=== PATIENT | female | born 1940 | race African-American/Black ===

== ENCOUNTER → 2020-06-29 11:09 | Outpatient (BNVA) | payer MEDICARE, SELFPAY | PROVIDERS: Visit Provider Hospitalist | DX: Z13.89 Encounter for screening for other disorder (principal) | CPT/HCPCS: Q3014 ==

== ENCOUNTER → 2021-01-01 11:18 | Outpatient (BNVA) | payer MEDICARE, SELFPAY | PROVIDERS: Visit Provider Hospitalist | DX: J38.00 Paralysis of vocal cords and larynx, unspecified (principal); J43.2 Centrilobular emphysema; J96.11 Chronic respiratory failure with hypoxia | CPT/HCPCS: 99212 ==

== ENCOUNTER 2021-05-25 17:36 | Inpatient (IN) | payer MEDICARE, OTHER, SELFPAY ==
[2021-05-17 10:08] VITALS: BMI 26.4
[2021-05-25] VITALS (30 sets, daily range): BP systolic 97–219; BP diastolic 53–100; PULSE 71–95; RESP 12–28; TEMP 35.2–36.3; O2SAT 88–100; BMI 27.6
--- NOTE | ~2021-05-25 | XR_ITS ---
EXAMINATION: XR CHEST CLINICAL INFORMATION: Emergent bedside trach COMPARISON: 05/25/2021 TECHNIQUE: Frontal view of the chest was obtained. FINDINGS: Midline tracheostomy in place. This is at the midline. Extensive subcutaneous emphysema within the neck and chest wall, increased from prior. The lungs are well expanded. No consolidation, edema, or effusion. No definite pneumothorax seen, though the presence of subcutaneous emphysema limits the evaluation. The cardiomediastinal silhouette is within normal limits. XR/XR chest 1V IMPRESSION: Tracheostomy tube now in place. Increased subcutaneous emphysema.
--- NOTE | ~2021-05-25 | US_ITS ---
Indication: Edema, pain EXAMINATION: Bilateral lower extremity venous Dopplers. Real-time imaging by the client partner Findings; There is pitting edematous change bilaterally which limits evaluation but given this there is no convincing evidence of filling defect to suggest a thrombus. There is flow documented No evidence of a popliteal fluid collection. The partially visualized calf veins are within normal limits. US/US venous duplex UE LT IMPRESSION: Limited exam from edematous lower extremities. No convincing evidence for DVT bilateral lower extremities
--- NOTE | ~2021-05-25 | US_ITS ---
Indication: Edema, pain EXAMINATION: Bilateral lower extremity venous Dopplers. Real-time imaging by the solid fiber paster operator Findings; There is pitting edematous change bilaterally which limits evaluation but given this there is no convincing evidence of filling defect to suggest a thrombus. There is flow documented No evidence of a popliteal fluid collection. The partially visualized calf veins are within normal limits. US/US venous duplex LE BI IMPRESSION: Limited exam from edematous lower extremities. No convincing evidence for DVT bilateral lower extremities
--- NOTE | ~2021-05-25 | XR_ITS ---
EXAMINATION: XR CHEST CLINICAL INFORMATION: Pneumomediastinum COMPARISON: 05/25/2021 TECHNIQUE: Frontal view of the chest was obtained. XR/XR chest 1V FINDINGS / IMPRESSION: Tracheostomy tube stably positioned. No focal consolidation. No pleural effusion or pneumothorax. No pneumomediastinum. Normal heart size and pulmonary vascularity. Aorta is tortuous and atherosclerotic. Small moderate hiatal hernia.
--- NOTE | ~2021-05-25 | XR_ITS ---
EXAMINATION: XR CHEST CLINICAL INFORMATION: Shortness of breath COMPARISON: April 17, 2006 TECHNIQUE: AP portable view of the chest was obtained. FINDINGS: There is a large amount of subcutaneous air seen about the neck as well as pneumomediastinum there is a density seen medial aspect of the right lung base which may represent mamillation of the right hemidiaphragm versus mass of other etiology. Heart upper limits of normal size. No evidence of pulmonary edema. No definite pneumothorax. Vascular calcifications present. XR/XR chest 1V IMPRESSION: Large amount of subcutaneous air about the neck bilaterally as well as pneumomediastinum. Question possible right base density.
--- NOTE | ~2021-05-25 | XR_ITS ---
EXAMINATION: XR CHEST CLINICAL INFORMATION: Short of breath COMPARISON: None TECHNIQUE: Frontal view of the chest was obtained. FINDINGS: The lungs are well-expanded and clear. The heart size and pulmonary vascularity is normal. No gross bony abnormality seen. XR/XR chest 1V IMPRESSION: Unremarkable chest exam
--- NOTE | 2021-05-25 12:21 | P.HPSUR_ITS ---
Pre-Procedural Eval Section A Date of Service: 05/25/21 The patient is an INPATIENT: No Section B Chief Complaint: bronc,tracheostomy closure Details of Present Illness: Persistent opening of tracheostomy stoma and question of vocal chord paralysis/trach stenosis. Present Medications: see Short Stay Collaborative assessment Allergies: Allergies Allergy/AdvReac Type Severity Reaction Status Date / Time codeine Allergy Severe rash/itchin Verified 05/17/21 10:05 g Review of Systems Sugical H&P ROS: Negative: Constitution, Cardiovascular, Respiratory, Neurological, Psychiatric, Hem-Onc, Allergic/Immunologic, Gastrointestinal, Genitourinary, Musculoskeletal, Integumentary, Endocrine and Eyes/Ears/No se/Throat Exam Surgical H&P Exam: Normal: HEENT, Normal: Heart, Normal: Lungs, Normal: Extremities, Normal: Abdomen, Normal: Skin and Normal: Neurological Plan Diagnosis/Plan: Unchanged I have reviewed the history and physical and performed a pertinent physical examination on my patient. No changes have occurred unless specified.Plan today is for laryngeal mask and bronchoscopy with assessment of the vocal cords and tracheal stenosis followed by revision of tracheostomy stoma with muscle flap and closure.
--- NOTE | 2021-05-25 12:53 | HO.ANESPROP2 ---
HPI - Anesthesia Eval Consult details Narrative: Tracheal dependence [facility] Active Problems Active Problems: All Active Problems (Updated 05/17/21 @ 10:08 by Little Rosario RN) HTN (hypertension) (Acute) Postmenopausal (Acute) Tracheostomy dependence (Acute) Chronic respiratory failure (Acute) COPD (chronic obstructive pulmonary disease) (Acute) Vocal cord paralysis (Acute) Past Medical History Medical History (Updated 05/17/21 @ 10:08 by Little Rosario RN) Chronic respiratory failure COPD (chronic obstructive pulmonary disease) Cough Elevated cholesterol Endocrine alopecia GERD (gastroesophageal reflux disease) Insomnia Low back pain Myocardial infarction Takotsubo syndrome Tracheostomy dependence Vocal cord paralysis Family History Family history of problems with anesthesia: No Surgical History Surgical History (Updated 05/17/21 @ 10:07 by Little Rosario RN) Hx of colonoscopy Hx of tonsillectomy Hx of tracheostomy Hx of umbilical hernia repair History of Problems with Anesthesia: No Social History Social History Are you a primary home care companion to a significant other at home: No Do you presently have visiting nurse or other home services: Yes ([facility] 1 x week) Patient Tobacco Use Status: Former Tobacco user Quit Date: 2015 Tobacco use type: Cigarette Years Smoked: 30+ years e-Cigarette/Vaping Use: Never Used Second Hand Smoke Exposure: No Use of substances other than those prescribed or required for medical reasons: No Are you DNR?: No Advance Directives: No Advance Directives Information Provided: Yes Advance Directives on File: No Meds Allergies Allergy/AdvReac Type Severity Reaction Status Date / Time codeine Allergy Severe rash/itchin Verified 05/17/21 10:05 g Active Medications: Current Medications Cefazolin Sodium/Dextrose (Ancef) 2 gm in 50 mls @ 100 mls/hr IV PREOP ONE Stop: 05/25/21 12:54 Home Medications Medication Instructions Recorded Confirmed Last Taken Type albuterol sulfate 1 vial INHALATION Q4H PRN 05/17/21 05/17/21 Unknown History albuterol sulfate 90 mcg/actuation 2 puff INHALATION Q6H PRN 05/17/21 05/17/21 05/25/21 History aerosol inhaler (ProAir HFA) atorvastatin 80 mg tablet 1 tab PO DAILY 05/17/21 05/17/21 05/25/21 History bisoprolol fumarate 5 mg tablet 1 tab PO DAILY 05/17/21 05/17/21 05/25/21 History budesonide-formoterol HFA 160 2 puff PO BID 05/17/21 05/17/21 05/25/21 History mcg-4.5 mcg/actuation aerosol inhaler (Symbicort) cholecalciferol (vitamin D3) 50 50 mcg PO Q OTHER DAY 05/17/21 05/17/21 05/25/21 History mcg (2,000 unit) capsule (Vitamin D3) ipratropium 0.5 mg-albuterol 3 mg 3 ml INHALATION QID 05/17/21 05/17/21 Unknown History (2.5 mg base)/3 mL nebulization soln omeprazole 10 mg capsule,delayed 10 mg PO DAILY 05/17/21 05/17/21 05/25/21 History release tiotropium bromide 18 mcg capsule 1 cap PO DAILY 05/17/21 05/17/21 05/25/21 History with inhalation device (Spiriva with HandiHaler) Exam Exam Date and Time: May 25, 2021 1253 Height,Weight and Vital Signs: Height 5 ft 1 in Weight 63.503 kg Last Vital Signs Temp 97.4 F 05/25/21 11:29 Pulse 76 05/25/21 11:29 Resp 20 05/25/21 11:29 BP 171/62 H 05/25/21 11:29 Pulse Ox 93 05/25/21 11:29 Airway Mallampati Class: III TM Dist: >3cm Neck ROM: Full Denture: Upper and Lower Loose/Missing/Broken Teeth: Yes Heart: [id number] Lungs: cta b/l Assessment and Plan Assessment Anesthesia Assessment: Anesthesia Plan Discussed and Chart Reviewed Final Anesthetic Review Family History of Problems with Anesthesia: No History of Problems with Anesthesia: No NPO: Yes ASA Class: IV Final Preanesthetic Review: No Changes in Pt Med Stat, Meds/Allgs Chart Reviewed, Consent Obtained/Reviewed and Anes Risks/Benef Reviewed Patient Risk: High Procedure Risk: Intermediate Assessment/Block/Sedation in SS: Assess/Block/Sedation-SS Anesthetic Plan Anesthetic Plan: GA and Agree w/ Assess. and Plan Disposition: Standard PACU
--- NOTE | 2021-05-25 14:33 | W.PM.OPN ---
Operative Note Operative Note Date of Service: 05/25/21 Narrative: Preoperative diagnosis: Patent tracheal stoma Postoperative diagnosis: Same Operation: bronchoscopy and closure of tracheal stoma with strap muscle flaps Surgeon:Simone Dobson MD Computer Installation Engineer: none Anesthesia: General Specimens: None EBL: Minimal Operation in detail: The patient was brought to the operating room, placed supine on the operative table, anesthesia monitoring devices were placed, and the patient was intubated with a laryngeal mask. A time-out was performed confirming the correct patient, site, and procedure. The bronchoscope was then placed through the LMA and the cords were visualized both moving and symmetric. There did appear to be some mild tracheal stenosis just distal to the cords about 18 mm in diameter. The patient was then reintubated with a 6 [place] endotracheal tube. The neck and upper chest were then widely prepped and draped in a standard sterile fashion. After injection of local anesthetic, an incision was made above and below the open tracheal stoma. The skin was then dissected off of the trachea itself above and below about 1 cm each with the Metzenbaum scissors. This was done along with size of the skin attachments as well and the excess skin was excised. The strap muscles were then visualized and mobilized with the Metzenbaum scissors. The hole in the trachea could easily be appreciated in the endotracheal tube beneath it was visualized. Three interrupted 3-0 Vicryl sutures were done to close the tracheal hole itself. The mobilized strap muscles were then closed over the top of the trachea with a running 3-0 Vicryl suture. The skin was then closed with a running 3-0 Vicryl suture Dermabond glue and Steri some. Dressing of Telfa Tegaderm was then applied. The patient tolerated the procedure well, was extubated at the conclusion of the operation, and brought to the recovery room in stable condition.
--- NOTE | 2021-05-25 16:40 | P.OP_ITS ---
Operative Note Operative Note Date of Service: 05/25/21 Narrative: Preoperative diagnosis: Vocal cord edema/tracheal stenosis, hypoxia Postoperative diagnosis:same Procedure:Emergent percutaneous tracheostomy tube placement Surgeon: Francisco Dimas MD, Jeovany Urbano Bacteriology Technician: Anesthesia:General Indications for procedure:Called to see patient for progressive hypoxia in PACU following tracheal closure, unable to place ET tube. Operative findings: emergent tracheostomy tube placement Specimen: none Estimated blood loss:20 mls Complications:none Procedure details: Patient was placed in a supine position in the PACU. Skin was prepped with Betadine. The previous tracheostomy incision was opened with a scalpel. A trachea hook was used to grasp the tracheal and access to the trachea gained with a hemostat at the previous tracheostomy site. The percutaneous guide was advanced distal into the trachea and the dilator placed to the black stripe. Dilator was removed and the tracheostomy advanced easily into the trachea. Tube was suctioned clear. Patient ventilated easily and balloon filled. Tube sutured with Prolene suture. Sterile dressing applied.
[2021-05-25] MEDS: fentaNYL citrate/PF 100 MCG/2 ML VIAL IVPUSH (17:20)
[2021-05-25] MEDS: dexAMETHasone sod phosphate 4 MG/ML VIAL 8 MG IVPUSH (17:33)
[2021-05-25] MEDS: ceFAZolin Sodium/Dextrose,Iso 2 GM/50 ML PIGGYBACK IV (17:33)
[2021-05-25] MEDS: Labetalol HCL 100 MG/20 ML VIAL 10 MG IVPUSH (17:33)
[2021-05-25] MEDS: fentaNYL citrate/PF 100 MCG/2 ML VIAL 50 MCG IVPUSH (18:05)
--- NOTE | 2021-05-25 18:28 | PC.NURSE ---
Pt arrived at ICU at 1720. HPI: complications in post op period that included sub q emphysema, + stridor. MD attempted to intubate with 5.5 ett. Now trach reestablished with 8.0. Per retort feeder ground bone: Plan goals of care tomorrow regarding feeding and the potential to place NGT within the next few days. Current vent settings: SIMV/VC/ 360/16/5/7/.4 tolerating well. Mildly bronchospastic on EtCO2 wave form. MD aware. Tolerating vent well at this time.
--- NOTE | 2021-05-25 18:39 | PHA.MEDREC ---
Pharmacy Consult ? Medication Reconciliation RN completed med rec and pharmacy reviewed.
--- NOTE | 2021-05-25 19:12 | P.PNCC_ITS ---
Critical Care Event Note Summary Date of Service: 05/25/21 Code activated: No Narrative: I was called to the PACU to see Mrs. Garcia bec of acute respiratory failure 2? lower airway obstruction. The patient is a 80 yo F who is immed s/p closure of a tracheal stoma from a previous tracheostomy. Postop in the PACU she developed stridor and resp distress. On my arrival, the patient was being prepared for reintubation. The previous intubation attempt immediately prior to today's surgery had encountered difficulty placing a 6.0 endotracheal tube. I assisted Dr. Hall with the re- intubation attempt in the PACU. A 5.5 tube with the glidescope was prepped. The patient was sedated with ketamine and a 40 mcg bolus Precedex. The glidescope was introduced and the glottis was easily visualized. The 5.5 ETT was placed at the glottic opening but could not be advanced. A 6.0 tube was placed at the glottic opening and a bougie was attempted to be placed through the 6.0 tube into the trachea. The bougie would not advance. The patient was therefore ventilated with the endotracheal tube at the glottic opening, while a tracheostomy was performed. I assisted Dr. Dimas and Dr. Urbano in placing the tracheostomy. After the trach tube was in, there was good oxygenation and good chest rise. The patient was subsequently admitted to the ICU. This case had a high probability of a clinically significant, sudden, or life threatening deterioration of this patient's condition which required my full and direct attention, intervention and personal management. Critical Care Time (minutes): 50 Critical Care Time Critical Care Time (minutes): 60
[2021-05-25] MEDS: HYDROmorphone HCl 0.5 MG/0.5 ML SYRINGE IVPUSH ×3 (19:17→22:06)
--- NOTE | 2021-05-25 19:17 | P.HPCC_ITS ---
History of Present Illness Date of Service: 05/25/21 Attending physician on admission: Simone Dobson Chief Complaint: Airway obstruction Mrs. Garcia was admitted to the ICU following her emergency tracheostomy in the PACU this afternoon. The patient is a 80 yo F with PMHx of coronary artery disease, COPD, cardiac arrest, Takotsubo cardiomyopathy with EF back to normal, essential hypertension, and dyslipidemia.? She is a retired teacher. The patient had a previous tracheostomy about 2 1/2 years ago and was ultimately decannulated.? The stoma, however, remained open after more than a year.? The patient had a productive cough that she felt was hindering the healing of that area.? She presented today for closure of the tracheostomy stoma. The intraop course was notable for inability to pass 6.5 ETT after induction of anesthesia.? A 6.0 tube was used.? Postop the patient was extubated without incident and arrived in PACU breathing easy w Sat 100% on 6L FM.? Subsequently developed resp distress and SQ emphysema.? Attempt at reintubation failed and the patient underwent tracheostomy in the PACU.? Subseq admitted to ICU.? (See my previous note.) On exam in the ICU, the patient was fully awake, c/o pain, able to write notes.? We were able to put her on PSV, with good tidal vols and Sat on PSV 7, but when we gave her opiate analgesics, she hypoventilated so we put her back on AC mode.? HR 82, SR.? BP 122/68.? Sat 96% on 40%/+5.? She has bilat SQ emphysema.? Chest shows coarse crackles. IMPRESSION:? 80 yo woman with above PMHx.? Required emergency tracheostomy in PACU for lower airway obstruction and resp failure, as outlined in my earlier note.? Admitted to ICU overnite for ventilatory management and monitoring. Dx: 1. Airway obstruction 2. Acute respiratory failure. 3. CAD. [facility] Past Medical History Medical History (Updated 05/17/21 @ 10:08 by Little Rosario RN) Chronic respiratory failure COPD (chronic obstructive pulmonary disease) Cough Elevated cholesterol Endocrine alopecia GERD (gastroesophageal reflux disease) Insomnia Low back pain Myocardial infarction Takotsubo syndrome Tracheostomy dependence Vocal cord paralysis Surgical History Surgical History (Updated 05/17/21 @ 10:07 by Little Rosario RN) Hx of colonoscopy Hx of tonsillectomy Hx of tracheostomy Hx of umbilical hernia repair Social History Social History Household Members: None Housing: Apartment Are you a primary health care manager to a significant other at home: No Do you presently have visiting nurse or other home services: Yes Patient Tobacco Use Status: Former Tobacco user Quit Date: 2015 Tobacco use type: Cigarette Years Smoked: 30+ years e-Cigarette/Vaping Use: Never Used Second Hand Smoke Exposure: No Use of substances other than those prescribed or required for medical reasons: No Have you been hit, kicked, punched, or otherwise hurt by someone within the past year? If so, by whom?: No Do you feel safe in your current relationship?: No Current Relationship Is there a partner from a previous relationship who is making you feel unsafe now?: No Are you made to feel afraid or neglected: No Are you DNR?: No Advance Directives: No Advance Directives Information Provided: Yes Advance Directives on File: No Do you have thoughts of harming others: None Do you have a plan to hurt others: No Plan Recently lost weight without trying: No Nutrition Risks: No Nutritional Risk Patient : No : No Poor oral hygiene: No Meds Allergies Allergy/AdvReac Type Severity Reaction Status Date / Time codeine Allergy Severe rash/itchin Verified 05/17/21 10:05 g Active Medications: Current Medications Acetaminophen (Acetaminophen 325 Mg Tablet) 650 mg PO ONCE PRN PRN Reason: Pain, Mild (Pain Scale 1-3) Fentanyl (Fentanyl Citrate/Pf 100 Mcg/2 Ml Vial) 25 mcg IVPUSH Q5M PRN; Protocol PRN Reason: Pain, Moderate (Pain Scale 4-6 Fentanyl (Fentanyl Citrate/Pf 100 Mcg/2 Ml Vial) 25 mcg IVPUSH Q5M PRN; Protocol PRN Reason: mild pain Fentanyl (Fentanyl Citrate/Pf 100 Mcg/2 Ml Vial) 50 mcg IVPUSH Q5M PRN; Protocol PRN Reason: mod pain Hydromorphone HCl (Hydromorphone Hcl 0.5 Mg/0.5 Ml Syringe) 0.5 mg IVPUSH Q1H PRN; Protocol PRN Reason: mild pain Ondansetron HCl (Ondansetron Hcl 4 Mg/2 Ml Vial) 4 mg IVPUSH ONCE PRN PRN Reason: Nausea and Vomiting Home Medications Medication Instructions Recorded Confirmed Last Taken Type albuterol sulfate 1 vial INHALATION Q4H PRN 05/17/21 05/17/21 Unknown History albuterol sulfate 90 mcg/actuation 2 puff INHALATION Q6H PRN 05/17/21 05/17/21 05/25/21 History aerosol inhaler (ProAir HFA) atorvastatin 80 mg tablet 1 tab PO DAILY 05/17/21 05/17/21 05/25/21 History bisoprolol fumarate 5 mg tablet 1 tab PO DAILY 05/17/21 05/17/21 05/25/21 History budesonide-formoterol HFA 160 2 puff PO BID 05/17/21 05/17/21 05/25/21 History mcg-4.5 mcg/actuation aerosol inhaler (Symbicort) cholecalciferol (vitamin D3) 50 50 mcg PO Q OTHER DAY 05/17/21 05/17/21 05/25/21 History mcg (2,000 unit) capsule (Vitamin D3) ipratropium 0.5 mg-albuterol 3 mg 3 ml INHALATION QID 05/17/21 05/17/21 Unknown History (2.5 mg base)/3 mL nebulization soln omeprazole 10 mg capsule,delayed 10 mg PO DAILY 05/17/21 05/17/21 05/25/21 History release tiotropium bromide 18 mcg capsule 1 cap PO DAILY 05/17/21 05/17/21 05/25/21 History with inhalation device (Spiriva with HandiHaler) Physical Exam Vital Signs: Vital Signs: Last Vital Signs Temp 97.1 F 05/25/21 14:40 Pulse 82 05/25/21 16:55 Resp 16 05/25/21 18:05 BP 146/75 H 05/25/21 16:55 Pulse Ox 96 05/25/21 17:36 BMI result Body Mass Index 27.6 Results Imaging Radiologist's Impressions: Impressions Chest X-Ray 05/25/21 15:43 IMPRESSION: Large amount of subcutaneous air about the neck bilaterally as well as pneumomediastinum. Question possible right base density. Chest X-Ray 05/25/21 16:46 IMPRESSION: Tracheostomy tube now in place. Increased subcutaneous emphysema.
[2021-05-26] VITALS (22 sets, daily range): BP systolic 98–134; BP diastolic 42–63; PULSE 73–112; RESP 11–24; TEMP 34–37.1; O2SAT 92–98; BMI 31.2
[2021-05-26] MEDS: HYDROmorphone HCl 0.5 MG/0.5 ML SYRINGE IVPUSH ×5 (00:25→20:47)
[2021-05-26 05:23] LABS: VBG Base Excess 0.7 mmol/L; VBG HCO3 24 mmol/L (22-26); VBG pCO2 34 mmHg; VBG pH 7.44 (7.32-7.43); VBG pO2 54 mmHg
[2021-05-26 05:24] LABS: Venous Blood Gas Refer to POC result
[2021-05-26 05:38] LABS: MANUAL DIFF FLAG NO
[2021-05-26 05:44] LABS: Hematocrit 41.5 % (37.0-47.0); Hemoglobin 13.6 g/dl (12.0-16.0); Imm Gran Abs Auto 0.04 X10*3/uL (0.00-0.03); Imm Gran Pct Auto 0.4 % (0.0-0.4); Lymphocytes Absolute Auto 1.2 X10*3/uL (1.2-4.9); Lymphocytes Percent Auto 10.8 % (20-40); Mean Corpuscular HGB Conc 32.8 g/dl (31.0-35.0); Mean Corpuscular Hemoglobin 31.9 pg (27.0-33.0); Mean Corpuscular Volume 97.4 fL (80.0-98.0); Mean Platelet Volume 10.1 fL (9.4-12.3); Monocytes Absolute Auto 0.3 X10*3/uL (0.1-1.2); Monocytes Percent Auto 2.6 % (2-11); Neutrophils Absolute Auto 9.3 x10*3/uL (2.0-8.3); Neutrophils Percent Auto 86.2 % (45-73); Platelet Count 283 X10*3/uL (160-400); Red Blood Count 4.26 X10*6/uL (4.20-5.50); White Blood Count 10.7 X10*3/uL (4.8-10.8)
[2021-05-26 05:58] LABS: Anion Gap 14 (12-20); Blood Urea Nitrogen 20 mg/dL (9-16); Calcium 8.8 mg/dL (8.4-10.2); Carbon Dioxide 24 mmol/L (22-29); Chloride 103 mmol/L (96-108); Creatinine Clr Calc Pharmacy 60.3; Estimated Glomerular Filt Rate > 60; Glucose Random 123 mg/dL (60-115); Magnesium 1.9 mg/dL (1.6-2.6); Phosphorus 3.4 mg/dL (2.7-4.5); Potassium 4.6 mmol/L (3.3-5.1); Sodium 136 mmol/L (135-145)
[2021-05-26] MEDS: Albuterol/Iprat 2.5/0.5MG 3 ML AMPUL.NEB INHALE ×3 (07:44→19:45)
--- NOTE | 2021-05-26 09:14 | PM.PNGS ---
Subjective Subjective Date of Service: 05/26/21 Interval history: Says that she feels Looks comfortable On vent Physical Exam Vital Signs: Vital Signs: Last Vital Signs Temp 98.7 F 05/26/21 08:00 Pulse 82 05/26/21 08:00 Resp 16 05/26/21 08:00 BP 118/49 L 05/26/21 08:00 Pulse Ox 97 05/26/21 08:00 BMI result Body Mass Index 31.2 Const: Other: Alert although unable to talk because of trach General: comfortable and no acute distress Neck: Other: Trach in place, trach site clean, no bleeding,, no trach leak, packing in place Resp: Other: On vent but appears comfortable, alert Objective Data Active Medications Acetaminophen (Acetaminophen 325 Mg Tablet) 650 mg PO ONCE PRN PRN Reason: Pain, Mild (Pain Scale 1-3) Albuterol Sulfate (Albuterol Sulfate (0.083%) 2.5 Mg/3 Ml Vial.Neb) 2.5 mg INHALE RQ4H PRN PRN Reason: Shortness of Breath Albuterol Sulfate (Albuterol Sulfate 90 Mcg 8 Gm Inhaler) 2 puff INHALE RQ6H PRN PRN Reason: wheezing or sob Albuterol/Ipratropium (Albuterol/Iprat 2.5/0.5mg 3 Ml Ampul.Neb) 3 ml INHALE RQ6H WHILE AWAKE AJIT Last Admin: 05/26/21 07:44 Dose: 3 ml Documented by: KAMERON Fentanyl (Fentanyl Citrate/Pf 100 Mcg/2 Ml Vial) 25 mcg IVPUSH Q5M PRN; Protocol PRN Reason: Pain, Moderate (Pain Scale 4-6 Fentanyl (Fentanyl Citrate/Pf 100 Mcg/2 Ml Vial) 25 mcg IVPUSH Q5M PRN; Protocol PRN Reason: mild pain Fentanyl (Fentanyl Citrate/Pf 100 Mcg/2 Ml Vial) 50 mcg IVPUSH Q5M PRN; Protocol PRN Reason: mod pain Hydromorphone HCl (Hydromorphone Hcl 0.5 Mg/0.5 Ml Syringe) 0.5 mg IVPUSH Q1H PRN; Protocol PRN Reason: mild pain Last Admin: 05/26/21 06:38 Dose: 0.5 mg Documented by: PARUL Ondansetron HCl (Ondansetron Hcl 4 Mg/2 Ml Vial) 4 mg IVPUSH ONCE PRN PRN Reason: Nausea and Vomiting Labs CBC & Chem 7: 05/26/21 05:18 05/26/21 05:18 Labs: Laboratory Results - last 24 hr 05/26/21 05/26/21 05/26/21 05:17 05:18 05:18 MCV 97.4 MCH 31.9 MCHC 32.8 RDW 13.0 Plt Count 283 MPV 10.1 Immature Gran % (Auto) 0.4 Neut % (Auto) 86.2 H Lymph % (Auto) 10.8 L [place] % (Auto) 2.6 Eos % (Auto) 0.0 Baso % (Auto) 0.0 Lymph # (Auto) 1.2 [place] # (Auto) 0.3 Eos # (Auto) 0.0 Baso # (Auto) 0.0 Abs Immat Gran (auto) 0.04 H Absolute Neuts (auto) 9.3 H Absolute Nucleated RBC 0.000 Nucleated RBC % (auto) 0.0 VBG pH 7.44 H VBG pCO2 34 VBG pO2 54 VBG HCO3 24 VBG O2 Saturation 79.0 VBG Base Excess 0.7 Anion Gap 14 Estim Creat Clear Calc 60.3 Estimated GFR > 60 Random Glucose 123 H Calcium 8.8 Phosphorus 3.4 Magnesium 1.9 Procedures Date of Service Date of Service: 05/26/21 Progress Note: A&P Assessment and plan (1) Tracheostomy dependence: Status: Acute Assessment and Plan: Emergent replacement of trach last night PACU Procedure done nonsterile Packing with iodoform in place Recommend to DC the packing tomorrow Rest of trach care as per thoracic Fall Risk Details Current Medications: Current Medications Acetaminophen (Acetaminophen 325 Mg Tablet) 650 mg PO ONCE PRN PRN Reason: Pain, Mild (Pain Scale 1-3) Albuterol Sulfate (Albuterol Sulfate (0.083%) 2.5 Mg/3 Ml Vial.Neb) 2.5 mg INHALE RQ4H PRN PRN Reason: Shortness of Breath Albuterol Sulfate (Albuterol Sulfate 90 Mcg 8 Gm Inhaler) 2 puff INHALE RQ6H PRN PRN Reason: wheezing or sob Albuterol/Ipratropium (Albuterol/Iprat 2.5/0.5mg 3 Ml Ampul.Neb) 3 ml INHALE RQ6H WHILE AWAKE AJIT Last Admin: 05/26/21 07:44 Dose: 3 ml Documented by: Fentanyl (Fentanyl Citrate/Pf 100 Mcg/2 Ml Vial) 25 mcg IVPUSH Q5M PRN; Protocol PRN Reason: Pain, Moderate (Pain Scale 4-6 Fentanyl (Fentanyl Citrate/Pf 100 Mcg/2 Ml Vial) 25 mcg IVPUSH Q5M PRN; Protocol PRN Reason: mild pain Fentanyl (Fentanyl Citrate/Pf 100 Mcg/2 Ml Vial) 50 mcg IVPUSH Q5M PRN; Protocol PRN Reason: mod pain Hydromorphone HCl (Hydromorphone Hcl 0.5 Mg/0.5 Ml Syringe) 0.5 mg IVPUSH Q1H PRN; Protocol PRN Reason: mild pain Last Admin: 05/26/21 06:38 Dose: 0.5 mg Documented by: Ondansetron HCl (Ondansetron Hcl 4 Mg/2 Ml Vial) 4 mg IVPUSH ONCE PRN PRN Reason: Nausea and Vomiting Time Spent With Patient Time: Total time spent is greater than 50% in coordination of care (as documented) at patient's floor/unit and/or counseling patient: Time with patient: 15 - 24 minutes Quality Stroke Does the patient have a stroke diagnosis?: No VTE Prior VTE?: No VTE Risk Level:: Medical - moderate - high VTE Device Contraindication: N/A - Device Ordered VTE Drug Contraindication: Treatment Not Indicated
--- NOTE | 2021-05-26 12:21 | PM.CCPN ---
Subjective Subjective Date of Service: 05/26/21 Interval History: Mrs. Garcia was admitted to the ICU following emergency tracheostomy in the PACU yesterday. The patient is a 80 yo F with PMHx of coronary artery disease, COPD, cardiac arrest, Takotsubo cardiomyopathy with EF back to normal, essential hypertension, and dyslipidemia.? She is a retired teacher. The patient had a previous tracheostomy about 2 1/2 years ago and was ultimately decannulated.? The stoma, however, remained open after more than a year.? The patient had a productive cough that she felt was hindering the healing of that area. ?She presented to the OR yesterday for elective closure of the tracheostomy stoma with Dr. Dobson. The intraop course was notable for inability to pass 6.5 ETT after induction of anesthesia.? A 6.0 tube was used.? The patient underwent strap muscle flap closure of the trach stoma.? Postop the patient was extubated without incident and arrived in PACU breathing easy w Sat 100% on 6L FM.? Subsequently developed resp distress and SQ emphysema.? Attempt at reintubation failed and the patient underwent tracheostomy in the PACU.? (See my previous note.)? She was then admitted to the ICU. Postoperatively in the ICU, the patient was fully awake, c/o pain, able to write notes.? We were able to put her on PSV, with good tidal vols and Sat, but when we gave her opiate analgesics, she hypoventilated so we put her back on AC mode. The night was uneventful.? Today, she is completely awake and interactive, writing notes.? HR 86, BP 134/58.? On PSV 8/30%/+5, RR was 16, Vt 300-600cc, Ve 5L, ETCO2 40, Sat 97%.? She is afebrile.? I changed her trach tube dressing. ?No JVD at 40?.? Bilat SQ emphysema is less.? Chest is CTA.? She has no edema. LABORATORY DATA:? Below. IMPRESSION: 1. Airway obstruction 2. Acute respiratory failure. 3. CAD. 80 yo woman with above PMHx.? Required emergency tracheostomy in PACU for lower airway obstruction and resp failure.? Admitted to ICU for ventilatory management and monitoring. Later on in the day, we tried a Passy-Jacinto valve.? She was able to talk, but c/o difficulty breathing.? I suspect that she doesn?t have enough room around the 8.0 trach tube to breathe adequately.? Reportedly, she previously had an 6.0 trach tube.? Question is, could we change this tube for a 6.0?? I will d/w Dr. Dobson The second major issue is feeding.? Not uncommon to require 2-3 weeks after a tracheostomy to retrain the swallowing mechanism show that 1 can eat.? The patient set she was not hungry today. ?We?ll get a swallow evaluation tomorrow.? We may need to put a nasal KO feed tube in for a little while. Time:? [id number]. Critical Care Time (minutes): 0 Physical Exam Vital Signs: Vital Signs: Last Vital Signs Temp 98.7 F 05/26/21 12:00 Pulse 92 05/26/21 12:00 Resp 12 05/26/21 12:00 BP 134/58 L 05/26/21 12:00 Pulse Ox 97 05/26/21 12:00 BMI result Body Mass Index 31.2 Objective Data Labs CBC & Chem 7: 05/26/21 05:18 05/26/21 05:18 Labs: Laboratory Results - last 24 hr 05/26/21 05/26/21 05/26/21 05:17 05:18 05:18 WBC 10.7 RBC 4.26 Hgb 13.6 Hct 41.5 MCV 97.4 MCH 31.9 MCHC 32.8 RDW 13.0 Plt Count 283 MPV 10.1 Immature Gran % (Auto) 0.4 Neut % (Auto) 86.2 H Lymph % (Auto) 10.8 L [place] % (Auto) 2.6 Eos % (Auto) 0.0 Baso % (Auto) 0.0 Lymph # (Auto) 1.2 [place] # (Auto) 0.3 Eos # (Auto) 0.0 Baso # (Auto) 0.0 Abs Immat Gran (auto) 0.04 H Absolute Neuts (auto) 9.3 H Absolute Nucleated RBC 0.000 Nucleated RBC % (auto) 0.0 VBG pH 7.44 H VBG pCO2 34 VBG pO2 54 VBG HCO3 24 VBG O2 Saturation 79.0 VBG Base Excess 0.7 Sodium 136 Potassium 4.6 Chloride 103 Carbon Dioxide 24 Anion Gap 14 BUN 20 H Creatinine 0.67 Estim Creat Clear Calc 60.3 Estimated GFR > 60 Random Glucose 123 H Calcium 8.8 Phosphorus 3.4 Magnesium 1.9 Quality Stroke Does the patient have a stroke diagnosis?: No VTE Prior VTE?: No VTE Risk Level:: Medical - moderate - high VTE Device Contraindication: N/A - Device Ordered VTE Drug Contraindication: Treatment Not Indicated
[2021-05-26] MEDS: Albuterol Sulfate (0.083%) 2.5 MG/3 ML VIAL.NEB INHALE (15:58)
--- NOTE | 2021-05-26 16:38 | P.PNTS_ITS ---
Subjective Subjective Date of Service: 05/27/21 Interval history: Patient seen and examined this am. Doing well overall. S/p emergent trach after stoma closure last evening. States her breathing is much improved. Remains in ICU, vented on pressure support. No other complaints at this time. Physical Exam Vital Signs: Vital Signs: Last Vital Signs Temp 98.7 F 05/26/21 12:00 Pulse 81 05/26/21 13:03 Resp 16 05/26/21 13:03 BP 134/58 L 05/26/21 12:00 Pulse Ox 97 05/26/21 12:00 BMI result Body Mass Index 31.2 Const: General: cooperative, healthy appearing, comfortable and no acute distress Nutritional Appearance: well nourished Orientation/consciousness: oriented to person, oriented to place, oriented to time and patient oriented x3 Limitations: no limitations HENMT: Head: Yes normal to inspection, Yes normocephalic and Yes atraumatic Mouth: Normal oral and palatal mucosa present Eyes: Visual Echavarria: normal visual echavarria by confrontation Alignment and Position: alignment normal Periorbital: periorbital findings normal Conjunctivae: conjunctivae normal Sclerae: sclerae normal Pupils: Equal, round and reactive pupils present and Pupil accommodation reflex normal EOM: EOMs intact bilaterally Neck: Neck: Yes normal visual inspection, Yes full ROM, Yes no lymphadenopathy, Yes trachea midline, Yes supple, No lymphadenopathy, No tender and No tracheal deviation Lymphatic: no lymphadenopathy noted Chest: Chest palpation & inspection: normal inspection of the chest and no crepitus Resp: Other: Patient now trached, on vent for support. Anterior chest SQ air noted. No extension to neck or arms. Effort & Inspection: normal respiratory effort, able to speak in complete sentences, normal respiratory pattern, no audible wheezes, no cough, no pursed lip breathing, no respiratory distress, no stridor, not tachypneic and no tracheal deviation Auscultation: clear to auscultation bilaterally Cardio: Jugular venous distension: no JVD Palpation: normal PMI Rate: regular rate Rhythm: regular rhythm Heart sounds: S1 normal heart sound present, S2 normal heart sound present, no click, no gallops, no murmurs and no rubs GI: Inspection: Yes normal to inspection Auscultation: normal bowel sounds : General: Yes no CVA tenderness Back/Spine/Pelvis: Back: no CVA tenderness Thoracic/Lumbar Spine: thoracic and lumbar spine normal to inspection Skin: General skin exam: no rashes or lesions noted and dry skin Lesions: no lesions Rashes: no rashes Neuro: General: oriented to person, oriented to place, oriented to time, patient oriented x3 and gait normal Cranial nerves: Yes Equal, round and reactive pupils present Extrem: General: Yes normal to inspection, Yes full ROM, Yes capillary refill normal, Yes no clubbing, cyanosis or edema, Yes no pedal edema and Yes normal gait Psych: Appearance: grossly normal and well kempt Mental Status: mental status grossly normal Speech and movement: Normal speech and movement present and Clear speech present Affect: normal affect Attitude: cooperative Thought process: Normal thought process present Thought content: Normal thought content present Procedures Date of Service Date of Service: 05/26/21 Progress Note: A&P Assessment and plan (1) Tracheostomy dependence: Status: Acute Assessment and Plan: Ms. Garcia is a pleasant 80 y.o. female who underwent bronchoscopy and closure of tracheal stoma with strap muscle flaps with Dr. Dobson on 05/25/21. While in PACU patient developed SQ emphysema, pneumomediastinum, and respiratory distress and required emergent percutaneous tracheostomy. * s/p emergent replacement of trach last night PACU. Remains in ICU on ventilator * Currently on PSV: 30% FiO2, PEEP of 5, and pressure support of 12 * Trach with packing with iodoform in place * Per General Surgery, recommend to DC the packing tomorrow * Will Discuss with Dr. Dobson when he recommends trach change, usually this occ urs 4-6 weeks after the procedure * Continue with VAP precautions * ICU currently managing. Appreciate their input * Nutrition: per nursing, plan will be for patient to trial passy-milana valve and speech eval to see how she tolerates PO Case discussed with Dr. Harry. Fall Risk Details Current Medications: Current Medications Acetaminophen (Acetaminophen 325 Mg Tablet) 650 mg PO ONCE PRN PRN Reason: Pain, Mild (Pain Scale 1-3) Albuterol Sulfate (Albuterol Sulfate (0.083%) 2.5 Mg/3 Ml Vial.Neb) 2.5 mg INHALE RQ4H PRN PRN Reason: Shortness of Breath Last Admin: 05/26/21 15:58 Dose: 2.5 mg Documented by: Albuterol Sulfate (Albuterol Sulfate 90 Mcg 8 Gm Inhaler) 2 puff INHALE RQ6H PRN PRN Reason: wheezing or sob Albuterol/Ipratropium (Albuterol/Iprat 2.5/0.5mg 3 Ml Ampul.Neb) 3 ml INHALE RQ6H WHILE AWAKE AJIT Last Admin: 05/26/21 13:03 Dose: 3 ml Documented by: Fentanyl (Fentanyl Citrate/Pf 100 Mcg/2 Ml Vial) 25 mcg IVPUSH Q5M PRN; Protocol PRN Reason: Pain, Moderate (Pain Scale 4-6 Fentanyl (Fentanyl Citrate/Pf 100 Mcg/2 Ml Vial) 25 mcg IVPUSH Q5M PRN; Protocol PRN Reason: mild pain Fentanyl (Fentanyl Citrate/Pf 100 Mcg/2 Ml Vial) 50 mcg IVPUSH Q5M PRN; Protocol PRN Reason: mod pain Hydromorphone HCl (Hydromorphone Hcl 0.5 Mg/0.5 Ml Syringe) 0.5 mg IVPUSH Q1H PRN; Protocol PRN Reason: mild pain Last Admin: 05/26/21 16:16 Dose: 0.5 mg Documented by: Ondansetron HCl (Ondansetron Hcl 4 Mg/2 Ml Vial) 4 mg IVPUSH ONCE PRN PRN Reason: Nausea and Vomiting Time Spent With Patient Time: Total time spent is greater than 50% in coordination of care (as documented) at patient's floor/unit and/or counseling patient: Time with patient: less than 15 minutes Quality Stroke Does the patient have a stroke diagnosis?: No VTE Prior VTE?: No VTE Risk Level:: Medical - moderate - high VTE Device Contraindication: N/A - Device Ordered VTE Drug Contraindication: Treatment Not Indicated
--- NOTE | 2021-05-26 16:41 | P.POSTANES_ITS ---
Post Anesthesia Evaluation Post Anesthesia Evaluation Vital Signs: Vital Signs Temp Pulse Resp BP Pulse Ox 05/26/21 13:03 81 16 05/26/21 12:00 98.7 F 92 12 134/58 L 97 05/26/21 08:00 98.7 F 82 16 118/49 L 97 05/26/21 06:45 78 17 129/46 L 98 05/26/21 06:38 24 H Anesthesia: General Endotracheal-GETA Mental Status: Awake Pain Control: Satisfactory Nausea/Vomiting: None Hydration: Adequate Anesthesia-Related Issues: No Anes. Related Issues Comments: pt needed a reoperation for new tracheostomy in PACU in a few hours after her closure of tracheostomy. It was done at bedside because of emergency with Precedex and Ketamine. pt has no recollection of either procedure and no other anesthesia related issu e. she still is on mech vent through her new trach, VSS stable with borderline tachycardia.
[2021-05-26] MEDS: fentaNYL citrate/PF 100 MCG/2 ML VIAL 25 MCG IVPUSH (21:27)
[2021-05-26] MEDS: HYDROmorphone HCl 1 MG/ML SYRINGE IVPUSH (21:45)
[2021-05-27] VITALS (33 sets, daily range): BP systolic 94–134; BP diastolic 43–76; PULSE 76–110; RESP 13–21; TEMP 34–37.1; O2SAT 93–98; BMI 29.1
[2021-05-27] MEDS: Albuterol/Iprat 2.5/0.5MG 3 ML AMPUL.NEB INHALE ×3 (07:41→20:04)
[2021-05-27] MEDS: HYDROmorphone HCl 1 MG/ML SYRINGE 0.5 MG IVPUSH ×2 (09:10→20:58)
[2021-05-27] MEDS: Albuterol Sulfate (0.083%) 2.5 MG/3 ML VIAL.NEB INHALE (11:28)
--- NOTE | 2021-05-27 15:54 | PM.PNTS ---
Subjective Subjective Date of Service: 05/29/21 Interval history: Patient seen and examined this afternoon. Remains in ICU. Trached, weaned off ventilator. Now on trach mask. Pending speech eval. Physical Exam Vital Signs: Vital Signs: Last Vital Signs Temp 98.2 F 05/27/21 12:00 Pulse 88 05/27/21 15:00 Resp 19 05/27/21 15:00 BP 118/52 L 05/27/21 15:00 Pulse Ox 97 05/27/21 15:00 BMI result Body Mass Index 29.1 Const: General: cooperative, healthy appearing, comfortable and no acute distress Nutritional Appearance: well nourished Orientation/consciousness: oriented to person, oriented to place, oriented to time and patient oriented x3 Limitations: no limitations HENMT: Head: Yes normal to inspection, Yes normocephalic and Yes atraumatic Mouth: Normal oral and palatal mucosa present Eyes: Visual Echavarria: normal visual echavarria by confrontation Alignment and Position: alignment normal Periorbital: periorbital findings normal Conjunctivae: conjunctivae normal Sclerae: sclerae normal Pupils: Equal, round and reactive pupils present and Pupil accommodation reflex normal EOM: EOMs intact bilaterally Neck: Neck: Yes normal visual inspection, Yes full ROM, Yes no lymphadenopathy, Yes trachea midline, Yes supple, No lymphadenopathy, No tender and No tracheal deviation Lymphatic: no lymphadenopathy noted Chest: Chest palpation & inspection: normal inspection of the chest and no crepitus Resp: Other: Patient breathing comfortably. Trached, currently on trach mask. Scattered rhonchi throughout. Anterior chest SQ air noted. Extension to right neck and cheek noted. No extension to arms. Effort & Inspection: normal respiratory effort, able to speak in complete sentences, normal respiratory pattern, no audible wheezes, no cough, no pursed lip breathing, no respiratory distress, no stridor, not tachypneic and no tracheal deviation Auscultation: clear to auscultation bilaterally Cardio: Jugular venous distension: no JVD Palpation: normal PMI Rate: regular rate Rhythm: regular rhythm Heart sounds: S1 normal heart sound present, S2 normal heart sound present, no click, no gallops, no murmurs and no rubs GI: Inspection: Yes normal to inspection Auscultation: normal bowel sounds : General: Yes no CVA tenderness Back/Spine/Pelvis: Back: no CVA tenderness Thoracic/Lumbar Spine: thoracic and lumbar spine normal to inspection Skin: General skin exam: no rashes or lesions noted and dry skin Lesions: no lesions Rashes: no rashes Neuro: General: oriented to person, oriented to place, oriented to time, patient oriented x3 and gait normal Cranial nerves: Yes Equal, round and reactive pupils present Extrem: General: Yes normal to inspection, Yes full ROM, Yes capillary refill normal, Yes no clubbing, cyanosis or edema, Yes no pedal edema and Yes normal gait Psych: Appearance: grossly normal and well kempt Mental Status: mental status grossly normal Speech and movement: Normal speech and movement present and Clear speech present Affect: normal affect Attitude: cooperative Thought process: Normal thought process present Thought content: Normal thought content present Procedures Date of Service Date of Service: 05/27/21 Progress Note: A&P Assessment and plan (1) Tracheostomy dependence: Status: Acute Assessment and Plan: Ms. Garcia is a pleasant 80 y.o. female who underwent bronchoscopy and closure of tracheal stoma with strap muscle flaps with Dr. Dobson on 05/25/21. While in PACU patient developed SQ emphysema, pneumomediastinum, and respiratory distress and required emergent percutaneous tracheostomy. s/p emergent replacement of trach. Remains in ICU due to tracheostomy. Weaned off ventilator this afternoon and currently on trach mask. Discussed possible trach change from #8 to #6 trach. No plan to do this in the immediate future due to recent placement on 05/25/21 Continue with VAP precautions ICU currently managing. Appreciate their input Nutrition: Speech eval pending today. Failed passy-milana valve trial yesterday. If speech eval does not go well today, patient may require KO tube feeding. Discussed plan with Dr. Galloway Case discussed with Dr. Dobson. Fall Risk Details Current Medications: Current Medications Acetaminophen (Acetaminophen 325 Mg Tablet) 650 mg PO ONCE PRN PRN Reason: Pain, Mild (Pain Scale 1-3) Albuterol Sulfate (Albuterol Sulfate (0.083%) 2.5 Mg/3 Ml Vial.Neb) 2.5 mg INHALE RQ4H PRN PRN Reason: Shortness of Breath Last Admin: 05/27/21 11:28 Dose: 2.5 mg Documented by: Albuterol Sulfate (Albuterol Sulfate 90 Mcg 8 Gm Inhaler) 2 puff INHALE RQ6H PRN PRN Reason: wheezing or sob Albuterol/Ipratropium (Albuterol/Iprat 2.5/0.5mg 3 Ml Ampul.Neb) 3 ml INHALE RQ6H WHILE AWAKE [facility] Last Admin: 05/27/21 15:28 Dose: 3 ml Documented by: Fentanyl (Fentanyl Citrate/Pf 100 Mcg/2 Ml Vial) 25 mcg IVPUSH Q5M PRN; Protocol PRN Reason: Pain, Moderate (Pain Scale 4-6 Last Admin: 05/26/21 21:27 Dose: 25 mcg Documented by: Fentanyl (Fentanyl Citrate/Pf 100 Mcg/2 Ml Vial) 25 mcg IVPUSH Q5M PRN; Protocol PRN Reason: mild pain Fentanyl (Fentanyl Citrate/Pf 100 Mcg/2 Ml Vial) 50 mcg IVPUSH Q5M PRN; Protocol PRN Reason: mod pain Hydromorphone HCl (Hydromorphone Hcl 1 Mg/Ml Syringe) 0.5 mg IVPUSH Q1H PRN; Protocol PRN Reason: mild pain Last Admin: 05/27/21 09:10 Dose: 0.5 mg Documented by: Ondansetron HCl (Ondansetron Hcl 4 Mg/2 Ml Vial) 4 mg IVPUSH ONCE PRN PRN Reason: Nausea and Vomiting Pantoprazole Sodium (Pantoprazole Sodium 40 Mg/10 Ml Vial) 40 mg IVPUSH DAILY@0630 [facility] Time Spent With Patient Time: Total time spent is greater than 50% in coordination of care (as documented) at patient's floor/unit and/or counseling patient: Time with patient: less than 15 minutes Quality Stroke Does the patient have a stroke diagnosis?: No VTE Prior VTE?: No VTE Risk Level:: Medical - moderate - high VTE Device Contraindication: N/A - Device Ordered VTE Drug Contraindication: Treatment Not Indicated
[2021-05-27] MEDS: Pantoprazole Sodium 40 MG/10 ML VIAL IVPUSH (16:10)
[2021-05-27 17:39] LABS: COVID-19 Test Negative (Negative)
--- NOTE | 2021-05-27 20:45 | P.PNCC_ITS ---
Subjective Subjective Date of Service: 05/27/21 Interval History: Mrs. Garcia was admitted to the ICU following emergency tracheostomy in the PACU on May 25. The patient is a 80 yo F with PMHx of coronary artery disease, COPD, cardiac arrest, Takotsubo cardiomyopathy with EF back to normal, essential hypertension, and dyslipidemia.? She is a retired teacher. The patient had a previous tracheostomy about 2 1/2 years ago and was ultimately decannulated.? The stoma, however, remained open after more than a year.? The p atient had a productive cough that she felt was hindering the healing of that area.? She presented to the OR on May 25 for elective closure of the tracheostomy stoma with Dr. Dobson. The intraop course was notable for inability to pass a 6.5 ETT after induction of anesthesia.? A 6.0 tube was used.? The patient underwent strap muscle flap closure of the trach stoma.? Postop the patient was extubated without incident and arrived in PACU breathing easy w Sat 100% on 6L FM.? Subsequently developed resp distress and SQ emphysema.? Attempts at reintubation failed and the patient underwent tracheostomy in the PACU.? (See my initial note.)? She was then admitted to the ICU. Postoperatively in the ICU, the patient was fully awake, c/o pain, able to write notes.? We were able to put her on PSV, with good tidal vols and Sat, but when we gave her opiate analgesics, she hypoventilated so we put her back on AC mode. Since then she?s had a mostly uneventful course.? She remains fully awake with normal mental status.? Able to write notes.? Not too difficult to understand when she mouths words.? Attempts to use a Passy [place] valve yesterday failed bec she wasn?t able to breathe adequately enough around the tracheostomy.? She did perfectly fine today on a trach collar, but didn?t like all the noise from the air entrainment system.? On trach collar, approx. 25% FiO2, RR was 118, Sat 95%.? HR 104, BP 118/52.? She is afebrile.? No JVD at 40?.? Bilat SQ emphysema is about the same as yest.? Chest has more Velcro sounds today.? She has no edema. LABORATORY DATA:? No labs today. IMPRESSION: 1. Airway obstruction 2. Acute respiratory failure. 3. CAD. 80 yo woman with above PMHx.? Required emergency tracheostomy in PACU for lower airway obstruction and resp failure.? Admitted to ICU for ventilatory management and monitoring.? She does well with the trach collar but is about anxious about it.? Might do better with the Passy Westhope valve if her trach tube was changed to a 6.0. The second major issue is feeding.? Not uncommon to require 2-3 weeks after a tracheostomy to retrain the swallowing mechanism so that one can eat.? She h asn?t been hungry yet.? We?ll get a swallow evaluation tomorrow.? I talked to her about a temporary PEG vs a temporary nasal Kaofeed tube, if necessary.? She doesn?t want a PEG, said she would accept a nasal Kaofeed tube. For now, I have her on D5LR. Time:? [id number]. Critical Care Time (minutes): 0 Physical Exam Vital Signs: Vital Signs: Last Vital Signs Temp 98.2 F 05/27/21 17:00 Pulse 100 05/27/21 20:04 Resp 18 05/27/21 20:04 BP 109/52 L 05/27/21 20:00 Pulse Ox 95 05/27/21 20:00 BMI result Body Mass Index 29.1 Objective Data Labs CBC & Chem 7: 05/26/21 05:18 05/26/21 05:18 Labs: Laboratory Results - last 24 hr 05/27/21 17:18 COVID-19 ([facility]) Negative COVID-19 Clin Com See Note Quality Stroke Does the patient have a stroke diagnosis?: No VTE Prior VTE?: No VTE Risk Level:: Medical - moderate - high VTE Device Contraindication: N/A - Device Ordered VTE Drug Contraindication: Treatment Not Indicated
[2021-05-27] MEDS: Dextrose 5 % and Lactated Ring 1,000 ML 150 ML IVCONT (22:53)
[2021-05-28] VITALS (20 sets, daily range): BP systolic 95–154; BP diastolic 41–68; PULSE 78–106; RESP 16–24; TEMP 34.6–37.6; O2SAT 91–98; BMI 32.1
[2021-05-28] MEDS: HYDROmorphone HCl 0.5 MG/0.5 ML SYRINGE IVPUSH ×4 (02:19→16:39)
[2021-05-28] MEDS: Dextrose 5 % and Lactated Ring 1,000 ML 150 ML IVCONT (05:53)
[2021-05-28] MEDS: Pantoprazole Sodium 40 MG/10 ML VIAL IVPUSH (06:07)
[2021-05-28 06:11] LABS: Hematocrit 36.9 % (37.0-47.0); Hemoglobin 12.1 g/dl (12.0-16.0); Mean Corpuscular HGB Conc 32.8 g/dl (31.0-35.0); Mean Corpuscular Hemoglobin 31.6 pg (27.0-33.0); Mean Corpuscular Volume 96.3 fL (80.0-98.0); Mean Platelet Volume 10.1 fL (9.4-12.3); Platelet Count 235 X10*3/uL (160-400); Red Blood Count 3.83 X10*6/uL (4.20-5.50); Red Cell Distribution Width 13.1 % (11.0-16.0); White Blood Count 9.9 X10*3/uL (4.8-10.8)
[2021-05-28 06:32] LABS: Anion Gap 11 (12-20); Blood Urea Nitrogen 17 mg/dL (9-16); Calcium 8.4 mg/dL (8.4-10.2); Carbon Dioxide 26 mmol/L (22-29); Chloride 104 mmol/L (96-108); Estimated Glomerular Filt Rate > 60; Glucose Random 109 mg/dL (60-115); Phosphorus 2.6 mg/dL (2.7-4.5); Potassium 3.3 mmol/L (3.3-5.1); Sodium 138 mmol/L (135-145)
[2021-05-28] MEDS: Albuterol/Iprat 2.5/0.5MG 3 ML AMPUL.NEB INHALE ×2 (07:51→21:18)
--- NOTE | 2021-05-28 08:04 | MHC.PIE ---
PAIN MANAGMENT - TRACH INSERTION SITE - MEDICATED W/ 0.5MG IVP DILAUDID X3 - @ 8237, 8649, 0685 WITH RELIEF. PATIENT RESTING, REPOS ONCE - CHANGE OF LINENS OTHERIWISE REFUSING REPOS.
--- NOTE | 2021-05-28 09:26 | MHC.CM.PN ---
PATIENT LIVES ALONE. 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 SHE IS COVID-19 VACCINATED [employer] 08/14/20 PFIZER BOOSTER 04/21/21 PATIENT IS AGREEABLE OT ASSIGNING A HCP, NAMING HER DAUGHTER AND GRAND DAUGHTER. CASE MANAGEMENT TO ASSIST WITH COMPLETION AND UPLOAD INTO [facility] IMM 05/28 IN CHART
[2021-05-28] MEDS: Dextrose 5 % and Lactated Ring 1,000 ML 50 ML IVCONT (12:56)
--- NOTE | 2021-05-28 13:41 | P.PNCC_ITS ---
Subjective Subjective Date of Service: 05/28/21 Interval History: 80-year-old female with coronary disease an episode of Takotsubo cardiomyopathy that resolved to a normal ejection fraction and an underlying hypertensive and COPD patient who had a tracheostomy 2 and half years ago and since D cannulated and nonhealing stoma brought in electively 2 days ago to have a flap closure done by CT surgery the surgery went successfully extubated doing well at 15-20 minutes later following a did a deep cough she developed severe respiratory distress unable to move air became dense lead cyano tic with subcutaneous air and had a clear-cut acute pneumomediastinum and the no the question of course is whether not the might have been a bleed hematoma but 1 way of the other required emergent reopening of the tracheostomy placement of a 8. Cuffed tube and she was on the ventilator and weaned spent 6 hours yesterday on a a tracheostomy cuff and today as well so currently has the balloon down and is on the tracheostomy cuff with oxygen saturations in the mid 90s respiratory rates in the 20s without any respiratory effort or distress did not have her swallow evaluation and the strict instructions from Cardiothoracic surgery was not to touch the tube until the site heals completely and that is weeks down the line so apparently this is not going to be replaced by a down sized tube at any point so some evaluation in the next 1 or 2 days possibly in conjunction with Dr. Caba is a advice needs to take place as far as the ability to feed and she is refusing a PEG tube ultimately she said she would agree to an NG tube for feeding purposes if need be all lab work is basically fine physically doing well bedside echo demonstrating normal LV systolic function no primary valve or pericardial disease Critical Care Time (minutes): 60 Physical Exam Vital Signs: Vital Signs: Last Vital Signs Temp 99.6 F 05/28/21 12:00 Pulse 85 05/28/21 12:00 Resp 21 H 05/28/21 12:00 BP 136/61 05/28/21 12:00 Pulse Ox 94 05/28/21 12:00 BMI result Body Mass Index 32.1 awake alert nonfocal neurologically cardiovascular normal by echo lungs clear bilaterally with no stridor and no adventitious yvan nds abdomen soft with no organomeg lottie skin is normal no peripheral edema no acrocyanosis Objective Data Labs CBC & Chem 7: 05/28/21 05:23 05/28/21 05:23 Labs: Laboratory Results - last 24 hr 05/27/21 05/28/21 05/28/21 17:18 05:23 05:23 WBC 9.9 RBC 3.83 L Hgb 12.1 Hct 36.9 L MCV 96.3 MCH 31.6 MCHC 32.8 RDW 13.1 Plt Count 235 MPV 10.1 Absolute Nucleated RBC 0.000 Nucleated RBC % (auto) 0.0 Sodium 138 Potassium 3.3 D Chloride 104 Carbon Dioxide 26 Anion Gap 11 L BUN 17 H Creatinine 0.61 Estim Creat Clear Calc 68.0 Estimated GFR > 60 Random Glucose 109 Calcium 8.4 Phosphorus 2.6 L Magnesium 2.0 COVID-19 ([facility]) Negative COVID-19 Clin Com See Note Progress Note: A&P Assessment and plan (1) HTN (hypertension): Status: Acute (2) Tracheostomy dependence: Status: Acute (3) Chronic respiratory failure: Status: Acute (4) COPD (chronic obstructive pulmonary disease): Status: Acute (5) Acute respiratory failure with hypoxia and hypercarbia: Status: Acute (6) Acquired pneumomediastinum: Status: Acute Assessment and Plan: doing well stable under 7 hours of observation on a trach cuff with low FiO2 in the 30% range L flow at about the 7-8 liters/minute no respiratory distress no stridor with the cuff down and this is a 8. Tracheostomy tube and cardiothoracic surgery will follow at least from a distance but does not want to tube replaced or tampered with at at this point in time swallow evaluation in another day or 2 and that is pending Quality Stroke Does the patient have a stroke diagnosis?: No VTE Prior VTE?: No VTE Risk Level:: Medical - moderate - high VTE Device Contraindication: N/A - Device Ordered VTE Drug Contraindication: Treatment Not Indicated
--- NOTE | 2021-05-28 14:50 | PM.EVENT ---
Event Note Date of Service: 05/28/21 Event Note: Tx from ICU with trach replacement
--- NOTE | 2021-05-28 15:46 | PM.PNTS ---
Subjective Subjective Date of Service: 05/28/21 Interval history: Patient was seen and examined this morning. This is a late entry from that examination. During my examination patient was with speech therapy performing swallow study. Patient was placed on the ventilator yesterday evening due to reported over sedation with as needed Dilaudid. She was taken off ventilator this morning and placed on trach collar 30% FiO2 which she was tolerating well. However during Pap smear valve trial patient became dyspneic and was unable to perform swallow study. Patient states she would like to try again tomorrow.She does not wish to have a PEG tube placed and if tomorrow she does not fact not pass a swallow study she may require NG tube Physical Exam Vital Signs: Vital Signs: Last Vital Signs Temp 97.6 F 05/28/21 15:04 Pulse 106 H 05/28/21 15:04 Resp 22 H 05/28/21 15:04 BP 154/68 H 05/28/21 15:04 Pulse Ox 95 05/28/21 15:04 BMI result Body Mass Index 32.1 Const: General: cooperative, healthy appearing, comfortable and no acute distress Nutritional Appearance: well nourished Orientation/consciousness: oriented to person, oriented to place, oriented to time and patient oriented x3 Limitations: no limitations HENMT: Head: Yes normal to inspection, Yes normocephalic and Yes atraumatic Mouth: Normal oral and palatal mucosa present Eyes: Visual Echavarria: normal visual echavarria by confrontation Alignment and Position: alignment normal Periorbital: periorbital findings normal Conjunctivae: conjunctivae normal Sclerae: sclerae normal Pupils: Equal, round and reactive pupils present and Pupil accommodation reflex normal EOM: EOMs intact bilaterally Neck: Neck: Yes normal visual inspection, Yes full ROM, Yes no lymphadenopathy, Yes trachea midline, Yes supple, No lymphadenopathy, No tender and No tracheal deviation Lymphatic: no lymphadenopathy noted Chest: Chest palpation & inspection: normal inspection of the chest and no crepitus Resp: Other: Patient breathing comfortably. Trached, currently on trach mask. Scattered rhonchi throughout. Anterior chest SQ air noted. Extension to right neck and cheek noted. No extension to arms. Effort & Inspection: normal respiratory effort, able to speak in complete sentences, normal respiratory pattern, no audible wheezes, no cough, no pursed lip breathing, no respiratory distress, no stridor, not tachypneic and no tracheal deviation Auscultation: clear to auscultation bilaterally Cardio: Jugular venous distension: no JVD Palpation: normal PMI Rate: regular rate Rhythm: regular rhythm Heart sounds: S1 normal heart sound present, S2 normal heart sound present, no click, no gallops, no murmurs and no rubs GI: Inspection: Yes normal to inspection Auscultation: normal bowel sounds : General: Yes no CVA tenderness Back/Spine/Pelvis: Back: no CVA tenderness Thoracic/Lumbar Spine: thoracic and lumbar spine normal to inspection Skin: General skin exam: no rashes or lesions noted and dry skin Lesions: no lesions Rashes: no rashes Neuro: General: oriented to person, oriented to place, oriented to time, patient oriented x3 and gait normal Cranial nerves: Yes Equal, round and reactive pupils present Extrem: General: Yes normal to inspection, Yes full ROM, Yes capillary refill normal, Yes no clubbing, cyanosis or edema, Yes no pedal edema and Yes normal gait Psych: Appearance: grossly normal and well kempt Mental Status: mental status grossly normal Speech and movement: Normal speech and movement present and Clear speech present Affect: normal affect Attitude: cooperative Thought process: Normal thought process present Thought content: Normal thought content present Procedures Date of Service Date of Service: 05/28/21 Progress Note: A&P Assessment and plan (1) Tracheostomy dependence: Status: Acute Assessment and Plan: Ms. Garcia is a pleasant 80 y.o. female who underwent bronchoscopy and closure of tracheal stoma with strap muscle flaps with Dr. Dobson on 05/25/21. While in PACU patient developed SQ emphysema, pneumomediastinum, and respiratory distress and required emergent percutaneous tracheostomy. Patient was placed back on ventilator yesterday evening due to reported oversedation with Dilaudid. Placed back on trach mask this morning which she has tolerated well. Patient was unable to tolerate Passy-Jacinto valve trial today and and therefore was unable to move forward with swallow study with speech pathologist. De La Cruz catheter remains indwelling and should be discontinued today. Plan for repeat swallow study and Passy-[place] valve trial. Her #8 tracheostomy tube cannot be downgraded to a 6 for 4 to [address] Simone Moreno. ICU currently managing. Appreciate their input. Plan is to transition to floor once she has successively performed a 7 to 8-hour trach mask trial. Case discussed with Dr. Harry. Fall Risk Details Current Medications: Current Medications Albuterol Sulfate (Albuterol Sulfate (0.083%) 2.5 Mg/3 Ml Vial.Neb) 2.5 mg INHALE RQ4H PRN PRN Reason: Shortness of Breath Last Admin: 05/27/21 11:28 Dose: 2.5 mg Documented by: Albuterol Sulfate (Albuterol Sulfate 90 Mcg 8 Gm Inhaler) 2 puff INHALE RQ6H PRN PRN Reason: wheezing or sob Albuterol/Ipratropium (Albuterol/Iprat 2.5/0.5mg 3 Ml Ampul.Neb) 3 ml INHALE RQ6H WHILE AWAKE [facility] Last Admin: 05/28/21 07:51 Dose: 3 ml Documented by: Hydromorphone HCl (Hydromorphone Hcl 0.5 Mg/0.5 Ml Syringe) 0.5 mg IVPUSH Q1H PRN; Protocol PRN Reason: mild pain Last Admin: 05/28/21 11:57 Dose: 0.5 mg Documented by: Dextrose/Lactated Ringer's (D5lr) 1,000 mls @ 50 mls/hr IVCONT .Q20H [facility] Last Admin: 05/28/21 12:56 Dose: 50 mls/hr Documented by: Ondansetron HCl (Ondansetron Hcl 4 Mg/2 Ml Vial) 4 mg IVPUSH ONCE PRN PRN Reason: Nausea and Vomiting Pantoprazole Sodium (Pantoprazole Sodium 40 Mg/10 Ml Vial) 40 mg IVPUSH DAILY@0630 [facility] Last Admin: 05/28/21 06:07 Dose: 40 mg Documented by: Time Spent With Patient Time: Total time spent is greater than 50% in coordination of care (as documented) at patient's floor/unit and/or counseling patient: Time with patient: 15 - 24 minutes Quality Stroke Does the patient have a stroke diagnosis?: No VTE Prior VTE?: No VTE Risk Level:: Medical - moderate - high VTE Device Contraindication: N/A - Device Ordered VTE Drug Contraindication: Treatment Not Indicated
[2021-05-28 16:27] LABS: Venous Blood Gas Refer to POC result
[2021-05-29] VITALS (14 sets, daily range): BP systolic 130–150; BP diastolic 51–78; PULSE 80–107; RESP 16–20; TEMP 36.6–37.1; O2SAT 91–98; BMI 28.5
[2021-05-29] MEDS: HYDROmorphone HCl 0.5 MG/0.5 ML SYRINGE IVPUSH ×5 (00:20→21:48)
[2021-05-29] MEDS: Pantoprazole Sodium 40 MG/10 ML VIAL IVPUSH (06:04)
[2021-05-29 06:06] LABS: Hematocrit 41.4 % (37.0-47.0); Hemoglobin 13.4 g/dl (12.0-16.0); Mean Corpuscular HGB Conc 32.4 g/dl (31.0-35.0); Mean Corpuscular Hemoglobin 32.2 pg (27.0-33.0); Mean Corpuscular Volume 99.5 fL (80.0-98.0); Mean Platelet Volume 10.5 fL (9.4-12.3); Platelet Count 221 X10*3/uL (160-400); Red Blood Count 4.16 X10*6/uL (4.20-5.50); Red Cell Distribution Width 13.1 % (11.0-16.0); White Blood Count 10.7 X10*3/uL (4.8-10.8)
--- NOTE | 2021-05-29 06:07 | PC.NURSE ---
Addendum entered by Kallie Hudson RN 05/29/21 06:37: Patient voided on bedpan about 200 mls, yellow urine, patient also incontinent large amount. Next dtv at 1230pm Original Note: 0000; ott catheter removed at 0015, ott catheter emptied for 100 mls dark yellow urine. Patient voided 150 mls via bedpan at 0030, due to void at 0630
[2021-05-29 06:24] LABS: Anion Gap 11 (12-20); Blood Urea Nitrogen 8 mg/dL (9-16); Calcium 8.6 mg/dL (8.4-10.2); Carbon Dioxide 29 mmol/L (22-29); Chloride 102 mmol/L (96-108); Creatinine Clr Calc Pharmacy 74.6; Estimated Glomerular Filt Rate > 60; Glucose Random 112 mg/dL (60-115); Potassium 3.7 mmol/L (3.3-5.1); Sodium 138 mmol/L (135-145)
[2021-05-29] MEDS: Dextrose 5 % and Lactated Ring 1,000 ML 50 ML IVCONT (08:08)
[2021-05-29] MEDS: Albuterol/Iprat 2.5/0.5MG 3 ML AMPUL.NEB INHALE ×3 (08:13→19:16)
--- NOTE | 2021-05-29 08:23 | P.PNTS_ITS ---
Subjective Subjective Date of Service: 05/30/21 Interval history: Patient seen and examined this am. Downgraded to regular floor. On trach mask. Patient is eager to eat, speech eval to be done today. Patient is performing self suctioning. She denies any fevers, chills, respiratory distress, or difficulty breathing. Has not ambulated since her admission. Will plan on ambulating with nursing today Physical Exam Vital Signs: Vital Signs: Last Vital Signs Temp 98.6 F 05/29/21 07:32 Pulse 88 05/29/21 08:16 Resp 18 05/29/21 08:16 BP 140/68 H 05/29/21 07:32 Pulse Ox 91 L 05/29/21 07:32 BMI result Body Mass Index 28.5 Const: Other: Alert although unable to talk because of trach General: cooperative, healthy appearing, comfortable and no acute distress Nutritional Appearance: well nourished Orientation/consciousness: oriented to person, oriented to place, oriented to time and patient oriented x3 Limitations: no limitations and No language barrier HENMT: Head: Yes normal to inspection, Yes normocephalic and Yes atraumatic Mouth: Normal oral and palatal mucosa present Eyes: Visual Chiu: normal visual chiu by confrontation Alignment and Position: alignment normal Periorbital: periorbital findings normal Conjunctivae: conjunctivae normal Sclerae: sclerae normal Pupils: Equal, round and reactive pupils present and Pupil accommodation reflex normal EOM: EOMs intact bilaterally Neck: Other: Trach in place, trach site clean, no bleeding,, no trach leak, packing in place Neck: Yes normal visual inspection, Yes full ROM, Yes no lymphadenopathy, Yes trachea midline, Yes supple, No lymphadenopathy, No tender and No tracheal deviation Lymphatic: no lymphadenopathy noted Chest: Chest palpation & inspection: normal inspection of the chest and no crepitus Resp: Other: Patient breathing comfortably. Trached, currently on trach mask. Scattered expiratory wheezes throughout. Anterior chest SQ air noted. Extension to right neck and cheek noted. No extension to arms. Effort & Inspection: normal respiratory effort, able to speak in complete sentences, normal respiratory pattern, no audible wheezes, no cough, no pursed lip breathing, no respiratory distress, no stridor, not tachypneic and no tracheal deviation Cardio: Jugular venous distension: no JVD Palpation: normal PMI Rate: regular rate Rhythm: regular rhythm Heart sounds: S1 normal heart sound present, S2 normal heart sound present, no click, no gallops, no murmurs and no rubs GI: Inspection: Yes normal to inspection Auscultation: normal bowel sounds : General: Yes no CVA tenderness Back/Spine/Pelvis: Back: no CVA tenderness Thoracic/Lumbar Spine: thoracic and lumbar spine normal to inspection Skin: General skin exam: no rashes or lesions noted and dry skin Lesions: no lesions Rashes: no rashes Neuro: General: oriented to person, oriented to place, oriented to time, patient oriented x3 and gait normal Cranial nerves: Yes Equal, round and reactive pupils present Extrem: General: Yes normal to inspection, Yes full ROM, Yes capillary refill normal, Yes no clubbing, cyanosis or edema, Yes no pedal edema and Yes normal gait Psych: Appearance: grossly normal and well kempt Mental Status: mental status grossly normal Speech and movement: Normal speech and movement present and Clear speech present Affect: normal affect Attitude: cooperative Thought process: Normal thought process present Thought content: Normal thought content present Procedures Date of Service Date of Service: 05/29/21 Progress Note: A&P Assessment and plan (1) Tracheostomy dependence: Status: Acute Assessment and Plan: Ms. Garcia is a pleasant 80 y.o. female who underwent bronchoscopy and closure of tracheal stoma with strap muscle flaps with Dr. Dobson on 05/25/21. While in PACU patient developed SQ emphysema, pneumomediastinum, and respiratory distress and required emergent percutaneous tracheostomy. * s/p emergent replacement of tracheostomy. Downgraded from ICU yesterday to telemetry unit. Tolerating trach mask, able to perform self suction and trach care as this is not new to her. * Discussed possible trach change from #8 to #6 trach. No plan to do this in the immediate future due to recent placement on 05/25/21. Patient may require replacement in 4-6 weeks to a smaller tracheostomy tube. * PT eval placed * DVT prophylaxis: Intermittent pneumatic compression stockings * Nutrition: Speech eval pending today. Failed passy-milana valve trial yesterday. If speech eval does not go well today, patient may require NG tube insertion for nutrition Case discussed with Dr. Dobson. Please call with any questions or concerns. Fall Risk Details Current Medications: Current Medications Albuterol Sulfate (Albuterol Sulfate (0.083%) 2.5 Mg/3 Ml Vial.Neb) 2.5 mg INHALE RQ4H PRN PRN Reason: Shortness of Breath Last Admin: 05/27/21 11:28 Dose: 2.5 mg Documented by: Albuterol Sulfate (Albuterol Sulfate 90 Mcg 8 Gm Inhaler) 2 puff INHALE RQ6H PRN PRN Reason: wheezing or sob Albuterol/Ipratropium (Albuterol/Iprat 2.5/0.5mg 3 Ml Ampul.Neb) 3 ml INHALE RQ6H WHILE AWAKE [facility] Last Admin: 05/29/21 08:13 Dose: 3 ml Documented by: Hydromorphone HCl (Hydromorphone Hcl 0.5 Mg/0.5 Ml Syringe) 0.5 mg IVPUSH Q1H PRN; Protocol PRN Reason: mild pain Last Admin: 05/29/21 06:43 Dose: 0.5 mg Documented by: Dextrose/Lactated Ringer's (D5lr) 1,000 mls @ 50 mls/hr IVCONT .Q20H [facility] Last Admin: 05/29/21 08:08 Dose: 50 mls/hr Documented by: Ondansetron HCl (Ondansetron Hcl 4 Mg/2 Ml Vial) 4 mg IVPUSH ONCE PRN PRN Reason: Nausea and Vomiting Pantoprazole Sodium (Pantoprazole Sodium 40 Mg/10 Ml Vial) 40 mg IVPUSH DAILY@0630 [facility] Last Admin: 05/29/21 06:04 Dose: 40 mg Documented by: Time Spent With Patient Time: Total time spent is greater than 50% in coordination of care (as documented) at patient's floor/unit and/or counseling patient: Time with patient: less than 15 minutes Quality Stroke Does the patient have a stroke diagnosis?: No VTE Prior VTE?: No VTE Risk Level:: Medical - moderate - high VTE Device Contraindication: N/A - Device Ordered VTE Drug Contraindication: Treatment Not Indicated
[2021-05-29 09:07] LABS: VBG Base Excess 5.7 mmol/L; VBG HCO3 32 mmol/L (22-26); VBG pCO2 55 mmHg; VBG pH 7.37 (7.32-7.43); VBG pO2 32 mmHg
--- NOTE | 2021-05-29 10:16 | HO.PM.IMPN ---
Subjective Subjective Date of Service: 05/29/21 Review of Systems Follow up tracheostomy Feeling ok today no pain writing down words, initially unable to tolerate the Passy Jacinto valve Physical Exam Vital Signs: Vital Signs: Last Vital Signs Temp 98.6 F 05/29/21 07:32 Pulse 88 05/29/21 08:16 Resp 18 05/29/21 08:16 BP 140/68 H 05/29/21 07:32 Pulse Ox 91 L 05/29/21 07:32 BMI result Body Mass Index 28.5 Appearing in no acute distress lung sounds are clear to auscultation, trach with trach mask present heart regular rate rhythm, clear S1, S2 positive bowel sounds, abdomen is soft, nontender neuro patient is alert x3, no focal deficits Objective Data Active Medications Albuterol Sulfate (Albuterol Sulfate (0.083%) 2.5 Mg/3 Ml Vial.Neb) 2.5 mg INHALE RQ4H PRN PRN Reason: Shortness of Breath Last Admin: 05/27/21 11:28 Dose: 2.5 mg Documented by: DRAKE Albuterol Sulfate (Albuterol Sulfate 90 Mcg 8 Gm Inhaler) 2 puff INHALE RQ6H PRN PRN Reason: wheezing or sob Albuterol/Ipratropium (Albuterol/Iprat 2.5/0.5mg 3 Ml Ampul.Neb) 3 ml INHALE RQ6H WHILE AWAKE [facility] Last Admin: 05/29/21 08:13 Dose: 3 ml Documented by: ULRICPipo Hydromorphone HCl (Hydromorphone Hcl 0.5 Mg/0.5 Ml Syringe) 0.5 mg IVPUSH Q1H PRN; Protocol PRN Reason: mild pain Last Admin: 05/29/21 06:43 Dose: 0.5 mg Documented by: TUMASY Dextrose/Lactated Ringer's (D5lr) 1,000 mls @ 50 mls/hr IVCONT .Q20H [facility] Last Admin: 05/29/21 08:08 Dose: 50 mls/hr Documented by: DABA Ondansetron HCl (Ondansetron Hcl 4 Mg/2 Ml Vial) 4 mg IVPUSH ONCE PRN PRN Reason: Nausea and Vomiting Pantoprazole Sodium (Pantoprazole Sodium 40 Mg/10 Ml Vial) 40 mg IVPUSH DAILY@0630 [facility] Last Admin: 05/29/21 06:04 Dose: 40 mg Documented by: KELLEY Labs CBC & Chem 7: 05/29/21 05:19 05/29/21 05:19 Labs: Laboratory Results - last 24 hr 05/28/21 05/29/21 05/29/21 14:16 05:19 05:19 MCV 99.5 H MCH 32.2 MCHC 32.4 RDW 13.1 Plt Count 221 MPV 10.5 Absolute Nucleated RBC 0.000 Nucleated RBC % (auto) 0.0 VBG pH 7.37 VBG pCO2 55 VBG pO2 32 VBG HCO3 32 H VBG O2 Saturation 38.0 VBG Base Excess 5.7 Anion Gap 11 L Estim Creat Clear Calc 74.6 Estimated GFR > 60 Random Glucose 112 Calcium 8.6 Assessment and Plan (1) Acute respiratory failure with hypoxia and hypercarbia: Status: Acute (2) Tracheostomy dependence: Status: Acute Assessment and Plan: ICU course :80-year-old female with coronary disease an episode of Takotsubo? cardiomyopathy that resolved to a normal ejection fraction and an underlying hypertensive and COPD patient who had a tracheostomy 2 and half years ago and since D cannulated and nonhealing stoma brought in electively 2 days ago to have a flap closure done by CT surgery the surgery went successfully extubated doing well at 15-20 minutes later following a did a deep cough she developed severe respiratory distress unable to move air became dense lead cyanotic with subcutaneous air and had a clear-cut acute pneumomediastinum and the no the question of course is whether not the might have been a bleed hematoma but 1 way of the other required emergent reopening of the tracheostomy placement of a 8. Cuffed tube and she was on the ventilator and weaned spent 6 hours yesterday on a a tracheostomy cuff and today as well so currently has the balloon down and is on the tracheostomy cuff with oxygen saturations in the mid 90s respiratory rates in the 20s without any respiratory effort or distress did not have her swallow evaluation and the strict instructions from Cardiothoracic surgery was not to touch the tube until the site heals completely and that is weeks down the line so apparently this is not going to be replaced by a down sized tube at any point so some evaluation in the next 1 or 2 days possibly in conjunction with Dr. Caba is a advice needs to take place as far as the ability to feed and she is refusing a PEG tube ultimately she said she would agree to an NG tube for feeding purposes if need be. Doing well stable under 7 hours of observation on a trach cuff with low FiO2 in the 30% range L flow at about the 7-8 liters/minute no respiratory distress no stridor with the cuff down and this is a 8.? Tracheostomy tube and cardiothoracic surgery will follow at least from a distance but does not want to tube replaced or tampered with at at this point in time swallow evaluation in another day or 2 and that is pending Tracheostomy. # 8 Stable, with trach mask on Speech eval pending CT surgery following CXR today with no pneumomediastinum, goo dtrach placement Hypertension stable blood pressure DISPO Patient does not want to go to [facility] would prefer to return home when medically stable for dc DVT prophylaxis with heparin Attending Dr. Love Full code Quality Stroke Does the patient have a stroke diagnosis?: No VTE Prior VTE?: No VTE Risk Level:: Medical - moderate - high VTE Device Contraindication: N/A - Device Ordered VTE Drug Contraindication: Treatment Not Indicated
--- NOTE | 2021-05-29 14:05 | MHC.CLN ---
F/U PT IS DAY 5 NPO PT WITH INCREASED NUTRITION RISK R/T POOR ORAL FOOD/BEVERAGE INTAKE PENDING SWALLOW EVAL PER ENTEROSTOMAL NURSE; NOTED ENTEROSTOMAL NURSE ATTEMPTED SWALLOW EVAL 05/28 BUT PT WAS UNABLE TO PARTICIPATE IF (NG) TF NEEDED; RECOMMEND JEVITY AT MAX GAOL RATE 55ML/HR WITH 120CC FREE WATER FLUSHES Q 8 HRS TO PROVIDE 1399KCALS (24.5KCALS/KG), 58G PROTEIN (1.0G/KG), 1462ML TOTAL WATER FROM FORMULA AND FLUSHES (26ML/KG) START FORMULA JEVITY 1.0 AT 20ML AND INCREASE BY 10ML Q 4 HRS UNTIL MAX GOAL ACHIEVED MONITOR TOLERANCE, RESIDUALS AND LYTES
--- NOTE | 2021-05-29 16:32 | MHC.SL.SWA ---
Speech Pathologist Impression: Risk of Aspiration Risk of Aspiration Due to: Tracheostomy Dysphasia Diet Status: No Change Liquid Consistency and Strategies for Safe Swallow: Liquid Intake Recommendation: NPO Solid Food Consistency: Dietary Recommendations: NPO Oral Medication Intake: NPO Recommend continue NPO at this time. Permit small amount of pureed food, by request only WITH STRICT SUPERVISION and MONITORING BY COLLISION MECHANIC LIVING SUPERVISOR, strict aspiration precautions, and close monitoring for any overt s/s of aspiration. If patient displays any s/s of aspiration, or increased need for suctioning, recommend withhold PO. Continue rigorous oral care routine, at least 4 times daily. COLLISION MECHANIC will re-evaluate tomorrow morning. Supervision While Eating and Drinking for Safe Swallow: PO with COLLISION MECHANIC Swallowing Recommended Treatments: Compens. Strategy Educat. Recommendation for Speech: Re-evaluate tomorrow morning Electron Gun Inspector Clinican/Clinical Fellow: No Supervisory Statement: I have reviewed and agree with the student/clinical fellow's documentation: N/A Speech Language Pathologist: Amarilys Mathis M.A., CCC-COLLISION MECHANIC
--- NOTE | 2021-05-29 16:58 | MHC.SL.SWA ---
Speech Pathologist Impression: Risk of Aspiration Risk of Aspiration Due to: Tracheostomy Dysphasia Diet Status: No Change Liquid Consistency and Strategies for Safe Swallow: Liquid Intake Recommendation: NPO Liquid Intake Strategies: Solid Food Consistency: Dietary Recommendations: NPO Additional Modifications to Solid Foods: Oral Medication Intake: NPO Patient tolerated small amount of pudding with no overt s/s of aspiration. She suctioned herself after trials of liquids- small amount thin, clear secretion. Recommend continue NPO at this time. Continue rigorous oral care routine, at least 4 times daily. FORK LIFT MECHANIC will return tomorrow morning PO trials pureed consistency/ trial tolerance of Passy Hancock. Supervision While Eating and Drinking for Safe Swallow: PO with FORK LIFT MECHANIC Swallowing Recommended Treatments: Compens. Strategy Educat. Recommendation for Speech: Re-evaluate tomorrow morning Communications Analyst Clinican/Clinical Fellow: No Supervisory Statement: I have reviewed and agree with the student/clinical fellow's documentation: N/A Speech Language Pathologist: Amarilys Mathis M.A., CCC-FORK LIFT MECHANIC
[2021-05-30] VITALS (13 sets, daily range): BP systolic 117–138; BP diastolic 56–65; PULSE 86–105; RESP 16–20; TEMP 36.2–37.1; O2SAT 93–99
[2021-05-30] MEDS: Dextrose 5 % and Lactated Ring 1,000 ML 50 ML IVCONT ×2 (02:38→22:42)
[2021-05-30] MEDS: HYDROmorphone HCl 0.5 MG/0.5 ML SYRINGE IVPUSH ×7 (02:42→23:27)
[2021-05-30] MEDS: Albuterol Sulfate (0.083%) 2.5 MG/3 ML VIAL.NEB INHALE (02:54)
[2021-05-30 05:44] LABS: Hematocrit 41.3 % (37.0-47.0); Mean Corpuscular HGB Conc 31.5 g/dl (31.0-35.0); Mean Corpuscular Hemoglobin 31.2 pg (27.0-33.0); Mean Platelet Volume 9.9 fL (9.4-12.3); Platelet Count 230 X10*3/uL (160-400); Red Blood Count 4.17 X10*6/uL (4.20-5.50); Red Cell Distribution Width 12.8 % (11.0-16.0); White Blood Count 9.2 X10*3/uL (4.8-10.8)
[2021-05-30] MEDS: Pantoprazole Sodium 40 MG/10 ML VIAL IVPUSH (05:58)
[2021-05-30 06:05] LABS: Anion Gap 8 (12-20); Blood Urea Nitrogen 8 mg/dL (9-16); Calcium 8.6 mg/dL (8.4-10.2); Carbon Dioxide 34 mmol/L (22-29); Chloride 100 mmol/L (96-108); Creatinine Clr Calc Pharmacy 65.1; Estimated Glomerular Filt Rate > 60; Glucose Random 111 mg/dL (60-115); Potassium 3.3 mmol/L (3.3-5.1); Sodium 139 mmol/L (135-145)
[2021-05-30] MEDS: Albuterol/Iprat 2.5/0.5MG 3 ML AMPUL.NEB INHALE ×3 (09:06→20:00)
--- NOTE | 2021-05-30 10:14 | HO.PM.IMPN ---
Subjective Subjective Date of Service: 05/30/21 Review of Systems Follow up tracheostomy Feeling ok today no pain writing down words,?unable to tolerate the Passy Jacinto valve yet Physical Exam Vital Signs: Vital Signs: Last Vital Signs Temp 98.1 F 05/30/21 07:23 Pulse 92 05/30/21 09:07 Resp 20 05/30/21 09:07 BP 117/56 L 05/30/21 07:23 Pulse Ox 94 05/30/21 07:23 BMI result Body Mass Index 28.5 Appearing in no acute distress lung sounds are clear to auscultation, tach with mask present heart regular rate rhythm, clear S1, S2 positive bowel sounds, abdomen is soft, nontender neuro patient is alert x3, no focal deficits Objective Data Active Medications Albuterol Sulfate (Albuterol Sulfate (0.083%) 2.5 Mg/3 Ml Vial.Neb) 2.5 mg INHALE RQ4H PRN PRN Reason: Shortness of Breath Last Admin: 05/30/21 02:54 Dose: 2.5 mg Documented by: LEO Albuterol Sulfate (Albuterol Sulfate 90 Mcg 8 Gm Inhaler) 2 puff INHALE RQ6H PRN PRN Reason: wheezing or sob Albuterol/Ipratropium (Albuterol/Iprat 2.5/0.5mg 3 Ml Ampul.Neb) 3 ml INHALE RQ6H WHILE AWAKE [facility] Last Admin: 05/30/21 09:06 Dose: 3 ml Documented by: TYESHA Hydromorphone HCl (Hydromorphone Hcl 0.5 Mg/0.5 Ml Syringe) 0.5 mg IVPUSH Q1H PRN; Protocol PRN Reason: mild pain Last Admin: 05/30/21 09:29 Dose: 0.5 mg Documented by: MUSA Dextrose/Lactated Ringer's (D5lr) 1,000 mls @ 50 mls/hr IVCONT .Q20H [facility] Last Admin: 05/30/21 02:38 Dose: 50 mls/hr Documented by: AUNG Ondansetron HCl (Ondansetron Hcl 4 Mg/2 Ml Vial) 4 mg IVPUSH ONCE PRN PRN Reason: Nausea and Vomiting Pantoprazole Sodium (Pantoprazole Sodium 40 Mg/10 Ml Vial) 40 mg IVPUSH DAILY@0630 [facility] Last Admin: 05/30/21 05:58 Dose: 40 mg Documented by: AUNG Labs CBC & Chem 7: 05/30/21 05:29 05/30/21 05:29 Labs: Laboratory Results - last 24 hr 05/30/21 05/30/21 05:29 05:29 MCV 99.0 H MCH 31.2 MCHC 31.5 RDW 12.8 Plt Count 230 MPV 9.9 Absolute Nucleated RBC 0.000 Nucleated RBC % (auto) 0.0 Anion Gap 8 L Estim Creat Clear Calc 65.1 Estimated GFR > 60 Random Glucose 111 Calcium 8.6 Assessment and Plan (1) Tracheostomy dependence: Status: Acute Assessment and Plan: ICU course :80-year-old female with coronary disease an episode of Takotsubo? cardiomyopathy that resolved to a normal ejection fraction and an underlying hypertensive and COPD patient who had a tracheostomy 2 and half years ago and since D cannulated and nonhealing stoma brought in electively 2 days ago to have a flap closure done by CT surgery the surgery went successfully extubated doing well at 15-20 minutes later following a did a deep cough she developed severe respiratory distress unable to move air became dense lead cyanotic with subcutaneous air and had a clear-cut acute pneumomediastinum and the no the question of course is whether not the might have been a bleed hematoma but 1 way of the other required emergent reopening of the tracheostomy placement of a 8. Cuffed tube and she was on the ventilator and weaned spent 6 hours yesterday on a a tracheostomy cuff and today as well so currently has the balloon down and is on the tracheostomy cuff with oxygen saturations in the mid 90s respiratory rates in the 20s without any respiratory effort or distress did not have her swallow evaluation and the strict instructions from Cardiothoracic surgery was not to touch the tube until the site heals completely and that is weeks down the line so apparently this is not going to be replaced by a down sized tube at any point so some evaluation in the next 1 or 2 days possibly in conjunction with Dr. Caba is a advice needs to take place as far as the ability to feed and she is refusing a PEG tube ultimately she said she would agree to an NG tube for feeding purposes if need be. Doing well stable under 7 hours of observation on a trach cuff with low FiO2 in the 30% range L flow at about the 7-8 liters/minute no respiratory distress no stridor with the cuff down and this is a 8.? Tracheostomy tube and cardiothoracic surgery will follow at least from a distance but does not want to tube replaced or tampered with at at this point in time swallow evaluation in another day or 2 and that is pending Tracheostomy. # 8 Stable, with trach mask on Speech eval pending, still NPO CT surgery following CXR today with no pneumomediastinum, good trach placement Hypertension stable blood pressure DISPO Patient does not want to go to [facility] would prefer to return home when medically stable for dc DVT prophylaxis with heparin Attending Dr. Love Full code Quality Stroke Does the patient have a stroke diagnosis?: No VTE Prior VTE?: No VTE Risk Level:: Medical - moderate - high VTE Device Contraindication: N/A - Device Ordered VTE Drug Contraindication: Treatment Not Indicated
--- NOTE | 2021-05-30 13:48 | MHC.CM.PN ---
Addendum entered by Angie Bruce 05/30/21 14:07: failed passy-valve trial yesterday, speech eval today if eval does nto go well may need ng tube insertion for nutrition per chart documentaiton Original Note: NURSE PEDIATRIC PATHOLOGIST NTOE ELECTRONIC MEDICAL RECORD REVIEWED , [facility] , PER DOUCMENTATION IN RECORD :(HX OF BRONCHOSCOPY AND CLOSURE OF TRACHEAL STIOMA WITH STRAP FLAPS BY DR BENITEZ 05/25/21, PRAMOD BOWEN DEVELOPED SQ EMPHYSEMA, PSEUDOMIASTINUM AND RESP DISTRESS WITH EMERGENT PERCURTNEOUS TRACHEOSTOMY DOWN GRADE TO MEDURGICAL UNIT ON TELEMETRY. TOLERATING TRACH O2 MASK DISCHARGE PLAN- PATIENT WANTS TO GO HOME WITH [facility] FOR NRUSING AND HOME PT NEW TRACHEOSTOMY, HAD ONE IN PAST AND HAS SOME SUPPLIES AT HOME FROM [facility] , WILL NEED TO HAVE RESPIRATORY CHECK INTO WHAT SHE WILL NEED FOR DISCHARGE NEEDS NEW TRACH SIZE SUPPLIES, DOES SHE HAVE SUCTION MACHING AT HOME , ?OXYGEN AT HOME ) SPEECH EVALUATION TODAY MART POSSIBLY TRY CLEAR LIQUIDS MET WITH HPQTIENT SHE DID NOT WANT TO DICUSEE STR AND QANTS TO [facility] HOME WITH [facility] AND HOME PT AND RESUMTPION OF HER [facility] DME TRANSPORTATION TO BE FURTHER DETERMINED [facility]
--- NOTE | 2021-05-30 13:57 | MHC.SL.SWA ---
Speech Pathologist Impression: Risk of Aspiration Risk of Aspiration Due to: Tracheostomy Dysphasia Diet Status: Upgrade Liquid Consistency and Strategies for Safe Swallow: Liquid Intake Recommendation: Pudding Thick Liquid Intake Strategies: Liquids by Teaspoon Only Solid Food Consistency: Dietary Recommendations: Pureed (NDD1) Additional Modifications to Solid Foods: Recommend upgrade to SINGLE consistency PUREED solids (NDD1)/ PUDDING THICK liquids. Cuff must be deflated for PO intake. Patient is able to feed herself with ease. However, at the very least patient should be SUPERVISED during all PO intake to monitor tolerance. Withhold PO and return to NPO if there are any overt s/s of aspiration or increased need for suctioning after PO intake. Strict aspiration precautions apply. Continue rigorous oral care routine, at least 4 times daily. FLIGHT PARAMEDIC will follow daily. Oral Medication Intake: NPO Compensatory Strategies and Precautions to be Taken for Safe Swallow: Sitting Upright (90 deg) No Straw Liquids from Spoon Small Bites and Sips Rate of Ingestion Change Oral Check Supervision While Eating and Drinking for Safe Swallow: Total Supervision (1:1) Swallowing Recommended Treatments: Compens. Strategy Educat. Recommendation for Speech: FLIGHT PARAMEDIC to follow M-F Informal Waiter/Waitress Clinican/Clinical Fellow: No Supervisory Statement: I have reviewed and agree with the student/clinical fellow's documentation: N/A Speech Language Pathologist: Amarilys Mathis M.A., [facility]-FLIGHT PARAMEDIC
--- NOTE | 2021-05-30 14:04 | MHC.CLN ---
F/U PT IS DAY 6 NPO. SEEN BY PHOTOGRAPHIC ARTIST WITH RECOMMENDED DIET PUREE WITH PUDDING THICK LIQUIDS. SUPERVISION AT MEALS. PT WITH INCREASED NUTRITION RISK DUE TO POOR ORAL INTAKE. PHOTOGRAPHIC ARTIST FOLLOWING PATIENT. CONTINUE TO MONITOR FOR DIET TOLERANCE, DIET ADVANCEMENT, AND INTAKE.
--- NOTE | 2021-05-30 15:48 | PM.PNTS ---
Subjective Subjective Date of Service: 05/30/21 Interval history: Patient was seen and examined this morning. This is a late entry from that examination. During my examination with the patient she was being seen by speech pathology for swallow study. Even though patient was unable to tolerate a Passy-Jacinto valve she was able to be upgraded to single consistency pur?ed solids/pudding thick liquids. Her cuff must remain to be deflated during p.o. intake and her p.o. intake must be supervised during the initial couple of days to monitor tolerance. Patient continues to deny any shortness of breath and states that she is able to suction her own tracheostomy with ease and obtains thin white sputum. Physical Exam Vital Signs: Vital Signs: Last Vital Signs Temp 98.7 F 05/30/21 15:14 Pulse 96 05/30/21 15:14 Resp 19 05/30/21 15:14 BP 138/65 05/30/21 15:14 Pulse Ox 94 05/30/21 15:14 BMI result Body Mass Index 28.5 Const: General: cooperative, healthy appearing, comfortable and no acute distress Nutritional Appearance: well nourished Orientation/consciousness: oriented to person, oriented to place, oriented to time and patient oriented x3 Limitations: no limitations HENMT: Head: Yes normal to inspection, Yes normocephalic and Yes atraumatic Mouth: Normal oral and palatal mucosa present Eyes: Visual Chiu: normal visual chiu by confrontation Alignment and Position: alignment normal Periorbital: periorbital findings normal Conjunctivae: conjunctivae normal Sclerae: sclerae normal Pupils: Equal, round and reactive pupils present and Pupil accommodation reflex normal EOM: EOMs intact bilaterally Neck: Neck: Yes normal visual inspection, Yes full ROM, Yes no lymphadenopathy, Yes trachea midline, Yes supple, No lymphadenopathy, No tender and No tracheal deviation Lymphatic: no lymphadenopathy noted Chest: Chest palpation & inspection: normal inspection of the chest and no crepitus Resp: Other: Patient breathing comfortably. Trached, currently on trach mask. Scattered rhonchi throughout. Anterior chest SQ air noted. Extension to right neck and cheek noted. No extension to arms. Effort & Inspection: normal respiratory effort, able to speak in complete sentences, normal respiratory pattern, no audible wheezes, no cough, no pursed lip breathing, no respiratory distress, no stridor, not tachypneic and no tracheal deviation Auscultation: clear to auscultation bilaterally Cardio: Jugular venous distension: no JVD Palpation: normal PMI Rate: regular rate Rhythm: regular rhythm Heart sounds: S1 normal heart sound present, S2 normal heart sound present, no click, no gallops, no murmurs and no rubs GI: Inspection: Yes normal to inspection Auscultation: normal bowel sounds : General: Yes no CVA tenderness Back/Spine/Pelvis: Back: no CVA tenderness Thoracic/Lumbar Spine: thoracic and lumbar spine normal to inspection Skin: General skin exam: no rashes or lesions noted and dry skin Lesions: no lesions Rashes: no rashes Neuro: General: oriented to person, oriented to place, oriented to time, patient oriented x3 and gait normal Cranial nerves: Yes Equal, round and reactive pupils present Extrem: General: Yes normal to inspection, Yes full ROM, Yes capillary refill normal, Yes no clubbing, cyanosis or edema, Yes no pedal edema and Yes normal gait Psych: Appearance: grossly normal and well kempt Mental Status: mental status grossly normal Speech and movement: Normal speech and movement present and Clear speech present Affect: normal affect Attitude: cooperative Thought process: Normal thought process present Thought content: Normal thought content present Procedures Date of Service Date of Service: 05/30/21 Progress Note: A&P Assessment and plan (1) Tracheostomy dependence: Status: Acute Assessment and Plan: Ms. Garcia is a pleasant 80 y.o. female who underwent bronchoscopy and closure of tracheal stoma with strap muscle flaps with Dr. Dobson on 05/25/21. While in PACU patient developed SQ emphysema, pneumomediastinum, and respiratory distress and required emergent percutaneous tracheostomy. s/p emergent replacement of tracheostomy. Downgraded from ICU yesterday to telemetry unit. Tolerating trach mask, able to perform self suction and trach care as this is not new to her. Discussed possible trach change from #8 to #6 trach. No plan to do this in the immediate future due to recent placement on 05/25/21. Patient may require replacement in 4-6 weeks to a smaller tracheostomy tube. PT eval placed DVT prophylaxis: Intermittent pneumatic compression stockings Nutrition: Speech eval pending today. Failed passy-jacinto valve trial today. speech eval cleared pt for pureed solids/pudding thick liquids with cuff deflated and to be supervised while eating to monitor tolerance. Case discussed with Dr. Dobson. Please call with any questions or concerns. Fall Risk Details Current Medications: Current Medications Albuterol Sulfate (Albuterol Sulfate (0.083%) 2.5 Mg/3 Ml Vial.Neb) 2.5 mg INHALE RQ4H PRN PRN Reason: Shortness of Breath Last Admin: 05/30/21 02:54 Dose: 2.5 mg Documented by: Albuterol Sulfate (Albuterol Sulfate 90 Mcg 8 Gm Inhaler) 2 puff INHALE RQ6H PRN PRN Reason: wheezing or sob Albuterol/Ipratropium (Albuterol/Iprat 2.5/0.5mg 3 Ml Ampul.Neb) 3 ml INHALE RQ6H WHILE [facility]WAKE [facility] Last Admin: 05/30/21 14:24 Dose: 3 ml Documented by: Hydromorphone HCl (Hydromorphone Hcl 0.5 Mg/0.5 Ml Syringe) 0.5 mg IVPUSH Q1H PRN; Protocol PRN Reason: mild pain Last Admin: 05/30/21 12:16 Dose: 0.5 mg Documented by: Dextrose/Lactated Ringer's (D5lr) 1,000 mls @ 50 mls/hr IVCONT .Q20H [facility] Last Admin: 05/30/21 02:38 Dose: 50 mls/hr Documented by: Ondansetron HCl (Ondansetron Hcl 4 Mg/2 Ml Vial) 4 mg IVPUSH ONCE PRN PRN Reason: Nausea and Vomiting Time Spent With Patient Time: Total time spent is greater than 50% in coordination of care (as documented) at patient's floor/unit and/or counseling patient: Time with patient: 15 - 24 minutes Quality Stroke Does the patient have a stroke diagnosis?: No VTE Prior VTE?: No VTE Risk Level:: Medical - moderate - high VTE Device Contraindication: N/A - Device Ordered VTE Drug Contraindication: Treatment Not Indicated
[2021-05-31] VITALS (9 sets, daily range): BP systolic 112–130; BP diastolic 56–60; PULSE 83–97; RESP 16–20; TEMP 36.4–36.9; O2SAT 91–97
[2021-05-31] MEDS: HYDROmorphone HCl 0.5 MG/0.5 ML SYRINGE IVPUSH ×2 (02:46→04:00)
[2021-05-31 06:18] LABS: Hematocrit 40.9 % (37.0-47.0); Hemoglobin 12.8 g/dl (12.0-16.0); Mean Corpuscular HGB Conc 31.3 g/dl (31.0-35.0); Mean Corpuscular Hemoglobin 31.2 pg (27.0-33.0); Mean Corpuscular Volume 99.8 fL (80.0-98.0); Mean Platelet Volume 10.4 fL (9.4-12.3); Platelet Count 250 X10*3/uL (160-400); Red Cell Distribution Width 12.7 % (11.0-16.0); White Blood Count 10.2 X10*3/uL (4.8-10.8)
[2021-05-31 06:52] LABS: Anion Gap 12 (12-20); Blood Urea Nitrogen 7 mg/dL (9-16); Calcium 8.8 mg/dL (8.4-10.2); Carbon Dioxide 31 mmol/L (22-29); Chloride 101 mmol/L (96-108); Estimated Glomerular Filt Rate > 60; Glucose Random 121 mg/dL (60-115); Potassium 4.1 mmol/L (3.3-5.1); Sodium 140 mmol/L (135-145)
--- NOTE | 2021-05-31 08:20 | P.PNTS_ITS ---
Subjective Subjective Date of Service: 06/05/21 Interval history: Patient seen this am. States she is tolerating pureed solid food and pudding thick liquids without difficulty. She continues to perform self-trach care. This am, patient anxious and requesting respiratory therapy for breathing treatment. Attempted to self-suction but this was not helping her at this time. Denies any other complaints at this time. Physical Exam Vital Signs: Vital Signs: Last Vital Signs Temp 98.4 F 05/31/21 07:43 Pulse 83 05/31/21 07:43 Resp 20 05/31/21 07:43 BP 128/60 05/31/21 07:43 Pulse Ox 92 05/31/21 07:43 BMI result Body Mass Index 28.5 Const: Other: Able to communicate with mouthing words or writing things down. General: cooperative, healthy appearing and comfortable Nutritional Appearance: well nourished Orientation/consciousness: oriented to person, oriented to place, oriented to time and patient oriented x3 Limitations: No language barrier HENMT: Head: Yes normal to inspection, Yes normocephalic and Yes atraumatic Mouth: Normal oral and palatal mucosa present Eyes: Visual Chiu: normal visual chiu by confrontation Alignment and Position: alignment normal Periorbital: periorbital findings normal Conjunctivae: conjunctivae normal Sclerae: sclerae normal Pupils: Equal, round and reactive pupils present and Pupil accommodation reflex normal EOM: EOMs intact bilaterally Neck: Other: Trach in place, trach site clean, no bleeding,, no trach leak, packing in place Neck: Yes normal visual inspection, Yes full ROM, Yes no lymphadenopathy, Yes trachea midline, Yes supple, No lymphadenopathy, No tender and No tracheal deviation Lymphatic: no lymphadenopathy noted Chest: Chest palpation & inspection: normal inspection of the chest and no crepitus Resp: Other: Patient breathing comfortably. Trached, currently on trach mask. Exp wheezes bilaterally. Anterior chest SQ air noted with no extension to neck. Effort & Inspection: normal respiratory effort, able to speak in complete sentences, normal respiratory pattern, no audible wheezes, no cough, no pursed lip breathing, no respiratory distress, no stridor, not tachypneic and no tracheal deviation Auscultation: wheezes Cardio: Jugular venous distension: no JVD Palpation: normal PMI Rate: regular rate Rhythm: regular rhythm Heart sounds: S1 normal heart sound present, S2 normal heart sound present, no click, no gallops, no murmurs and no rubs GI: Inspection: Yes normal to inspection Auscultation: normal bowel sounds : General: Yes no CVA tenderness Back/Spine/Pelvis: Back: no CVA tenderness Thoracic/Lumbar Spine: thoracic and lumbar spine normal to inspection Skin: General skin exam: no rashes or lesions noted and dry skin Lesions: no lesions Rashes: no rashes Neuro: General: oriented to person, oriented to place, oriented to time, patient oriented x3 and gait normal Cranial nerves: Yes Equal, round and reactive pupils present Extrem: General: Yes normal to inspection, Yes full ROM, Yes capillary refill normal, Yes no clubbing, cyanosis or edema, Yes no pedal edema and Yes normal gait Psych: Appearance: grossly normal and well kempt Mental Status: mental status grossly normal Speech and movement: Normal speech and movement present and Clear speech present Affect: normal affect Attitude: cooperative Thought process: Normal thought process present Thought content: Normal thought content present Procedures Date of Service Date of Service: 05/31/21 Progress Note: A&P Assessment and plan (1) Tracheostomy dependence: Status: Acute Assessment and Plan: Ms. Garcia is a pleasant 80 y.o. female who underwent bronchoscopy and closure of tracheal stoma with strap muscle flaps with Dr. Dobson on 05/25/21. While in PACU patient developed SQ emphysema, pneumomediastinum, and respiratory distress and required emergent percutaneous tracheostomy. * s/p emergent replacement of tracheostomy on 05/25/21 following stoma closure * Now on telemetry on trach mask * Continue with nebs, trach care, humidified oxygenation * Nutrition: Per speech therapy recs, patient started on pureed solid food with pudding thick liquids. Cuff must be deflated for PO intake. Patient may feed herself but should be SUPERVISED during all PO intake to monitor tolerance. Withold PO and return to NPO if there are any overt s/s of aspiration or patient is requiring increased suctioning following her PO intake. Speech will continue to follow along daily * STRICT ASPRATION PRECAUTIONS * Oral care * PT following * DVT prophylaxis: Intermittent pneumatic compression stockings * Patient will need to follow-up with Pulmonary for trach management Case discussed with Dr. Dobson. Please call with any questions or concerns. Fall Risk Details Current Medications: Current Medications Albuterol Sulfate (Albuterol Sulfate (0.083%) 2.5 Mg/3 Ml Vial.Neb) 2.5 mg INHALE RQ4H PRN PRN Reason: Shortness of Breath Last Admin: 05/30/21 02:54 Dose: 2.5 mg Documented by: Albuterol Sulfate (Albuterol Sulfate 90 Mcg 8 Gm Inhaler) 2 puff INHALE RQ6H PRN PRN Reason: wheezing or sob Albuterol/Ipratropium (Albuterol/Iprat 2.5/0.5mg 3 Ml Ampul.Neb) 3 ml INHALE RQ6H WHILE AWAKE [facility] Last Admin: 05/30/21 20:00 Dose: 3 ml Documented by: Hydromorphone HCl (Hydromorphone Hcl 1 Mg/Ml Syringe) 0.5 mg IVPUSH Q1H PRN; Protocol PRN Reason: mild pain Dextrose/Lactated Ringer's (D5lr) 1,000 mls @ 50 mls/hr IVCONT .Q20H [facility] Last Admin: 05/30/21 22:42 Dose: 50 mls/hr Documented by: Ondansetron HCl (Ondansetron Hcl 4 Mg/2 Ml Vial) 4 mg IVPUSH ONCE PRN PRN Reason: Nausea and Vomiting Time Spent With Patient Time: Total time spent is greater than 50% in coordination of care (as documented) at patient's floor/unit and/or counseling patient: Time with patient: less than 15 minutes Quality Stroke Does the patient have a stroke diagnosis?: No VTE Prior VTE?: No VTE Risk Level:: Medical - moderate - high VTE Device Contraindication: N/A - Device Ordered VTE Drug Contraindication: Treatment Not Indicated
[2021-05-31] MEDS: Albuterol/Iprat 2.5/0.5MG 3 ML AMPUL.NEB INHALE ×4 (08:33→21:26)
[2021-05-31] MEDS: HYDROmorphone HCl 1 MG/ML SYRINGE 0.5 MG IVPUSH ×3 (10:43→23:17)
--- NOTE | 2021-05-31 14:21 | HO.PM.IMPN ---
Subjective Subjective Date of Service: 05/31/21 Interval History: seen and examined this morning follow up for respiratory distress requiring emergent tracheostomy Feeling somewhat short of breath this morning, Requesting a breathing treatment. Tolerating pureed diet Review of Systems Review of Systems: Yes all other systems are reviewed and are negative Constitutional Constitutional: Denies chills and Denies fever(s) Cardiovascular Cardiovascular: Denies chest pain Gastrointestinal Gastrointestinal: Denies abdominal pain Physical Exam Vital Signs: Vital Signs: Last Vital Signs Temp 98.0 F 05/31/21 12:00 Pulse 88 05/31/21 12:00 Resp 19 05/31/21 12:00 BP 130/60 05/31/21 12:00 Pulse Ox 92 05/31/21 12:00 BMI result Body Mass Index 28.5 Const: General: comfortable, alert and awake Nutritional Appearance: well nourished HENMT: Head: Yes normocephalic and Yes atraumatic Resp: Other: trach with mask scattered wheezing Effort & Inspection: normal respiratory effort and no respiratory distress Cardio: Rate: regular rate Rhythm: regular rhythm GI: Palpation (GI): Soft to palpation and nontender Neuro: Cranial nerves: Yes CN's II-XII intact bilaterally and Yes Bilaterally intact EOM present Objective Data Active Medications Albuterol Sulfate (Albuterol Sulfate (0.083%) 2.5 Mg/3 Ml Vial.Neb) 2.5 mg INHALE RQ4H PRN PRN Reason: Shortness of Breath Last Admin: 05/30/21 02:54 Dose: 2.5 mg Documented by: LEO Albuterol Sulfate (Albuterol Sulfate 90 Mcg 8 Gm Inhaler) 2 puff INHALE RQ6H PRN PRN Reason: wheezing or sob Albuterol/Ipratropium (Albuterol/Iprat 2.5/0.5mg 3 Ml Ampul.Neb) 3 ml INHALE QID [facility] Last Admin: 05/31/21 12:20 Dose: 3 ml Documented by: MUSA Hydromorphone HCl (Hydromorphone Hcl 1 Mg/Ml Syringe) 0.5 mg IVPUSH Q1H PRN; Protocol PRN Reason: mild pain Last Admin: 05/31/21 10:43 Dose: 0.5 mg Documented by: MUSA Ondansetron HCl (Ondansetron Hcl 4 Mg/2 Ml Vial) 4 mg IVPUSH ONCE PRN PRN Reason: Nausea and Vomiting Labs CBC & Chem 7: 05/31/21 05:39 05/31/21 05:39 Labs: Laboratory Results - last 24 hr 05/31/21 05/31/21 05:39 05:39 MCV 99.8 H MCH 31.2 MCHC 31.3 RDW 12.7 Plt Count 250 MPV 10.4 Absolute Nucleated RBC 0.000 Nucleated RBC % (auto) 0.0 Anion Gap 12 Estim Creat Clear Calc 72.0 Estimated GFR > 60 Random Glucose 121 H Calcium 8.8 Assessment and Plan (1) Tracheostomy dependence: Status: Acute Assessment and Plan: ICU course :80-year-old female with coronary disease an episode of Takotsubo? cardiomyopathy that resolved to a normal ejection fraction and an underlying hypertensive and COPD patient who had a tracheostomy 2 and half years ago and since D cannulated and nonhealing stoma brought in electively 2 days ago to have a flap closure done by CT surgery the surgery went successfully extubated doing well at 15-20 minutes later following a did a deep cough she developed severe respiratory distress unable to move air became dense lead cyanotic with subcutaneous air and had a clear-cut acute pneumomediastinum and the no the question of course is whether not the might have been a bleed hematoma but 1 way of the other required emergent reopening of the tracheostomy placement of a 8. Cuffed tube and she was on the ventilator and weaned spent 6 hours yesterday on a a tracheostomy cuff and today as well so currently has the balloon down and is on the tracheostomy cuff with oxygen saturations in the mid 90s respiratory rates in the 20s without any respiratory effort or distress did not have her swallow evaluation and the strict instructions from Cardiothoracic surgery was not to touch the tube until the site heals completely and that is weeks down the line so apparently this is not going to be replaced by a down sized tube at any point so some evaluation in the next 1 or 2 days possibly in conjunction with Dr. Caba is a advice needs to take place as far as the ability to feed and she is refusing a PEG tube ultimately she said she would agree to an NG tube for feeding purposes if need be. Doing well stable under 7 hours of observation on a trach cuff with low FiO2 in the 30% range L flow at about the 7-8 liters/minute no respiratory distress no stridor with the cuff down and this is a 8.? Tracheostomy tube and cardiothoracic surgery will follow at least from a distance but does not want to tube replaced or tampered with at at this point in time s/p emergent Tracheostomy 05/25 due to progressive hypoxia following tracheal closure Stable, with trach mask on speech following, tolerating pureed diet with strict aspiration precautions CT surgery following COPD continue home inhalers/breathing treatments Hypertension stable blood pressure DISPO Patient does not want to go to [facility] would prefer to return home when medically stable for dc DVT prophylaxis with heparin Attending Dr. Love Full code Quality Stroke Does the patient have a stroke diagnosis?: No VTE Prior VTE?: No VTE Risk Level:: Medical - moderate - high VTE Device Contraindication: N/A - Device Ordered VTE Drug Contraindication: Treatment Not Indicated
--- NOTE | 2021-05-31 15:33 | MHC.CM.PN ---
PATIENT SOB TODAY. NO PLAN FOR DISCHARGE
[2021-06-01] VITALS (12 sets, daily range): BP systolic 117–142; BP diastolic 56–70; PULSE 85–106; RESP 16–22; TEMP 36.4–37.2; O2SAT 93–9721
[2021-06-01] MEDS: Albuterol Sulfate (0.083%) 2.5 MG/3 ML VIAL.NEB INHALE (02:34)
[2021-06-01] MEDS: HYDROmorphone HCl 1 MG/ML SYRINGE 0.5 MG IVPUSH ×5 (03:18→21:46)
[2021-06-01] MEDS: Albuterol/Iprat 2.5/0.5MG 3 ML AMPUL.NEB INHALE ×4 (07:34→20:46)
[2021-06-01] MEDS: methylPREDNISolone Sod Succ 40 MG/ML VIAL IVPUSH ×2 (09:25→20:32)
--- NOTE | 2021-06-01 09:44 | HO.PM.IMPN ---
Subjective Subjective Date of Service: 06/01/21 Interval History: seen and examined this morning follow up for respiratory failure, urgent tracheostomy having increasing secretions, feeling short of breath; requiring frequent suctioning, frequent breathing treatments Review of Systems Review of Systems: Yes all other systems are reviewed and are negative Constitutional Constitutional: Denies chills and Denies fever(s) Cardiovascular Cardiovascular: Denies chest pain Gastrointestinal Gastrointestinal: Denies abdominal pain Physical Exam Vital Signs: Vital Signs: Last Vital Signs Temp 98.4 F 06/01/21 08:00 Pulse 97 06/01/21 08:00 Resp 18 06/01/21 08:00 BP 126/61 06/01/21 08:00 Pulse Ox 94 06/01/21 08:00 BMI result Body Mass Index 28.5 Const: General: comfortable, alert and awake Nutritional Appearance: well nourished HENMT: Head: Yes normocephalic and Yes atraumatic Resp: Other: trach with mask b/l wheezing appears mildly tachypneic Cardio: Rate: regular rate Rhythm: regular rhythm GI: Palpation (GI): Soft to palpation and nontender Objective Data Active Medications Albuterol Sulfate (Albuterol Sulfate (0.083%) 2.5 Mg/3 Ml Vial.Neb) 2.5 mg INHALE RQ4H PRN PRN Reason: Shortness of Breath Last Admin: 06/01/21 02:34 Dose: 2.5 mg Documented by: MARY ELLEN Albuterol Sulfate (Albuterol Sulfate 90 Mcg 8 Gm Inhaler) 2 puff INHALE RQ6H PRN PRN Reason: wheezing or sob Albuterol/Ipratropium (Albuterol/Iprat 2.5/0.5mg 3 Ml Ampul.Neb) 3 ml INHALE QID [facility] Last Admin: 06/01/21 07:34 Dose: 3 ml Documented by: SOCO Hydromorphone HCl (Hydromorphone Hcl 1 Mg/Ml Syringe) 0.5 mg IVPUSH Q4H PRN; Protocol PRN Reason: Pain, Severe (Pain Scale 7-10) Last Admin: 06/01/21 09:17 Dose: 0.5 mg Documented by: LEANDRO Methylprednisolone Sodium Succinate (Methylprednisolone Sod Succ 40 Mg/Ml Vial) 40 mg IVPUSH Q12H [facility] [place] Last Admin: 06/01/21 09:25 Dose: 40 mg Documented by: LEANDRO Ondansetron HCl (Ondansetron Hcl 4 Mg/2 Ml Vial) 4 mg IVPUSH ONCE PRN PRN Reason: Nausea and Vomiting Labs CBC & Chem 7: 05/31/21 05:39 05/31/21 05:39 Assessment and Plan (1) Acquired pneumomediastinum: Status: Acute (2) Tracheostomy dependence: Status: Acute Assessment and Plan: ICU course :80-year-old female with coronary disease an episode of Takotsubo? cardiomyopathy that resolved to a normal ejection fraction and an underlying hypertensive and COPD patient who had a tracheostomy 2 and half years ago and since D cannulated and nonhealing stoma brought in electively 2 days ago to have a flap closure done by CT surgery the surgery went successfully extubated doing well at 15-20 minutes later following a did a deep cough she developed severe respiratory distress unable to move air became dense lead cyanotic with subcutaneous air and had a clear-cut acute pneumomediastinum and the no the question of course is whether not the might have been a bleed hematoma but 1 way of the other required emergent reopening of the tracheostomy placement of a 8. Cuffed tube and she was on the ventilator and weaned spent 6 hours yesterday on a a tracheostomy cuff and today as well so currently has the balloon down and is on the tracheostomy cuff with oxygen saturations in the mid 90s respiratory rates in the 20s without any respiratory effort or distress did not have her swallow evaluation and the strict instructions from Cardiothoracic surgery was not to touch the tube until the site heals completely and that is weeks down the line so apparently this is not going to be replaced by a down sized tube at any point so some evaluation in the next 1 or 2 days possibly in conjunction with Dr. Caba is a advice needs to take place as far as the ability to feed and she is refusing a PEG tube ultimately she said she would agree to an NG tube for feeding purposes if need be. Doing well stable under 7 hours of observation on a trach cuff with low FiO2 in the 30% range L flow at about the 7-8 liters/minute no respiratory distress no stridor with the cuff down and this is a 8.? Tracheostomy tube and cardiothoracic surgery will follow at least from a distance but does not want to tube replaced or tampered with at at this point in time s/p emergent Tracheostomy 05/25 due to progressive hypoxia following tracheal closure Stable, with trach mask on speech following, tolerating pureed diet with strict aspiration precautions CT surgery following increasing secretions and sob, will obtain CXR and consult pulmonology COPD continue home inhalers/breathing treatments Hypertension stable blood pressure DISPO Patient does not want to go to [facility] would prefer to return home when medically stable for dc DVT prophylaxis with mechanical devices Attending Dr. Love Full code Quality Stroke Does the patient have a stroke diagnosis?: No VTE Prior VTE?: No VTE Risk Level:: Medical - moderate - high VTE Device Contraindication: N/A - Device Ordered VTE Drug Contraindication: Treatment Not Indicated
[2021-06-01] MEDS: levoFLOXacin/D5W 500 MG/100 ML PIGGYBACK 100 MG IV (10:15)
--- NOTE | 2021-06-01 10:34 | MHC.CLN ---
Addendum entered by Cristina Villatoro, LISBETH 06/01/21 15:28: SEEN BY [employer] [facility] 06/01 WITH REC TO HOLD PO UNTIL PATIENT'S RESPIRATORY STATUS IMPROVES. CONSIDER ALTERNATIVE NUTRITION IF UNABLE TO TAKE ADEQUATE PO. RD FOLLOWING FOR INTAKE AND DIET CONSISTENCY. Original Note: F/U DIET ADVANCED 05/30 PER [employer] [facility] RECOMMENDATION: PUREE WITH PUDDING THICK LIQUIDS. SUPERVISION AT MEALS. APPEARS TO BE TOLERATING DIET. PT WITH INCREASED NUTRITION RISK DUE TO POOR ORAL INTAKE WITH EMERGENCY TRACHEOSTOMY. [employer] [facility] FOLLOWING PATIENT. CONTINUE TO MONITOR FOR DIET TOLERANCE, DIET ADVANCEMENT, AND INTAKE.
[2021-06-01] MEDS: Doxycycline Hyclate 100 MG in 0.9 % Sodium Chloride 250 ML 166.67 MG IV ×2 (11:20→21:46)
--- NOTE | 2021-06-01 13:00 | PM.CNPUL ---
History of Present Illness History of Present Illness Consult date: 06/01/21 Chief complaint: Airway obstruction with respiratory failure Narrative: This is an inpatient consultation. 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 The stoma, however, remained open after more than a year.? The patient had a productive cough that she felt was hindering the healing of that area.? She presented today for closure of the tracheostomy stoma. For The intraop course was notable for inability to pass 6.5 ETT after induction of anesthesia.? A 6.0 tube was used.? Postop the patient was extubated without incident and arrived in PACU breathing easy w Sat 100% on 6L FM.? Subsequently developed resp distress and SQ emphysema.? Attempt at reintubation failed and the patient underwent tracheostomy in the PACU.? Subseq admitted to ICU.? The patient required initial electro mechanical technician ventilation but then was able to wean off. Currently she is on the floor. She started developing increasing cough congested with purulent secretions. She also has pain at the site of the tracheostomy. The patient has been requiring frequent suctioning therefore pulmonary is consulted. She does have DIC [place] cuffed tracheostomy in place. She cannot tolerate any occlusion of the trach with increased air pressure. Apparently the patient may have developed some degree of tracheal stenosis currently on Solu-Medrol. In Review of Systems Constitutional: Constitutional: Denies night sweats ENT: Denies change in voice, Denies lip swelling, Denies mouth pain, Reports nasal congestion, Reports nasal discharge, Reports sore throat, Reports throat swelling and Denies tongue swelling Cardiovascular: Cardiovascular: Denies chest pain Respiratory: Respiratory: Reports change in phlegm color, Reports chest congestion, Reports cough, Denies hemoptysis and Reports excessive phlegm production Gastrointestinal: Gastrointestinal: Denies abdominal pain Musculoskeletal: Musculoskeletal: Denies no additional musculoskeletal complaints Neurologic: Denies Neuro-related abnormal movements Psychiatric: Psychiatric: Denies no additional psychiatric complaints Hematologic/Lymphatic: Hematologic/Lymphatic: Denies easy bleeding and Denies lymphadenopathy Allergic/Immunologic: Allergic/Immunologic: Denies lip swelling, Reports throat swelling and Denies tongue swelling PMFSH Past Medical History Medical History (Updated 06/01/21 @ 13:06 by Robert Blunt MD) Chronic respiratory failure COPD (chronic obstructive pulmonary disease) Cough Elevated cholesterol Endocrine alopecia GERD (gastroesophageal reflux disease) Insomnia Low back pain Myocardial infarction Takotsubo syndrome Tracheostomy dependence Vocal cord paralysis Surgical History Surgical History Hx of colonoscopy Hx of tonsillectomy Hx of tracheostomy Hx of umbilical hernia repair Social History Social History Household Members: None Housing: Apartment Are you a primary adult daycare coordinator to a significant other at home: No Do you presently have visiting nurse or other home services: Yes Patient Tobacco Use Status: Former Tobacco user Quit Date: 2015 Tobacco use type: Cigarette Years Smoked: 30+ years e-Cigarette/Vaping Use: Never Used Second Hand Smoke Exposure: No Use of substances other than those prescribed or required for medical reasons: No Currently Displaying Signs/Symptoms of Drug Intoxication Withdrawal: No Have you been hit, kicked, punched, or otherwise hurt by someone within the past year? If so, by whom?: No Do you feel safe in your current relationship?: No Current Relationship Is there a partner from a previous relationship who is making you feel unsafe now?: No Are you made to feel afraid or neglected: No Are you DNR?: No Advance Directives: No Advance Directives Information Provided: Yes Advance Directives on File: No Do you have thoughts of harming others: None Do you have a plan to hurt others: No Plan Recently lost weight without trying: No Nutrition Risks: No Nutritional Risk Patient : No : No Poor oral hygiene: No Meds Allergies Allergy/AdvReac Type Severity Reaction Status Date / Time codeine Allergy Severe rash/itchin Verified 05/17/21 10:05 g Active Medications: Current Medications Albuterol Sulfate (Albuterol Sulfate (0.083%) 2.5 Mg/3 Ml Vial.Neb) 2.5 mg INHALE RQ4H PRN PRN Reason: Shortness of Breath Last Admin: 06/01/21 02:34 Dose: 2.5 mg Documented by: Albuterol Sulfate (Albuterol Sulfate 90 Mcg 8 Gm Inhaler) 2 puff INHALE RQ6H PRN PRN Reason: wheezing or sob Albuterol/Ipratropium (Albuterol/Iprat 2.5/0.5mg 3 Ml Ampul.Neb) 3 ml INHALE QID [facility] Last Admin: 06/01/21 12:08 Dose: 3 ml Documented by: Hydromorphone HCl (Hydromorphone Hcl 1 Mg/Ml Syringe) 0.5 mg IVPUSH Q4H PRN; Protocol PRN Reason: Pain, Severe (Pain Scale 7-10) Last Admin: 06/01/21 09:17 Dose: 0.5 mg Documented by: Doxycycline Hyclate 100 mg/ (Sodium Chloride) 250 mls @ 166.67 mls/hr IV Q12H [facility] Last Admin: 06/01/21 11:20 Dose: 166.67 mls/hr Documented by: Levofloxacin (Levaquin) 500 mg in 100 mls @ 100 mls/hr IV Q24H [facility] Last Infusion: 06/01/21 11:15 Dose: Infused Documented by: Methylprednisolone Sodium Succinate (Methylprednisolone Sod Succ 40 Mg/Ml Vial) 40 mg IVPUSH Q12H [facility] Last Admin: 06/01/21 09:25 Dose: 40 mg Documented by: Ondansetron HCl (Ondansetron Hcl 4 Mg/2 Ml Vial) 4 mg IVPUSH ONCE PRN PRN Reason: Nausea and Vomiting Home Medications Medication Instructions Recorded Confirmed Last Taken Type albuterol sulfate 1 vial INHALATION Q4H PRN 05/17/21 05/17/21 Unknown History albuterol sulfate 90 mcg/actuation 2 puff INHALATION Q6H PRN 05/17/21 05/17/21 05/25/21 History aerosol inhaler (ProAir HFA) atorvastatin 80 mg tablet 1 tab PO DAILY 05/17/21 05/17/21 05/25/21 History bisoprolol fumarate 5 mg tablet 1 tab PO DAILY 05/17/21 05/17/21 05/25/21 History budesonide-formoterol HFA 160 2 puff PO BID 05/17/21 05/17/21 05/25/21 History mcg-4.5 mcg/actuation aerosol inhaler (Symbicort) cholecalciferol (vitamin D3) 50 50 mcg PO Q OTHER DAY 12/05/17/21 05/25/21 History mcg (2,000 unit) capsule (Vitamin D3) ipratropium 0.5 mg-albuterol 3 mg 3 ml INHALATION QID 05/17/21 05/17/21 Unknown History (2.5 mg base)/3 mL nebulization soln omeprazole 10 mg capsule,delayed 10 mg PO DAILY 05/17/21 05/17/21 05/25/21 History release tiotropium bromide 18 mcg capsule 1 cap PO DAILY 05/17/21 05/17/21 05/25/21 History with inhalation device (Spiriva with HandiHaler) Physical Exam Vital Signs: Vital Signs: Last Vital Signs Temp 98.2 F 06/01/21 11:36 Pulse 88 06/01/21 12:13 Resp 18 06/01/21 11:36 BP 136/63 06/01/21 11:36 Pulse Ox 95 06/01/21 11:36 BMI result Body Mass Index 28.5 Results Laboratory Findings CBC and BMP: 05/31/21 05:39 05/31/21 05:39 Abnormal lab findings: Abnormal Labs 05/26/21 05/26/21 05/26/21 05:17 05:18 05:18 RBC Hct MCV Neut % (Auto) 86.2 H Lymph % (Auto) 10.8 L Abs Immat Gran (auto) 0.04 H Absolute Neuts (auto) 9.3 H VBG pH 7.44 H VBG HCO3 Carbon Dioxide Anion Gap BUN 20 H Random Glucose 123 H Phosphorus 05/28/21 05/28/21 05/28/21 05:23 05:23 14:16 RBC 3.83 L Hct 36.9 L MCV Neut % (Auto) Lymph % (Auto) Abs Immat Gran (auto) Absolute Neuts (auto) VBG pH VBG HCO3 32 H Carbon Dioxide Anion Gap 11 L BUN 17 H Random Glucose Phosphorus 2.6 L 05/29/21 05/29/21 05/30/21 05:19 05:19 05:29 RBC 4.16 L 4.17 L Hct MCV 99.5 H 99.0 H Neut % (Auto) Lymph % (Auto) Abs Immat Gran (auto) Absolute Neuts (auto) VBG pH VBG HCO3 Carbon Dioxide Anion Gap 11 L BUN 8 L D Random Glucose Phosphorus 01/05/0905/31/21 05/31/21 05:29 05:39 05:39 RBC 4.10 L Hct MCV 99.8 H Neut % (Auto) Lymph % (Auto) Abs Immat Gran (auto) Absolute Neuts (auto) VBG pH VBG HCO3 Carbon Dioxide 34 H 31 H Anion Gap 8 L BUN 8 L 7 L Random Glucose 121 H Phosphorus Assessment and Plan (1) Tracheostomy dependence: Status: Acute (2) COPD (chronic obstructive pulmonary disease): Qualifiers: COPD type: emphysema Emphysema type: centrilobular Qualified Code(s): J43.2 - Centrilobular emphysema Status: Acute (3) Vocal cord paralysis: Status: Acute (4) Tracheitis: Status: Acute Start doxycycline and Levaquin Sputum culture Perform MRSA screen Continue trach collar with the medication Repeat chest x-ray Continue with tracheostomy care Once the site is healed an stabilize we could downsize her tracheostomy 29 cough tracheostomy. Procedures Date of Service Date of Service: 06/01/21
--- NOTE | 2021-06-01 13:18 | MHC.SL.SWA ---
Speech Pathologist Impression: Risk of Aspiration Risk of Aspiration Due to: Tracheostomy Dysphasia Diet Status: HOLD PO Liquid Consistency and Strategies for Safe Swallow: Liquid Intake Recommendation: HOLD PO Liquid Intake Strategies: Liquids by Teaspoon Only Solid Food Consistency: Dietary Recommendations: HOLD PO Additional Modifications to Solid Foods: Patient has been refusing thickened liquids, and was eager to be re-evaluated this morning as she was hoping for an upgrade to unmodified textures. After sips of water, patient produced immediate cough. Patient became short of breath, visibly taking slow, deep breaths. She reported she, could not breathe, and requested the nurse after no improvement when suctioning herself. RN was immediately notified, and PO trials discontinued for patient safety. Patient is not appropriate for diet upgrade at this time- Recommend withhold PO until patient's respiratory status improves. When more stable, patient may benefit from MBSS to rule in/out silent aspiration, and further evaluate for safest, least restrictive consistencies. Patient previously recommended PUREED/PUDDING THICK. Compensatory Strategies and Precautions to be Taken for Safe Swallow: Sitting Upright (90 deg) No Straw Liquids from Spoon Small Bites and Sips Rate of Ingestion Change Oral Check Supervision While Eating and Drinking for Safe Swallow: PO with TEMPERATURE CONTROL INSPECTOR Swallowing Recommended Treatments: Compens. Strategy Educat. Recommendation for Speech: Further Testing Needed Beef Selector Clinican/Clinical Fellow: No Supervisory Statement: I have reviewed and agree with the student/clinical fellow's documentation: N/A Speech Language Pathologist: Amarilys Mathis M.A., [facility]-TEMPERATURE CONTROL INSPECTOR
--- NOTE | 2021-06-01 15:10 | MHC.CM.PN ---
PATIENT WITH INCREASED SECRETIONS. POSSIBLE BRONCH PENDING. CASE MANAGEMENT FOLLOWING
[2021-06-02] VITALS (12 sets, daily range): BP systolic 132–159; BP diastolic 60–72; PULSE 88–103; RESP 16–20; TEMP 36.4–37.1; O2SAT 94–97
[2021-06-02] MEDS: HYDROmorphone HCl 1 MG/ML SYRINGE 0.5 MG IVPUSH ×4 (02:33→21:45)
--- NOTE | 2021-06-02 03:52 | PC.NURSE ---
0330 RESPIRATORY THERAPIST ON UNIT AND SHE ASSISTED PATIENT WITH TRACH SUCTIONING AND CLEANING DUE TO INCREASED PHLEGM PRODUCTION. PT MUCH RELIEVED, MEDICATED FOR PAIN, OXYGEN DELIVERY 28% VIA TRACH MASK AND ABLE TO REST WHILE IN RECLINER PER HER CHOICE
[2021-06-02] MEDS: Albuterol/Iprat 2.5/0.5MG 3 ML AMPUL.NEB INHALE ×4 (07:48→21:54)
[2021-06-02 08:32] LABS: MANUAL DIFF FLAG NO
[2021-06-02 08:34] LABS: Basophils Percent Auto 0.1 % (0-2); Eosinophils Percent Auto 0.1 % (0-4); Hematocrit 41.2 % (37.0-47.0); Hemoglobin 13.6 g/dl (12.0-16.0); Imm Gran Abs Auto 0.04 X10*3/uL (0.00-0.03); Imm Gran Pct Auto 0.4 % (0.0-0.4); Lymphocytes Absolute Auto 1.1 X10*3/uL (1.2-4.9); Lymphocytes Percent Auto 11.6 % (20-40); Mean Corpuscular Hemoglobin 31.8 pg (27.0-33.0); Mean Corpuscular Volume 96.3 fL (80.0-98.0); Mean Platelet Volume 9.8 fL (9.4-12.3); Monocytes Absolute Auto 0.3 X10*3/uL (0.1-1.2); Monocytes Percent Auto 3.6 % (2-11); Neutrophils Absolute Auto 7.9 x10*3/uL (2.0-8.3); Neutrophils Percent Auto 84.2 % (45-73); Platelet Count 314 X10*3/uL (160-400); Red Blood Count 4.28 X10*6/uL (4.20-5.50); Red Cell Distribution Width 12.1 % (11.0-16.0); White Blood Count 9.4 X10*3/uL (4.8-10.8)
[2021-06-02] MEDS: methylPREDNISolone Sod Succ 40 MG/ML VIAL IVPUSH ×2 (08:39→21:26)
[2021-06-02 08:56] LABS: Anion Gap 15 (12-20); Blood Urea Nitrogen 11 mg/dL (9-16); Calcium 8.9 mg/dL (8.4-10.2); Carbon Dioxide 28 mmol/L (22-29); Chloride 97 mmol/L (96-108); Creatinine Clr Calc Pharmacy 73.3; Estimated Glomerular Filt Rate > 60; Glucose Random 116 mg/dL (60-115); Potassium 3.7 mmol/L (3.3-5.1); Sodium 136 mmol/L (135-145)
[2021-06-02] MEDS: levoFLOXacin/D5W 500 MG/100 ML PIGGYBACK 100 MG IV (09:41)
--- NOTE | 2021-06-02 10:09 | HO.PM.IMPN ---
Subjective Subjective Date of Service: 06/02/21 Interval History: seen and examined this morning feels better today. reports improvement in breathing, less secretions Review of Systems Review of Systems: Yes all other systems are reviewed and are negative Constitutional Constitutional: Denies chills and Denies fever(s) Respiratory Respiratory: Reports cough Gastrointestinal Gastrointestinal: Denies abdominal pain Physical Exam Vital Signs: Vital Signs: Last Vital Signs Temp 98.4 F 06/02/21 07:47 Pulse 90 06/02/21 07:49 Resp 16 06/02/21 08:40 BP 144/65 H 06/02/21 07:47 Pulse Ox 95 06/02/21 07:47 BMI result Body Mass Index 28.5 Const: General: comfortable, alert and awake Nutritional Appearance: well nourished HENMT: Head: Yes normocephalic and Yes atraumatic Resp: Other: trach with mask b/l rhonchi, no wheezing Effort & Inspection: normal respiratory effort and no respiratory distress Cardio: Rate: regular rate Rhythm: regular rhythm GI: Inspection: No distended Palpation (GI): Soft to palpation and nontender Neuro: Cranial nerves: Yes CN's II-XII intact bilaterally and Yes Bilaterally intact EOM present Objective Data Active Medications Albuterol Sulfate (Albuterol Sulfate 90 Mcg 8 Gm Inhaler) 2 puff INHALE RQ6H PRN PRN Reason: wheezing or sob Albuterol/Ipratropium (Albuterol/Iprat 2.5/0.5mg 3 Ml Ampul.Neb) 3 ml INHALE QID [facility] Last Admin: 06/02/21 07:48 Dose: 3 ml Documented by: VI Hydromorphone HCl (Hydromorphone Hcl 1 Mg/Ml Syringe) 0.5 mg IVPUSH Q4H PRN; Protocol PRN Reason: Pain, Severe (Pain Scale 7-10) Last Admin: 06/02/21 08:40 Dose: 0.5 mg Documented by: KRISTY Doxycycline Hyclate 100 mg/ (Sodium Chloride) 250 mls @ 166.67 mls/hr IV Q12H [facility] Last Infusion: 06/02/21 00:13 Dose: 0 mls/hr Documented by: GILSON Levofloxacin (Levaquin) 500 mg in 100 mls @ 100 mls/hr IV Q24H [facility] Last Admin: 06/02/21 09:41 Dose: 100 mls/hr Documented by: KRISTY Methylprednisolone Sodium Succinate (Methylprednisolone Sod Succ 40 Mg/Ml Vial) 40 mg IVPUSH Q12H [facility] Last Admin: 06/02/21 08:39 Dose: 40 mg Documented by: KRISTY Ondansetron HCl (Ondansetron Hcl 4 Mg/2 Ml Vial) 4 mg IVPUSH ONCE PRN PRN Reason: Nausea and Vomiting Labs CBC & Chem 7: 06/02/21 08:09 06/02/21 08:09 Labs: Laboratory Results - last 24 hr 06/02/21 06/02/21 08:09 08:09 MCV 96.3 MCH 31.8 MCHC 33.0 RDW 12.1 Plt Count 314 D MPV 9.8 Immature Gran % (Auto) 0.4 Neut % (Auto) 84.2 H Lymph % (Auto) 11.6 L [place] % (Auto) 3.6 Eos % (Auto) 0.1 Baso % (Auto) 0.1 Lymph # (Auto) 1.1 L [place] # (Auto) 0.3 Eos # (Auto) 0.0 Baso # (Auto) 0.0 Abs Immat Gran (auto) 0.04 H Absolute Neuts (auto) 7.9 Absolute Nucleated RBC 0.000 Nucleated RBC % (auto) 0.0 Anion Gap 15 Estim Creat Clear Calc 73.3 Estimated GFR > 60 Random Glucose 116 H Calcium 8.9 Assessment and Plan (1) Tracheitis: Status: Acute (2) Acquired pneumomediastinum: Status: Acute (3) Tracheostomy dependence: Status: Acute Assessment and Plan: ICU course :80-year-old female with coronary disease an episode of Takotsubo? cardiomyopathy that resolved to a normal ejection fraction and an underlying hypertensive and COPD patient who had a tracheostomy 2 and half years ago and since D cannulated and nonhealing stoma brought in electively 2 days ago to have a flap closure done by CT surgery the surgery went successfully extubated doing well at 15-20 minutes later following a did a deep cough she developed severe respiratory distress unable to move air became dense lead cyanotic with subcutaneous air and had a clear-cut acute pneumomediastinum and the no the question of course is whether not the might have been a bleed hematoma but 1 way of the other required emergent reopening of the tracheostomy placement of a 8. Cuffed tube and she was on the ventilator and weaned spent 6 hours yesterday on a a tracheostomy cuff and today as well so currently has the balloon down and is on the tracheostomy cuff with oxygen saturations in the mid 90s respiratory rates in the 20s without any respiratory effort or distress did not have her swallow evaluation and the strict instructions from Cardiothoracic surgery was not to touch the tube until the site heals completely and that is weeks down the line so apparently this is not going to be replaced by a down sized tube at any point so some evaluation in the next 1 or 2 days possibly in conjunction with Dr. Caba is a advice needs to take place as far as the ability to feed and she is refusing a PEG tube ultimately she said she would agree to an NG tube for feeding purposes if need be. Doing well stable under 7 hours of observation on a trach cuff with low FiO2 in the 30% range L flow at about the 7-8 liters/minute no respiratory distress no stridor with the cuff down and this is a 8.? Tracheostomy tube and cardiothoracic surgery will follow at least from a distance but does not want to tube replaced or tampered with at at this point in time s/p emergent Tracheostomy 05/25 due to progressive hypoxia following tracheal closure Stable, with trach mask on, CT surgery following follow up with speech yesterday, unable to tolerate diet, downgraded to NPO repeat cxr from 06/01 unremarkable seen by pulmonology, diagnosed with tracheitis continue IV levaquin and doxycycline sputum culture pending acute COPD exacerbation continue scheduled breathing treatments and systemic steroids Hypertension stable blood pressure DISPO Patient does not want to go to STR would prefer to return home when medically stable for dc DVT prophylaxis with mechanical devices Attending Dr. Marin Full code Quality Stroke Does the patient have a stroke diagnosis?: No VTE Prior VTE?: No VTE Risk Level:: Medical - moderate - high VTE Device Contraindication: N/A - Device Ordered VTE Drug Contraindication: Treatment Not Indicated
[2021-06-02] MEDS: Doxycycline Hyclate 100 MG in 0.9 % Sodium Chloride 250 ML 166.67 MG IV (10:46)
[2021-06-02 12:33] LABS: MRSA Nasal PCR NEGATIVE (Negative); SA Nasal PCR NEGATIVE (Negative)
[2021-06-02] MEDS: Lactated Ringers 1,000 ML 80 ML IVCONT (12:45)
[2021-06-02] MEDS: Famotidine/PF 20 MG/2 ML VIAL IVPUSH (15:08)
--- NOTE | 2021-06-02 18:47 | PC.NURSE ---
pt self suctions her trach with minimal return. Also suctioned by respiratory with updraft treatments. Dressing changed by respiratory. Medicated as needed.
[2021-06-02] MEDS: Doxycycline Hyclate 100 MG in 0.9 % Sodium Chloride 250 ML 166.6 MG IV (21:26)
[2021-06-03] VITALS (12 sets, daily range): BP systolic 142–170; BP diastolic 64–96; PULSE 84–126; RESP 16–20; TEMP 36.1–37; O2SAT 95–98
[2021-06-03] MEDS: Lactated Ringers 1,000 ML 80 ML IVCONT (02:25)
[2021-06-03 05:50] LABS: MANUAL DIFF FLAG NO
[2021-06-03 06:30] LABS: Basophils Percent Auto 0.1 % (0-2); Hemoglobin 12.5 g/dl (12.0-16.0); Imm Gran Abs Auto 0.08 X10*3/uL (0.00-0.03); Imm Gran Pct Auto 0.8 % (0.0-0.4); Lymphocytes Absolute Auto 0.8 X10*3/uL (1.2-4.9); Lymphocytes Percent Auto 7.6 % (20-40); Mean Corpuscular HGB Conc 32.9 g/dl (31.0-35.0); Mean Corpuscular Volume 97.2 fL (80.0-98.0); Mean Platelet Volume 10.1 fL (9.4-12.3); Monocytes Absolute Auto 0.3 X10*3/uL (0.1-1.2); Monocytes Percent Auto 2.5 % (2-11); Neutrophils Absolute Auto 8.9 x10*3/uL (2.0-8.3); Platelet Count 313 X10*3/uL (160-400); Red Blood Count 3.91 X10*6/uL (4.20-5.50); Red Cell Distribution Width 12.3 % (11.0-16.0)
[2021-06-03 06:39] LABS: Anion Gap 13 (12-20); Blood Urea Nitrogen 13 mg/dL (9-16); Calcium 8.6 mg/dL (8.4-10.2); Carbon Dioxide 29 mmol/L (22-29); Chloride 98 mmol/L (96-108); Creatinine Clr Calc Pharmacy 73.3; Estimated Glomerular Filt Rate > 60; Glucose Random 108 mg/dL (60-115); Potassium 3.8 mmol/L (3.3-5.1); Sodium 136 mmol/L (135-145)
[2021-06-03] MEDS: Albuterol/Iprat 2.5/0.5MG 3 ML AMPUL.NEB INHALE ×3 (07:41→20:51)
[2021-06-03] MEDS: HYDROmorphone HCl 1 MG/ML SYRINGE 0.5 MG IVPUSH ×4 (09:12→22:48)
[2021-06-03] MEDS: methylPREDNISolone Sod Succ 40 MG/ML VIAL IVPUSH ×2 (09:12→21:26)
[2021-06-03] MEDS: levoFLOXacin/D5W 500 MG/100 ML PIGGYBACK 100 MG IV (09:13)
--- NOTE | 2021-06-03 09:58 | HO.PM.IMPN ---
Subjective Subjective Date of Service: 06/03/21 Interval History: seen and examined this morning minimal coughing, breathing slowly getting better secretions easier to suction no fever, chills Review of Systems Review of Systems: Yes all other systems are reviewed and are negative Constitutional Constitutional: Denies chills and Denies fever(s) Cardiovascular Cardiovascular: Denies chest pain Gastrointestinal Gastrointestinal: Denies abdominal pain Physical Exam Vital Signs: Vital Signs: Last Vital Signs Temp 97.3 F 06/03/21 07:04 Pulse 91 06/03/21 07:44 Resp 16 06/03/21 09:12 BP 165/78 H 06/03/21 07:04 Pulse Ox 97 06/03/21 07:04 BMI result Body Mass Index 28.5 Const: General: comfortable, alert and awake Nutritional Appearance: well nourished HENMT: Head: Yes normocephalic and Yes atraumatic Resp: Other: trach with mask b/l rhonchi, no wheezing Effort & Inspection: normal respiratory effort and no respiratory distress Cardio: Rate: regular rate Rhythm: regular rhythm GI: Inspection: No distended Palpation (GI): Soft to palpation and nontender Neuro: Cranial nerves: Yes CN's II-XII intact bilaterally and Yes Bilaterally intact EOM present Objective Data Active Medications Albuterol Sulfate (Albuterol Sulfate 90 Mcg 8 Gm Inhaler) 2 puff INHALE RQ6H PRN PRN Reason: wheezing or sob Albuterol/Ipratropium (Albuterol/Iprat 2.5/0.5mg 3 Ml Ampul.Neb) 3 ml INHALE QID [facility] Last Admin: 06/03/21 07:41 Dose: 3 ml Documented by: RASHAUN Famotidine (Famotidine/Pf 20 Mg/2 Ml Vial) 20 mg IVPUSH DAILY [facility] Hydromorphone HCl (Hydromorphone Hcl 1 Mg/Ml Syringe) 0.5 mg IVPUSH Q4H PRN; Protocol PRN Reason: Pain, Severe (Pain Scale 7-10) Last Admin: 06/03/21 09:12 Dose: 0.5 mg Documented by: KRISTY Doxycycline Hyclate 100 mg/ (Sodium Chloride) 250 mls @ 166.67 mls/hr IV Q12H [facility] Last Infusion: 06/02/21 23:26 Dose: 0 mls/hr Documented by: ELIZABETH Levofloxacin (Levaquin) 500 mg in 100 mls @ 100 mls/hr IV Q24H [facility] Last Admin: 06/03/21 09:13 Dose: 100 mls/hr Documented by: KRISTY Dextrose/Sodium Chloride (D51/2ns) 1,000 mls @ 80 mls/hr IVCONT .[id number] [facility] Methylprednisolone Sodium Succinate (Methylprednisolone Sod Succ 40 Mg/Ml Vial) 40 mg IVPUSH Q12H [facility] Last Admin: 06/03/21 09:12 Dose: 40 mg Documented by: KRISTY Ondansetron HCl (Ondansetron Hcl 4 Mg/2 Ml Vial) 4 mg IVPUSH ONCE PRN PRN Reason: Nausea and Vomiting Labs CBC & Chem 7: 06/03/21 05:30 06/03/21 05:30 Labs: Laboratory Results - last 24 hr 06/01/21 06/03/21 06/03/21 16:20 05:30 05:30 MCV 97.2 MCH 32.0 MCHC 32.9 RDW 12.3 Plt Count 313 MPV 10.1 Immature Gran % (Auto) 0.8 H Neut % (Auto) 89.0 H Lymph % (Auto) 7.6 L [place] % (Auto) 2.5 Eos % (Auto) 0.0 Baso % (Auto) 0.1 Lymph # (Auto) 0.8 L [place] # (Auto) 0.3 Eos # (Auto) 0.0 Baso # (Auto) 0.0 Abs Immat Gran (auto) 0.08 H Absolute Neuts (auto) 8.9 H Absolute Nucleated RBC 0.000 Nucleated RBC % (auto) 0.0 Anion Gap 13 Estim Creat Clear Calc 73.3 Estimated GFR > 60 Random Glucose 108 Calcium 8.6 Nasal Screen MRSA (PCR) NEGATIVE Nasal S. aureus Screen NEGATIVE Nasal MRSA/S.aureus Interp SEE NOTE Microbiology Microbiology Results: Microbiology 06/01/21 21:53 Gram Stain - Final Sputum - Suctioned Sputum Culture - Preliminary Culture in progress. Assessment and Plan (1) Tracheitis: Status: Acute (2) Acquired pneumomediastinum: Status: Acute (3) Tracheostomy dependence: Status: Acute Assessment and Plan: ICU course :80-year-old female with coronary disease an episode of Takotsubo? cardiomyopathy that resolved to a normal ejection fraction and an underlying hypertensive and COPD patient who had a tracheostomy 2 and half years ago and since D cannulated and nonhealing stoma brought in electively 2 days ago to have a flap closure done by CT surgery the surgery went successfully extubated doing well at 15-20 minutes later following a did a deep cough she developed severe respiratory distress unable to move air became dense lead cyanotic with subcutaneous air and had a clear-cut acute pneumomediastinum and the no the question of course is whether not the might have been a bleed hematoma but 1 way of the other required emergent reopening of the tracheostomy placement of a 8. Cuffed tube and she was on the ventilator and weaned spent 6 hours yesterday on a a tracheostomy cuff and today as well so currently has the balloon down and is on the tracheostomy cuff with oxygen saturations in the mid 90s respiratory rates in the 20s without any respiratory effort or distress did not have her swallow evaluation and the strict instructions from Cardiothoracic surgery was not to touch the tube until the site heals completely and that is weeks down the line so apparently this is not going to be replaced by a down sized tube at any point so some evaluation in the next 1 or 2 days possibly in conjunction with Dr. Caba is a advice needs to take place as far as the ability to feed and she is refusing a PEG tube ultimately she said she would agree to an NG tube for feeding purposes if need be. Doing well stable under 7 hours of observation on a trach cuff with low FiO2 in the 30% range L flow at about the 7-8 liters/minute no respiratory distress no stridor with the cuff down and this is a 8.? Tracheostomy tube and cardiothoracic surgery will follow at least from a distance but does not want to tube replaced or tampered with at at this point in time s/p emergent Tracheostomy 05/25 due to progressive hypoxia following tracheal closure Stable, with trach mask on, CT surgery following follow up with speech, unable to tolerate diet, currently NPO repeat cxr from 06/01 unremarkable seen by pulmonology, diagnosed with tracheitis, continue IV levaquin and doxycycline sputum culture pending will need speech re-eval Friday acute COPD exacerbation continue scheduled breathing treatments and systemic steroids Hypertension stable blood pressure DISPO Patient does not want to go to [facility] would prefer to return home when medically stable for dc DVT prophylaxis with mechanical devices Attending Dr. Marin Full code Quality Stroke Does the patient have a stroke diagnosis?: No VTE Prior VTE?: No VTE Risk Level:: Medical - moderate - high VTE Device Contraindication: N/A - Device Ordered VTE Drug Contraindication: Treatment Not Indicated
[2021-06-03] MEDS: Doxycycline Hyclate 100 MG in 0.9 % Sodium Chloride 250 ML 166.67 MG IV (10:24)
[2021-06-03] MEDS: Famotidine/PF 20 MG/2 ML VIAL IVPUSH (10:25)
[2021-06-03] MEDS: Dextrose 5 % and 0.45 % NaCl 1,000 ML 80 ML IVCONT (12:20)
--- NOTE | 2021-06-03 19:32 | PC.NURSE ---
Pt refused to have height and weight done. Requested to have it checked tomorrow morning.
[2021-06-03] MEDS: Doxycycline Hyclate 100 MG in 0.9 % Sodium Chloride 250 ML 166.6 MG IV (21:27)
[2021-06-04] VITALS (9 sets, daily range): BP systolic 126–155; BP diastolic 60–75; PULSE 93–117; RESP 15–20; TEMP 36.1–36.6; O2SAT 95–97; BMI 29.7
[2021-06-04] MEDS: Dextrose 5 % and 0.45 % NaCl 1,000 ML 80 ML IVCONT ×2 (00:30→14:25)
[2021-06-04] MEDS: HYDROmorphone HCl 1 MG/ML SYRINGE 0.5 MG IVPUSH ×5 (03:21→23:47)
[2021-06-04] MEDS: Albuterol/Iprat 2.5/0.5MG 3 ML AMPUL.NEB INHALE ×5 (03:23→22:59)
[2021-06-04] MEDS: levoFLOXacin/D5W 500 MG/100 ML PIGGYBACK 100 MG IV (09:39)
[2021-06-04] MEDS: Famotidine/PF 20 MG/2 ML VIAL IVPUSH (09:39)
[2021-06-04] MEDS: methylPREDNISolone Sod Succ 40 MG/ML VIAL IVPUSH ×2 (09:39→20:16)
[2021-06-04] MEDS: Doxycycline Hyclate 100 MG in 0.9 % Sodium Chloride 250 ML 166.6 MG IV ×2 (10:46→20:16)
--- NOTE | 2021-06-04 14:44 | HO.PM.IMPN ---
Subjective Subjective Date of Service: 06/04/21 Review of Systems minimal coughing, breathing slowly getting better secretions easier to suction no fever, chills all other systems are reviewed and are negative Physical Exam Vital Signs: Vital Signs: Last Vital Signs Temp 97.9 F 06/04/21 11:29 Pulse 100 06/04/21 11:29 Resp 16 06/04/21 14:22 BP 126/60 06/04/21 11:29 Pulse Ox 96 06/04/21 11:29 BMI result Body Mass Index 28.5 Appearing in no acute distress lung sounds are clear to auscultation, trach collar intact heart regular rate rhythm, clear S1, S2 positive bowel sounds, abdomen is soft, nontender neuro patient is alert x3, no focal deficits Objective Data Active Medications Albuterol/Ipratropium (Albuterol/Iprat 2.5/0.5mg 3 Ml Ampul.Neb) 3 ml INHALE RQ4H WHILE AWAKE [facility] Albuterol/Ipratropium (Albuterol/Iprat 2.5/0.5mg 3 Ml Ampul.Neb) 3 ml INHALE RQ4H PRN PRN Reason: sob, wheezing Famotidine (Famotidine/Pf 20 Mg/2 Ml Vial) 20 mg IVPUSH DAILY [facility] Last Admin: 06/04/21 09:39 Dose: 20 mg Documented by: LEANDRO Hydromorphone HCl (Hydromorphone Hcl 1 Mg/Ml Syringe) 0.5 mg IVPUSH Q4H PRN; Protocol PRN Reason: Pain, Severe (Pain Scale 7-10) Last Admin: 06/04/21 14:22 Dose: 0.5 mg Documented by: KRISTY Doxycycline Hyclate 100 mg/ (Sodium Chloride) 250 mls @ 166.67 mls/hr IV Q12H [facility] Last Infusion: 06/04/21 12:47 Dose: 0 mls/hr Documented by: LEANDRO Levofloxacin (Levaquin) 500 mg in 100 mls @ 100 mls/hr IV Q24H [facility] Last Infusion: 06/04/21 11:06 Dose: 0 mls/hr Documented by: LEANDRO Dextrose/Sodium Chloride (D51/2ns) 1,000 mls @ 80 mls/hr IVCONT .[id number] [facility] Last Admin: 06/04/21 14:25 Dose: 80 mls/hr Documented by: KRISTY Methylprednisolone Sodium Succinate (Methylprednisolone Sod Succ 40 Mg/Ml Vial) 40 mg IVPUSH Q12H [facility] Last Admin: 06/04/21 09:39 Dose: 40 mg Documented by: LEANDRO Ondansetron HCl (Ondansetron Hcl 4 Mg/2 Ml Vial) 4 mg IVPUSH ONCE PRN PRN Reason: Nausea and Vomiting Labs CBC & Chem 7: 06/03/21 05:30 06/03/21 05:30 Microbiology Microbiology Results: Microbiology 06/01/21 21:53 Gram Stain - Final Sputum - Suctioned Sputum Culture - Final Assessment and Plan (1) Tracheitis: Status: Acute Assessment and Plan: ICU course :80-year-old female with coronary disease an episode of Takotsubo? cardiomyopathy that resolved to a normal ejection fraction and an underlying hypertensive and COPD patient who had a tracheostomy 2 and half years ago and since D cannulated and nonhealing stoma brought in electively 2 days ago to have a flap closure done by CT surgery the surgery went successfully extubated doing well at 15-20 minutes later following a did a deep cough she developed severe respiratory distress unable to move air became dense lead cyanotic with subcutaneous air and had a clear-cut acute pneumomediastinum and the no the question of course is whether not the might have been a bleed hematoma but 1 way of the other required emergent reopening of the tracheostomy placement of a 8. Cuffed tube and she was on the ventilator and weaned spent 6 hours yesterday on a a tracheostomy cuff and today as well so currently has the balloon down and is on the tracheostomy cuff with oxygen saturations in the mid 90s respiratory rates in the 20s without any respiratory effort or distress did not have her swallow evaluation and the strict instructions from Cardiothoracic surgery was not to touch the tube until the site heals completely and that is weeks down the line so apparently this is not going to be replaced by a down sized tube at any point so some evaluation in the next 1 or 2 days possibly in conjunction with Dr. Caba is a advice needs to take place as far as the ability to feed and she is refusing a PEG tube ultimately she said she would agree to an NG tube for feeding purposes if need be. Doing well stable under 7 hours of observation on a trach cuff with low FiO2 in the 30% range L flow at about the 7-8 liters/minute no respiratory distress no stridor with the cuff down and this is a 8.? Tracheostomy tube and cardiothoracic surgery will follow at least from a distance but does not want to tube replaced or tampered with at at this point in time s/p emergent Tracheostomy 05/25 due to progressive hypoxia following tracheal closure Stable, with trach mask on, CT surgery following repeat cxr from 06/01 unremarkable seen by pulmonology, diagnosed with tracheitis, continue IV levaquin and doxycycline sputum culture pending speech re-eval rec ground diet, total supervision, thin liquids, if issues persist with aspiration consider MBBS acute COPD exacerbation continue scheduled breathing treatments and systemic steroids Hypertension stable blood pressure DISPO Patient does not want to go to [facility] would prefer to return home when medically stable for dc DVT prophylaxis with mechanical devices Attending Dr. Love Full code Quality Stroke Does the patient have a stroke diagnosis?: No VTE Prior VTE?: No VTE Risk Level:: Medical - moderate - high VTE Device Contraindication: N/A - Device Ordered VTE Drug Contraindication: Treatment Not Indicated
--- NOTE | 2021-06-04 14:59 | MHC.SL.SWA ---
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 TOTAL SUPERVISION, CLOSE MONITORING OF TOLERANCE, AND ASPIRATION PRECAUTIONS ARE CRUCIAL. Patient must have dentures in when eating meals. Oral care before meals. Cuff to be deflated for PO intake. Reviewed aspiration precautions with patient. Patient to be re-evaluated tomorrow morning. Oral Medication Intake: Crushed with Puree Compensatory Strategies and Precautions to be Taken for Safe Swallow: Sitting Upright (90 deg) Small Bites and Sips Alternate Liquids/Solids Rate of Ingestion Change Oral Check Avoid Specific Foods Supervision While Eating and Drinking for Safe Swallow: Total Supervision (1:1) Foods to Avoid: tough, sticky foods Swallowing Recommended Treatments: Compens. Strategy Educat. Recommendation for Speech: PAVING CREW FOREMAN will continue to follow. Patient would benefit from MBSS during inpatient stay. Gang Sawyer Clinican/Clinical Fellow: No Supervisory Statement: I have reviewed and agree with the student/clinical fellow's documentation: N/A Speech Language Pathologist: Amarilys Mathis M.A., CCC-PAVING CREW FOREMAN
--- NOTE | 2021-06-04 16:08 | PC.NURSE ---
pt reported that she has not had a BM in over a week. Offered to request BM meds from MD for constipation but pt refused reporting that since she has not eaten in many days she would like to wait until she starts eating again to address constipation. will cont to monitor and assess
--- NOTE | 2021-06-04 17:04 | MHC.CLN ---
F/U DIET ADVANCED TODAY BY BAG MACHINE OPERATOR HELPER. DIET=2 GRAM SODIUM, NDD2 WITH THIN LIQUIDS. CLOSE MONITORING OF TOLERANCE AND ASPIRATION PRECAUTIONS. CONTINUE TO FOLLOW DIET TOLERANCE AND INTAKE.
[2021-06-05] VITALS (12 sets, daily range): BP systolic 114–169; BP diastolic 58–80; PULSE 72–106; RESP 16–20; TEMP 36.1–36.9; O2SAT 94–100
[2021-06-05] MEDS: Albuterol/Iprat 2.5/0.5MG 3 ML AMPUL.NEB INHALE ×5 (03:23→20:29)
[2021-06-05] MEDS: Dextrose 5 % and 0.45 % NaCl 1,000 ML 80 ML IVCONT (03:28)
[2021-06-05] MEDS: levoFLOXacin/D5W 500 MG/100 ML PIGGYBACK 100 MG IV (09:06)
[2021-06-05] MEDS: Famotidine/PF 20 MG/2 ML VIAL IVPUSH (09:06)
[2021-06-05] MEDS: methylPREDNISolone Sod Succ 40 MG/ML VIAL IVPUSH ×2 (09:06→20:37)
--- NOTE | 2021-06-05 09:42 | MHC.CM.PN ---
Addendum entered by Jessika Simpson 06/05/21 13:59: TRACH CHANGED. [facility] NOT REPLYING REFERRAL PLACED TO [facility] [place] Original Note: PER HOSPITALIST CONVERSATION WITH PATIENT, A REFERRAL IS NOW PLACED TO [facility] FOR HER P.T. AND PULMONARY NEEDS PRIOR TO TRACH REPLACEMENT CASE MANAGEMENT FOLLOWING ALONG
--- NOTE | 2021-06-05 10:09 | P.PNIM_ITS ---
Subjective Subjective Date of Service: 06/06/21 Review of Systems minimal coughing, breathing slowly getting better secretions easier to suction no fever, chills ?all other systems are reviewed and are negative Physical Exam Vital Signs: Vital Signs: Last Vital Signs Temp 97.2 F 06/05/21 08:00 Pulse 72 06/05/21 08:03 Resp 16 06/05/21 08:03 BP 149/68 H 06/05/21 08:00 Pulse Ox 98 06/05/21 08:00 BMI result Body Mass Index 29.7 Appearing in no acute distress lung sounds are clear to auscultation, trach in place heart regular rate rhythm, clear S1, S2 positive bowel sounds, abdomen is soft, nontender neuro patient is alert x3, no focal deficits Objective Data Active Medications Albuterol/Ipratropium (Albuterol/Iprat 2.5/0.5mg 3 Ml Ampul.Neb) 3 ml INHALE RQ4H WHILE AWAKE [facility] Last Admin: 06/05/21 08:03 Dose: 3 ml Documented by: SOCO Albuterol/Ipratropium (Albuterol/Iprat 2.5/0.5mg 3 Ml Ampul.Neb) 3 ml INHALE RQ4H PRN PRN Reason: sob, wheezing Last Admin: 06/05/21 03:23 Dose: 3 ml Documented by: YOMI Famotidine (Famotidine/Pf 20 Mg/2 Ml Vial) 20 mg IVPUSH DAILY [facility] Last Admin: 06/05/21 09:06 Dose: 20 mg Documented by: DORON Hydromorphone HCl (Hydromorphone Hcl 1 Mg/Ml Syringe) 0.5 mg IVPUSH Q4H PRN; Protocol PRN Reason: Pain, Severe (Pain Scale 7-10) Last Admin: 06/04/21 23:47 Dose: 0.5 mg Documented by: YOMI Doxycycline Hyclate 100 mg/ (Sodium Chloride) 250 mls @ 166.67 mls/hr IV Q12H [facility] Last Infusion: 06/04/21 23:28 Dose: 0 mls/hr Documented by: YOMI Levofloxacin (Levaquin) 500 mg in 100 mls @ 100 mls/hr IV Q24H [facility] Last Admin: 06/05/21 09:06 Dose: 100 mls/hr Documented by: DORON Dextrose/Sodium Chloride (D51/2ns) 1,000 mls @ 80 mls/hr IVCONT .[id number] [facility] Last Admin: 06/05/21 03:28 Dose: 80 mls/hr Documented by: YOMI Methylprednisolone Sodium Succinate (Methylprednisolone Sod Succ 40 Mg/Ml Vial) 40 mg IVPUSH Q12H [facility] Last Admin: 06/05/21 09:06 Dose: 40 mg Documented by: DORON Ondansetron HCl (Ondansetron Hcl 4 Mg/2 Ml Vial) 4 mg IVPUSH ONCE PRN PRN Reason: Nausea and Vomiting Labs CBC & Chem 7: 06/06/21 05:08 06/06/21 05:08 Microbiology Microbiology Results: Microbiology 06/01/21 21:53 Gram Stain - Final Sputum - Suctioned Sputum Culture - Final Assessment and Plan (1) Tracheitis: Status: Acute Assessment and Plan: ICU course :80-year-old female with coronary disease an episode of Takotsubo? cardiomyopathy that resolved to a normal ejection fraction and an underlying hypertensive and COPD patient who had a tracheostomy 2 and half years ago and since D cannulated and nonhealing stoma brought in electively 2 days ago to have a flap closure done by CT surgery the surgery went successfully extubated doing well at 15-20 minutes later following a did a deep cough she developed severe respiratory distress unable to move air became dense lead cyanotic with subcutaneous air and had a clear-cut acute pneumomediastinum and the no the question of course is whether not the might have been a bleed hematoma but 1 way of the other required emergent reopening of the tracheostomy placement of a 8. Cuffed tube and she was on the ventilator and weaned spent 6 hours yesterday on a a tracheostomy cuff and today as well so currently has the balloon down and is on the tracheostomy cuff with oxygen saturations in the mid 90s respiratory rates in the 20s without any respiratory effort or distress did not have her swallow evaluation and the strict instructions from Cardiothoracic surgery was not to touch the tube until the site heals completely and that is weeks down the line so apparently this is not going to be replaced by a down sized tube at any point so some evaluation in the next 1 or 2 days possibly in conjunction with Dr. Caba is a advice needs to take place as far as the ability to feed and she is refusing a PEG tube ultimately she said she would agree to an NG tube for feeding purposes if need be. Doing well stable under 7 hours of observation on a trach cuff with low FiO2 in the 30% range L flow at about the 7-8 liters/minute no respiratory distress no stridor with the cuff down and this is a 8.? Tracheostomy tube and cardiothoracic surgery will follow at least from a distance but does not want to tube replaced or tampered with at at this point in time s/p emergent Tracheostomy 05/25 due to progressive hypoxia following tracheal closure Stable, with trach mask on, CT surgery following repeat cxr from 06/01 unremarkable seen by pulmonology, diagnosed with tracheitis, continue IV levaquin and doxycycline sputum culture pending speech re-eval rec ground diet, total supervision, thin liquids, if issues persist with aspiration consider MBBS Seen by Dr. Monge, senior underwriting assistant, [place] 8 cuffed tracheostomy changed at the bedside over bougie to [place] 8 uncuffed tracheostomy with no complications. Plan for pulmonary rehab in the next 1-2 days acute COPD exacerbation continue scheduled breathing treatments and systemic steroids Hypertension stable blood pressure DISPO Plan is to change trach to uncuffed and tx to [facility] DVT prophylaxis with mechanical devices Attending Dr. Love Full code Quality Stroke Does the patient have a stroke diagnosis?: No VTE Prior VTE?: No VTE Risk Level:: Medical - moderate - high VTE Device Contraindication: N/A - Device Ordered VTE Drug Contraindication: Treatment Not Indicated
[2021-06-05] MEDS: HYDROmorphone HCl 1 MG/ML SYRINGE 0.5 MG IVPUSH (10:33)
[2021-06-05] MEDS: Doxycycline Hyclate 100 MG in 0.9 % Sodium Chloride 250 ML 166.67 MG IV ×2 (10:34→20:37)
[2021-06-05] MEDS: fentaNYL citrate/PF 100 MCG/2 ML VIAL 25 MCG IVPUSH (11:40)
--- NOTE | 2021-06-05 13:46 | PM.CCN ---
Critical Care Event Note Summary Date of Service: 06/05/21 Code activated: No Narrative: [place] 8 cuffed tracheostomy changed at the bedside over bougie to [place] 8 uncuffed tracheostomy with no complications. Patient tolerated the procedure well. Critical Care Time (minutes): 0
--- NOTE | 2021-06-05 14:29 | MHC.SLORD ---
Speech Language Pathology Order Status: Attempted to see Pt mid-day after respiratory treatment. RT present, reported that PT was about to be seen for trach tube change by MD., and was NPO. and likely not appropriate for PO trials today. Will re-attempt tomorrow.
[2021-06-05] MEDS: HYDROmorphone HCl 1 MG/ML SYRINGE 0.25 MG IVPUSH ×2 (18:27→22:20)
[2021-06-05] MEDS: Cholecalciferol (Vitamin D3) 25 MCG TABLET 50 MCG PO (18:37)
[2021-06-05 18:41] LABS: B Type Natriuretic Peptide 286 pg/mL (<100)
[2021-06-05] MEDS: ondansetron HCL 4 MG/2 ML VIAL IVPUSH (22:13)
[2021-06-06] VITALS (13 sets, daily range): BP systolic 104–134; BP diastolic 57–68; PULSE 77–95; RESP 18–20; TEMP 36–37.4; O2SAT 95–100
[2021-06-06] MEDS: Albuterol/Iprat 2.5/0.5MG 3 ML AMPUL.NEB INHALE ×5 (01:00→20:19)
[2021-06-06] MEDS: Acetaminophen 325 MG TABLET 650 MG PO (01:45)
[2021-06-06 05:35] LABS: Anion Gap 9 (12-20); Blood Urea Nitrogen 12 mg/dL (9-16); Calcium 8.4 mg/dL (8.4-10.2); Carbon Dioxide 34 mmol/L (22-29); Chloride 98 mmol/L (96-108); Creatinine Clr Calc Pharmacy 64.4; Estimated Glomerular Filt Rate > 60; Glucose Random 124 mg/dL (60-115); Potassium 3.1 mmol/L (3.3-5.1); Sodium 138 mmol/L (135-145)
[2021-06-06 05:40] LABS: Hematocrit 38.3 % (37.0-47.0); Hemoglobin 12.5 g/dl (12.0-16.0); Mean Corpuscular HGB Conc 32.6 g/dl (31.0-35.0); Mean Platelet Volume 9.8 fL (9.4-12.3); Platelet Count 318 X10*3/uL (160-400); Red Blood Count 4.03 X10*6/uL (4.20-5.50); Red Cell Distribution Width 12.1 % (11.0-16.0); White Blood Count 10.9 X10*3/uL (4.8-10.8)
--- NOTE | 2021-06-06 07:58 | HO.PM.IMPN ---
Subjective Subjective Date of Service: 06/06/21 Review of Systems Follow up trach change minimal coughing, breathing slowly getting better secretions easier to suction no fever, chills Physical Exam Vital Signs: Vital Signs: Last Vital Signs Temp 96.8 F 06/06/21 02:53 Pulse 95 06/06/21 02:53 Resp 18 06/06/21 02:53 BP 122/58 L 06/06/21 02:53 Pulse Ox 97 06/06/21 02:53 BMI result Body Mass Index 29.7 Appearing in no acute distress lung sounds are clear to auscultation trach present heart regular rate rhythm, clear S1, S2 positive bowel sounds, abdomen is soft, nontender neuro patient is alert x3, no focal deficits Objective Data Active Medications Acetaminophen (Acetaminophen 325 Mg Tablet) 650 mg PO Q6H PRN PRN Reason: Pain, Mild (Pain Scale 1-3) Last Admin: 06/06/21 01:45 Dose: 650 mg Documented by: YOMI Albuterol/Ipratropium (Albuterol/Iprat 2.5/0.5mg 3 Ml Ampul.Neb) 3 ml INHALE RQ4H WHILE AWAKE [facility] Last Admin: 06/05/21 20:29 Dose: 3 ml Documented by: RAMSES Albuterol/Ipratropium (Albuterol/Iprat 2.5/0.5mg 3 Ml Ampul.Neb) 3 ml INHALE RQ4H PRN PRN Reason: sob, wheezing Last Admin: 06/06/21 01:00 Dose: 3 ml Documented by: RAMSES Atorvastatin Calcium (Atorvastatin Calcium 80 Mg Tablet) 80 mg PO DAILY [facility] Bisoprolol Fumarate (Bisoprolol Fumarate 5 Mg Tablet) 5 mg PO DAILY [facility] Famotidine (Famotidine/Pf 20 Mg/2 Ml Vial) 20 mg IVPUSH DAILY [facility] Last Admin: 06/05/21 09:06 Dose: 20 mg Documented by: DORON Hydromorphone HCl (Hydromorphone Hcl 1 Mg/Ml Syringe) 0.25 mg IVPUSH Q4H PRN; Protocol PRN Reason: Pain, Mild (Pain Scale 1-3) Last Admin: 06/05/21 22:20 Dose: 0.25 mg Documented by: YOMI Doxycycline Hyclate 100 mg/ (Sodium Chloride) 250 mls @ 166.67 mls/hr IV Q12H [facility] Last Infusion: 06/06/21 01:04 Dose: 0 mls/hr Documented by: YOMI Levofloxacin (Levaquin) 500 mg in 100 mls @ 100 mls/hr IV Q24H [facility] Last Infusion: 06/05/21 10:34 Dose: 0 mls/hr Documented by: DORON Methylprednisolone Sodium Succinate (Methylprednisolone Sod Succ 40 Mg/Ml Vial) 40 mg IVPUSH Q12H [facility] Last Admin: 06/05/21 20:37 Dose: 40 mg Documented by: YOMI Omeprazole (Omeprazole 20 Mg/10 Ml Susp.Recon) 10 mg PO DAILY@0630 [facility] Last Admin: 06/06/21 05:30 Dose: 10 mg Documented by: YOMI Vitamin D (Cholecalciferol (Vitamin D3) 25 Mcg Tablet) 50 mcg PO Q2D [facility] Last Admin: 06/05/21 18:37 Dose: 50 mcg Documented by: DORON Labs CBC & Chem 7: 06/06/21 05:08 06/06/21 05:08 Labs: Laboratory Results - last 24 hr 06/05/21 06/06/21 06/06/21 18:08 05:08 05:08 MCV 95.0 MCH 31.0 MCHC 32.6 RDW 12.1 Plt Count 318 MPV 9.8 Absolute Nucleated RBC 0.000 Nucleated RBC % (auto) 0.0 Anion Gap 9 L Estim Creat Clear Calc 64.4 Estimated GFR > 60 Random Glucose 124 H Calcium 8.4 B-Natriuretic Peptide 286 H Assessment and Plan (1) Tracheitis: Status: Acute Assessment and Plan: ICU course :80-year-old female with coronary disease an episode of Takotsubo? cardiomyopathy that resolved to a normal ejection fraction and an underlying hypertensive and COPD patient who had a tracheostomy 2 and half years ago and since D cannulated and nonhealing stoma brought in electively 2 days ago to have a flap closure done by CT surgery the surgery went successfully extubated doing well at 15-20 minutes later following a did a deep cough she developed severe respiratory distress unable to move air became dense lead cyanotic with subcutaneous air and had a clear-cut acute pneumomediastinum and the no the question of course is whether not the might have been a bleed hematoma but 1 way of the other required emergent reopening of the tracheostomy placement of a 8. Cuffed tube and she was on the ventilator and weaned spent 6 hours yesterday on a a tracheostomy cuff and today as well so currently has the balloon down and is on the tracheostomy cuff with oxygen saturations in the mid 90s respiratory rates in the 20s without any respiratory effort or distress did not have her swallow evaluation and the strict instructions from Cardiothoracic surgery was not to touch the tube until the site heals completely and that is weeks down the line so apparently this is not going to be replaced by a down sized tube at any point so some evaluation in the next 1 or 2 days possibly in conjunction with Dr. Caba is a advice needs to take place as far as the ability to feed and she is refusing a PEG tube ultimately she said she would agree to an NG tube for feeding purposes if need be. Doing well stable under 7 hours of observation on a trach cuff with low FiO2 in the 30% range L flow at about the 7-8 liters/minute no respiratory distress no stridor with the cuff down and this is a 8.? Tracheostomy tube and cardiothoracic surgery will follow at least from a distance but does not want to tube replaced or tampered with at at this point in time s/p emergent Tracheostomy 05/25 due to progressive hypoxia following tracheal closure Stable, with trach mask on, CT surgery following repeat cxr from 06/01 unremarkable seen by pulmonology, diagnosed with tracheitis, continue IV levaquin and doxycycline sputum culture mixed speech re-eval rec ground diet, total supervision, thin liquids, if issues persist with aspiration consider MBBS Seen by Dr. Burris, mixer operator tablets, [place] 8 cuffed tracheostomy changed at the bedside over bougie to [place] 8 uncuffed tracheostomy with no complications. Plan for pulmonary rehab in the next 1-2 days acute COPD exacerbation continue scheduled breathing treatments and systemic steroids Hypertension stable blood pressure DISPO Plan is to change trach to uncuffed and tx to [facility] when bed available DVT prophylaxis with mechanical devices Attending Dr. Love Full code Quality Stroke Does the patient have a stroke diagnosis?: No VTE Prior VTE?: No VTE Risk Level:: Medical - moderate - high VTE Device Contraindication: N/A - Device Ordered VTE Drug Contraindication: Treatment Not Indicated
[2021-06-06] MEDS: Famotidine/PF 20 MG/2 ML VIAL IVPUSH (09:19)
[2021-06-06] MEDS: Potassium Chloride ER 20 MEQ TAB.ER.PRT 40 MEQ PO (09:19)
[2021-06-06] MEDS: Bisoprolol Fumarate 5 MG TABLET PO (09:19)
[2021-06-06] MEDS: Atorvastatin Calcium 80 MG TABLET PO (09:19)
[2021-06-06] MEDS: methylPREDNISolone Sod Succ 40 MG/ML VIAL IVPUSH ×2 (09:19→20:34)
[2021-06-06] MEDS: Doxycycline Hyclate 100 MG in 0.9 % Sodium Chloride 250 ML 166.67 MG IV ×2 (10:52→20:44)
[2021-06-06] MEDS: HYDROmorphone HCl 1 MG/ML SYRINGE 0.25 MG IVPUSH ×2 (11:26→21:18)
--- NOTE | 2021-06-06 11:52 | MHC.SL.SWA ---
Speech Pathologist Impression: Risk of Aspiration Risk of Aspiration Due to: Tracheostomy Dysphasia Diet Status: No Change Liquid Consistency and Strategies for Safe Swallow: Liquid Intake Recommendation: Thin Liquid Intake Strategies: Small Sips Solid Food Consistency: Dietary Recommendations: Grnd/Mech Altered (NDD2) Additional Modifications to Solid Foods: Recommend continue GROUND/MECH ALTERED (NDD2) solids (WITH EXTRA SAUCE/GRAVY) and THIN liquids, pills CRUSHED in PUREE. TOTAL SUPERVISION, CLOSE MONITORING OF TOLERANCE, AND ASPIRATION PRECAUTIONS ARE CRUCIAL. Patient must have dentures in when eating meals. Oral care before meals. Reviewed aspiration precautions with patient. Hold PO if there are any clinical signs of aspiration, decrease in 02 sat, or increased need for suctioning. FITTINGS FINISHER will continue to follow. Patient would benefit from repeat-MBSS. FITTINGS FINISHER discussed recommendation for MBSS possibly (inpatient or outpatient), patient stating she does not want it done and does not feel it is necessary. Oral Medication Intake: Crushed with Puree Compensatory Strategies and Precautions to be Taken for Safe Swallow: Sitting Upright (90 deg) Small Bites and Sips Alternate Liquids/Solids Rate of Ingestion Change Oral Check Avoid Specific Foods Supervision While Eating and Drinking for Safe Swallow: Total Supervision (1:1) Foods to Avoid: tough, sticky foods Swallowing Recommended Treatments: Compens. Strategy Educat., inpatient vs. outpatient MBSS Recommendation for Speech: FITTINGS FINISHER will continue to follow M-F Syrup Mixer Helper Clinican/Clinical Fellow: No Supervisory Statement: I have reviewed and agree with the student/clinical fellow's documentation: N/A Speech Language Pathologist: Amarilys Mathis M.A., [facility]-FITTINGS FINISHER
--- NOTE | 2021-06-06 12:10 | MHC.CM.PN ---
SNF REFERRALS UPDATED. PLAN IS DC BY Friday06/08/21 [facility] IS FIRST CHOICE
[2021-06-06] MEDS: levoFLOXacin/D5W 500 MG/100 ML PIGGYBACK 100 MG IV (12:42)
--- NOTE | 2021-06-06 13:39 | MHC.CLN ---
F/U DIET=2 GRAM SODIUM, NDD2 WITH THIN LIQUIDS. HOLD PO IF ANY CLINICAL SIGNS OF ASPIRATION. VARIABLE INTAKE WITH SOME MEALS 100%. ADDING ENSURE BID TO INCREASE CALORIE INTAKE. CONTINUE TO FOLLOW DIET TOLERANCE AND INTAKE.
[2021-06-07] VITALS (10 sets, daily range): BP systolic 119–158; BP diastolic 60–72; PULSE 80–90; RESP 18–24; TEMP 36.3–36.8; O2SAT 95–97
[2021-06-07] MEDS: Albuterol/Iprat 2.5/0.5MG 3 ML AMPUL.NEB INHALE ×5 (00:07→21:15)
[2021-06-07] MEDS: Acetaminophen 325 MG TABLET 650 MG PO (00:14)
[2021-06-07] MEDS: HYDROmorphone HCl 1 MG/ML SYRINGE 0.25 MG IVPUSH ×3 (03:10→20:50)
[2021-06-07 08:28] LABS: MANUAL DIFF FLAG NO
[2021-06-07 08:29] LABS: Basophils Percent Auto 0.1 % (0-2); Hematocrit 40.4 % (37.0-47.0); Hemoglobin 13.4 g/dl (12.0-16.0); Imm Gran Abs Auto 0.09 X10*3/uL (0.00-0.03); Imm Gran Pct Auto 0.7 % (0.0-0.4); Lymphocytes Absolute Auto 0.8 X10*3/uL (1.2-4.9); Lymphocytes Percent Auto 5.7 % (20-40); Mean Corpuscular HGB Conc 33.2 g/dl (31.0-35.0); Mean Corpuscular Hemoglobin 31.3 pg (27.0-33.0); Mean Corpuscular Volume 94.4 fL (80.0-98.0); Mean Platelet Volume 9.4 fL (9.4-12.3); Monocytes Absolute Auto 0.8 X10*3/uL (0.1-1.2); Monocytes Percent Auto 5.6 % (2-11); Neutrophils Absolute Auto 11.9 x10*3/uL (2.0-8.3); Neutrophils Percent Auto 87.9 % (45-73); Platelet Count 318 X10*3/uL (160-400); Red Blood Count 4.28 X10*6/uL (4.20-5.50); Red Cell Distribution Width 12.4 % (11.0-16.0); White Blood Count 13.5 X10*3/uL (4.8-10.8)
[2021-06-07 08:49] LABS: Anion Gap 12 (12-20); Blood Urea Nitrogen 18 mg/dL (9-16); Calcium 8.5 mg/dL (8.4-10.2); Carbon Dioxide 34 mmol/L (22-29); Chloride 97 mmol/L (96-108); Creatinine Clr Calc Pharmacy 61.5; Estimated Glomerular Filt Rate > 60; Glucose Random 95 mg/dL (60-115); Potassium 4.6 mmol/L (3.3-5.1); Sodium 138 mmol/L (135-145)
[2021-06-07] MEDS: methylPREDNISolone Sod Succ 40 MG/ML VIAL IVPUSH (08:53)
[2021-06-07] MEDS: Atorvastatin Calcium 80 MG TABLET PO (08:53)
[2021-06-07] MEDS: Famotidine/PF 20 MG/2 ML VIAL IVPUSH (08:53)
[2021-06-07] MEDS: Bisoprolol Fumarate 5 MG TABLET PO (08:53)
[2021-06-07] MEDS: Doxycycline Hyclate 100 MG in 0.9 % Sodium Chloride 250 ML 166.67 MG IV ×2 (08:59→20:44)
[2021-06-07 11:17] LABS: Alanine Aminotransferase 20 U/L (0-31); Albumin Level 2.6 g/dL (3.5-5.0); Alkaline Phosphatase 40 U/L (39-117); Aspartate Amino Transferase 31 U/L (5-31); Bilirubin Direct 0.5 mg/dL (0.0-0.5); Bilirubin Total 1.1 mg/dL (0.0-1.0); Total Protein 4.8 g/dL (6.5-8.0)
--- NOTE | 2021-06-07 11:31 | HO.PM.IMPN ---
Subjective Subjective Date of Service: 06/07/21 Interval History: seen and examined this morning follow up for trach placement, tracheitis complaining of leg swelling Review of Systems Review of Systems: Yes all other systems are reviewed and are negative Constitutional Constitutional: Denies chills and Denies fever(s) Cardiovascular Cardiovascular: Denies chest pain Gastrointestinal Gastrointestinal: Denies abdominal pain Physical Exam Vital Signs: Vital Signs: Last Vital Signs Temp 97.9 F 06/07/21 11:24 Pulse 85 06/07/21 11:24 Resp 20 06/07/21 11:24 BP 158/72 H 06/07/21 11:24 Pulse Ox 97 06/07/21 11:24 BMI result Body Mass Index 29.7 Const: Other: able to communicate by mouthing words or writing things down General: cooperative, comfortable, alert and awake Nutritional Appearance: well nourished Orientation/consciousness: patient oriented x3 HENMT: Head: Yes normocephalic and Yes atraumatic Eyes: Sclerae: sclerae normal Resp: Other: diminished; trach in place Effort & Inspection: normal respiratory effort and no respiratory distress Cardio: Rate: regular rate Rhythm: regular rhythm GI: Palpation (GI): Soft to palpation and nontender Neuro: General: patient oriented x3 Cranial nerves: Yes CN's II-XII intact bilaterally and Yes Bilaterally intact EOM present Extrem: Other: left arm swelling, b/l lower extremity edema Objective Data Active Medications Acetaminophen (Acetaminophen 325 Mg Tablet) 650 mg PO Q6H PRN PRN Reason: Pain, Mild (Pain Scale 1-3) Last Admin: 06/07/21 00:14 Dose: 650 mg Documented by: GIGI Albuterol/Ipratropium (Albuterol/Iprat 2.5/0.5mg 3 Ml Ampul.Neb) 3 ml INHALE RQ4H WHILE AWAKE [facility] Last Admin: 06/07/21 08:17 Dose: 3 ml Documented by: LEO Albuterol/Ipratropium (Albuterol/Iprat 2.5/0.5mg 3 Ml Ampul.Neb) 3 ml INHALE RQ4H PRN PRN Reason: sob, wheezing Last Admin: 06/07/21 06:00 Dose: 3 ml Documented by: MARVA Atorvastatin Calcium (Atorvastatin Calcium 80 Mg Tablet) 80 mg PO DAILY [facility] Last Admin: 06/07/21 08:53 Dose: 80 mg Documented by: RUTHY Bisoprolol Fumarate (Bisoprolol Fumarate 5 Mg Tablet) 5 mg PO DAILY [facility] Last Admin: 06/07/21 08:53 Dose: 5 mg Documented by: RUTHY Famotidine (Famotidine/Pf 20 Mg/2 Ml Vial) 20 mg IVPUSH DAILY [facility] Last Admin: 06/07/21 08:53 Dose: 20 mg Documented by: RUTHY Hydromorphone HCl (Hydromorphone Hcl 1 Mg/Ml Syringe) 0.25 mg IVPUSH Q4H PRN; Protocol PRN Reason: Pain, Mild (Pain Scale 1-3) Last Admin: 06/07/21 09:17 Dose: 0.25 mg Documented by: RUTHY Doxycycline Hyclate 100 mg/ (Sodium Chloride) 250 mls @ 166.67 mls/hr IV Q12H [facility] Last Infusion: 06/07/21 11:21 Dose: 0 mls/hr Documented by: RUTHY Levofloxacin (Levaquin) 500 mg in 100 mls @ 100 mls/hr IV Q24H [facility] Last Infusion: 06/06/21 13:59 Dose: 0 mls/hr Documented by: AUSTEN Methylprednisolone Sodium Succinate (Methylprednisolone Sod Succ 40 Mg/Ml Vial) 40 mg IVPUSH Q12H [facility] Last Admin: 06/07/21 08:53 Dose: 40 mg Documented by: RUTHY Omeprazole (Omeprazole 20 Mg/10 Ml Susp.Recon) 10 mg PO DAILY@0630 [facility] Last Admin: 06/07/21 05:37 Dose: 10 mg Documented by: GIGI Vitamin D (Cholecalciferol (Vitamin D3) 25 Mcg Tablet) 50 mcg PO Q2D [facility] Last Admin: 06/05/21 18:37 Dose: 50 mcg Documented by: DORON Labs CBC & Chem 7: 06/07/21 08:19 06/07/21 08:19 Labs: Laboratory Results - last 24 hr 06/07/21 06/07/21 08:19 08:19 MCV 94.4 MCH 31.3 MCHC 33.2 RDW 12.4 Plt Count 318 MPV 9.4 Immature Gran % (Auto) 0.7 H Neut % (Auto) 87.9 H Lymph % (Auto) 5.7 L [place] % (Auto) 5.6 Eos % (Auto) 0.0 Baso % (Auto) 0.1 Lymph # (Auto) 0.8 L [place] # (Auto) 0.8 Eos # (Auto) 0.0 Baso # (Auto) 0.0 Abs Immat Gran (auto) 0.09 H Absolute Neuts (auto) 11.9 H Absolute Nucleated RBC 0.000 Nucleated RBC % (auto) 0.0 Anion Gap 12 Estim Creat Clear Calc 61.5 Estimated GFR > 60 Random Glucose 95 Calcium 8.5 Total Bilirubin 1.1 H Direct Bilirubin 0.5 AST 31 ALT 20 Alkaline Phosphatase 40 Total Protein 4.8 L Albumin 2.6 L Assessment and Plan (1) Tracheitis: Status: Acute (2) Tracheostomy dependence: Status: Acute Assessment and Plan: ICU course :80-year-old female with coronary disease an episode of Takotsubo? cardiomyopathy that resolved to a normal ejection fraction and an underlying hypertensive and COPD patient who had a tracheostomy 2 and half years ago and since D cannulated and nonhealing stoma brought in electively 2 days ago to have a flap closure done by CT surgery the surgery went successfully extubated doing well at 15-20 minutes later following a did a deep cough she developed severe respiratory distress unable to move air became dense lead cyanotic with subcutaneous air and had a clear-cut acute pneumomediastinum and the no the question of course is whether not the might have been a bleed hematoma but 1 way of the other required emergent reopening of the tracheostomy placement of a 8. Cuffed tube and she was on the ventilator and weaned spent 6 hours yesterday on a a tracheostomy cuff and today as well so currently has the balloon down and is on the tracheostomy cuff with oxygen saturations in the mid 90s respiratory rates in the 20s without any respiratory effort or distress did not have her swallow evaluation and the strict instructions from Cardiothoracic surgery was not to touch the tube until the site heals completely and that is weeks down the line so apparently this is not going to be replaced by a down sized tube at any point so some evaluation in the next 1 or 2 days possibly in conjunction with Dr. Caba is a advice needs to take place as far as the ability to feed and she is refusing a PEG tube ultimately she said she would agree to an NG tube for feeding purposes if need be. Doing well stable under 7 hours of observation on a trach cuff with low FiO2 in the 30% range L flow at about the 7-8 liters/minute no respiratory distress no stridor with the cuff down and this is a 8.? Tracheostomy tube and cardiothoracic surgery will follow at least from a distance but does not want to tube replaced or tampered with at at this point in time s/p emergent Tracheostomy 05/25 due to progressive hypoxia following tracheal closure Stable, with trach mask on, CT surgery following repeat cxr from 06/01 unremarkable seen by pulmonology, diagnosed with tracheitis, continue IV levaquin and doxycycline day 11/22 sputum culture mixed speech re-eval rec ground diet, total supervision, thin liquids, if issues persist with aspiration consider MBBS Seen by Dr. Burris, barrelhead inspector, [place] 8 cuffed tracheostomy changed at the bedside over bougie to [place] 8 uncuffed tracheostomy with no complications. Plan for pulmonary rehab in the next 1-2 days leg edema/LUE edema will check US to rule out DVT check albumin acute COPD exacerbation continue scheduled breathing treatments change solu-medrol to po prednisone Hypertension stable blood pressure DISPO to [facility] when bed available DVT prophylaxis with mechanical devices Attending Dr. Love Full code Quality Stroke Does the patient have a stroke diagnosis?: No VTE Prior VTE?: No VTE Risk Level:: Medical - moderate - high VTE Device Contraindication: N/A - Device Ordered VTE Drug Contraindication: Treatment Not Indicated
[2021-06-07] MEDS: levoFLOXacin/D5W 500 MG/100 ML PIGGYBACK 100 MG IV (11:34)
--- NOTE | 2021-06-07 11:48 | MHC.CM.PN ---
Addendum entered by Jessika Simpson 06/07/21 12:52: [facility] IS CLOSED TO ADMISSIONS[facility] DOES NOT HAVE A BED TODAY BUT WILL FOLLOW UP WITH DISCHARGES ON FRIDAY Original Note: [facility] REFERRALS UPDATED TO INFORM OF ATTEMPT TO DISCHARGE PATIENT TO REHAB TODAY
--- NOTE | 2021-06-07 16:03 | MHC.SLORD ---
Speech Language Pathology Order Status: Attempted to see Pt this a.m. and p.m. In a.m., Pt reported feeling uncomfortable/unwell, did not want to eat. In the p.m. Pt was waiting for Resp. therapy, declined METAL SASH SETTER/Swallow treatment. Case Mgt. note indicates likely d/c to rehab tomorrow. Will attempt to see a.m.
[2021-06-07] MEDS: Furosemide 40 MG/4 ML VIAL IVPUSH (17:48)
[2021-06-07] MEDS: Albumin Human 25 % 100 ML IV (17:51)
[2021-06-07] MEDS: Cholecalciferol (Vitamin D3) 25 MCG TABLET 50 MCG PO (18:24)
[2021-06-07] MEDS: polyethylene glycoL 3350 17 GM POWD.PACK PO (19:10)
[2021-06-07] MEDS: Docusate Sodium 100 MG CAPSULE PO (20:44)
[2021-06-08] VITALS (9 sets, daily range): BP systolic 119–135; BP diastolic 58–70; PULSE 71–98; RESP 17–18; TEMP 36.1–37.3; O2SAT 94–99
[2021-06-08] MEDS: Acetaminophen 325 MG TABLET 650 MG PO (01:17)
[2021-06-08] MEDS: HYDROmorphone HCl 1 MG/ML SYRINGE 0.25 MG IVPUSH ×2 (04:09→09:49)
[2021-06-08 05:42] LABS: MANUAL DIFF FLAG NO
[2021-06-08 05:53] LABS: Basophils Percent Auto 0.1 % (0-2); Eosinophils Percent Auto 0.1 % (0-4); Hematocrit 39.4 % (37.0-47.0); Hemoglobin 13.2 g/dl (12.0-16.0); Imm Gran Abs Auto 0.07 X10*3/uL (0.00-0.03); Imm Gran Pct Auto 0.5 % (0.0-0.4); Lymphocytes Absolute Auto 2.4 X10*3/uL (1.2-4.9); Lymphocytes Percent Auto 16.8 % (20-40); Mean Corpuscular HGB Conc 33.5 g/dl (31.0-35.0); Mean Corpuscular Hemoglobin 31.2 pg (27.0-33.0); Mean Corpuscular Volume 93.1 fL (80.0-98.0); Mean Platelet Volume 9.5 fL (9.4-12.3); NRBC Pct Auto 0.1 /100WBC (0.0-0.2); Neutrophils Absolute Auto 10.6 x10*3/uL (2.0-8.3); Neutrophils Percent Auto 75.5 % (45-73); Platelet Count 323 X10*3/uL (160-400); Red Blood Count 4.23 X10*6/uL (4.20-5.50); Red Cell Distribution Width 12.2 % (11.0-16.0); White Blood Count 14.1 X10*3/uL (4.8-10.8)
[2021-06-08 06:24] LABS: Anion Gap 11 (12-20); Blood Urea Nitrogen 17 mg/dL (9-16); Carbon Dioxide 37 mmol/L (22-29); Chloride 91 mmol/L (96-108); Creatinine Clr Calc Pharmacy 64.4; Estimated Glomerular Filt Rate > 60; Glucose Random 77 mg/dL (60-115); Potassium 3.6 mmol/L (3.3-5.1); Sodium 135 mmol/L (135-145)
[2021-06-08] MEDS: Albuterol/Iprat 2.5/0.5MG 3 ML AMPUL.NEB INHALE ×3 (08:14→20:46)
[2021-06-08] MEDS: Atorvastatin Calcium 80 MG TABLET PO (09:48)
[2021-06-08] MEDS: polyethylene glycoL 3350 17 GM POWD.PACK PO (09:48)
[2021-06-08] MEDS: predniSONE 20 MG TABLET 40 MG PO (09:48)
[2021-06-08] MEDS: Famotidine/PF 20 MG/2 ML VIAL IVPUSH (09:48)
[2021-06-08] MEDS: Bisoprolol Fumarate 5 MG TABLET PO (09:48)
--- NOTE | 2021-06-08 11:18 | P.PNIM_ITS ---
Subjective Subjective Date of Service: 06/08/21 Interval History: seen and examined this morning breathing at baseline, no shortness of breath reports some improvement in swelling after lasix and albumin yesterday Review of Systems Review of Systems: Yes all other systems are reviewed and are negative Constitutional Constitutional: Denies chills and Denies fever(s) Cardiovascular Cardiovascular: Denies chest pain Gastrointestinal Gastrointestinal: Denies abdominal pain Physical Exam Vital Signs: Vital Signs: Last Vital Signs Temp 98.4 F 06/08/21 07:55 Pulse 78 06/08/21 08:14 Resp 18 06/08/21 09:49 BP 134/62 06/08/21 07:55 Pulse Ox 97 06/08/21 07:55 BMI result Body Mass Index 29.7 Const: Other: able to communicate by mouthing words or writing things down General: cooperative, comfortable, alert and awake Nutritional Appearance: well nourished Orientation/consciousness: patient oriented x3 HENMT: Head: Yes normocephalic and Yes atraumatic Eyes: Sclerae: sclerae normal Resp: Other: diminished; trach in place Effort & Inspection: normal respiratory effort and no respiratory distress Cardio: Rate: regular rate Rhythm: regular rhythm GI: Inspection: No distended Palpation (GI): Soft to palpation and nontender Neuro: General: patient oriented x3 Cranial nerves: Yes CN's II-XII intact bilaterally and Yes Bilaterally intact EOM present Extrem: Other: left arm swelling, b/l lower extremity edema Objective Data Active Medications Acetaminophen (Acetaminophen 325 Mg Tablet) 650 mg PO Q6H PRN PRN Reason: Pain, Mild (Pain Scale 1-3) Last Admin: 06/08/21 01:17 Dose: 650 mg Documented by: DESI Albuterol/Ipratropium (Albuterol/Iprat 2.5/0.5mg 3 Ml Ampul.Neb) 3 ml INHALE RQ4H WHILE AWAKE [facility] Last Admin: 06/08/21 08:14 Dose: 3 ml Documented by: DRAKE Albuterol/Ipratropium (Albuterol/Iprat 2.5/0.5mg 3 Ml Ampul.Neb) 3 ml INHALE RQ4H PRN PRN Reason: sob, wheezing Last Admin: 06/07/21 06:00 Dose: 3 ml Documented by: MARVA Atorvastatin Calcium (Atorvastatin Calcium 80 Mg Tablet) 80 mg PO DAILY [facility] Last Admin: 06/08/21 09:48 Dose: 80 mg Documented by: ALBINA Bisoprolol Fumarate (Bisoprolol Fumarate 5 Mg Tablet) 5 mg PO DAILY [facility] Last Admin: 06/08/21 09:48 Dose: 5 mg Documented by: ALBINA Docusate Sodium (Docusate Sodium 100 Mg Capsule) 100 mg PO BEDTIME [facility] Last Admin: 06/07/21 20:44 Dose: 100 mg Documented by: DESI Famotidine (Famotidine/Pf 20 Mg/2 Ml Vial) 20 mg IVPUSH DAILY [facility] Last Admin: 06/08/21 09:48 Dose: 20 mg Documented by: ALBINA Furosemide (Furosemide 40 Mg Tablet) 40 mg PO DAILY [facility]; Protocol Hydromorphone HCl (Hydromorphone Hcl 1 Mg/Ml Syringe) 0.25 mg IVPUSH Q4H PRN; Protocol PRN Reason: Pain, Mild (Pain Scale 1-3) Last Admin: 06/08/21 09:49 Dose: 0.25 mg Documented by: ALBINA Omeprazole (Omeprazole 20 Mg/10 Ml Susp.Recon) 10 mg PO DAILY@0630 [facility] Last Admin: 06/08/21 06:14 Dose: 10 mg Documented by: DESI Polyethylene Glycol (Polyethylene Glycol 3350 17 Gm Powd.Pack) 17 gm PO DAILY [facility] Last Admin: 06/08/21 09:48 Dose: 17 gm Documented by: ALBINA Prednisone (Prednisone 20 Mg Tablet) 40 mg PO DAILY [facility] Last Admin: 06/08/21 09:48 Dose: 40 mg Documented by: ALBINA Vitamin D (Cholecalciferol (Vitamin D3) 25 Mcg Tablet) 50 mcg PO Q2D [facility] Last Admin: 06/07/21 18:24 Dose: 50 mcg Documented by: RUTHY Labs CBC & Chem 7: 06/08/21 05:24 06/08/21 05:24 Labs: Laboratory Results - last 24 hr 06/08/21 06/08/21 05:24 05:24 MCV 93.1 MCH 31.2 MCHC 33.5 RDW 12.2 Plt Count 323 MPV 9.5 Immature Gran % (Auto) 0.5 H Neut % (Auto) 75.5 H Lymph % (Auto) 16.8 L [place] % (Auto) 7.0 Eos % (Auto) 0.1 Baso % (Auto) 0.1 Lymph # (Auto) 2.4 [place] # (Auto) 1.0 Eos # (Auto) 0.0 Baso # (Auto) 0.0 Abs Immat Gran (auto) 0.07 H Absolute Neuts (auto) 10.6 H Absolute Nucleated RBC 0.020 H Nucleated RBC % (auto) 0.1 Anion Gap 11 L Estim Creat Clear Calc 64.4 Estimated GFR > 60 Random Glucose 77 Calcium 9.0 Assessment and Plan (1) Tracheitis: Status: Acute (2) Acquired pneumomediastinum: Status: Acute (3) HTN (hypertension): Status: Acute Assessment and Plan: ICU course :80-year-old female with coronary disease an episode of Takotsubo? ca rdiomyopathy that resolved to a normal ejection fraction and an underlying hypertensive and COPD patient who had a tracheostomy 2 and half years ago and since D cannulated and nonhealing stoma brought in electively 2 days ago to have a flap closure done by CT surgery the surgery went successfully extubated doing well at 15-20 minutes later following a did a deep cough she developed severe respiratory distress unable to move air became dense lead cyanotic with subcutaneous air and had a clear-cut acute pneumomediastinum and the no the question of course is whether not the might have been a bleed hematoma but 1 way of the other required emergent reopening of the tracheostomy placement of a 8. Cuffed tube and she was on the ventilator and weaned spent 6 hours yesterday on a a tracheostomy cuff and today as well so currently has the balloon down and is on the tracheostomy cuff with oxygen saturations in the mid 90s respiratory rates in the 20s without any respiratory effort or distress did not have her swallow evaluation and the strict instructions from Cardiothoracic surgery was not to touch the tube until the site heals completely and that is weeks down the line so apparently this is not going to be replaced by a down sized tube at any point so some evaluation in the next 1 or 2 days possibly in conjunction with Dr. Caba is a advice needs to take place as far as the ability to feed and she is refusing a PEG tube ultimately she said she would agree to an NG tube for feeding purposes if need be. Doing well stable under 7 hours of observation on a trach cuff with low FiO2 in the 30% range L flow at about the 7-8 liters/minute no respiratory distress no stridor with the cuff down and this is a 8.? Tracheostomy tube and cardiothoracic [facility] but does not want to tube replaced or tampered with at at this point in time s/p emergent Tracheostomy 05/25 due to progressive hypoxia following tracheal closure Stable, with trach mask on, CT surgery following repeat cxr from 06/01 unremarkable seen by pulmonology, diagnosed with tracheitis, continue IV levaquin and doxycycline day 11/22 sputum culture mixed speech re-eval rec ground diet, total supervision, thin liquids, if issues persist with aspiration consider MBBS Seen by Dr. Burris, human anatomy teacher, [place] 8 cuffed tracheostomy changed at the bedside over bougie to [place] 8 uncuffed tracheostomy with no complications. anasarca no evidence of DVT likely related to poor nutritional status, albumin low improved somewhat with lasix and albumin continue few days of po lasix, nutritional supplements acute COPD exacerbation continue scheduled breathing treatments change solu-medrol to po prednisone Hypertension stable blood pressure constipation bowel regimen DISPO to pulmonary rehab when bed available DVT prophylaxis with subq heparin Attending Dr. Love Full code Quality Stroke Does the patient have a stroke diagnosis?: No VTE Prior VTE?: No VTE Risk Level:: Medical - moderate - high VTE Device Contraindication: N/A - Device Ordered VTE Drug Contraindication: Treatment Not Indicated
--- NOTE | 2021-06-08 11:25 | MHC.CM.PN ---
Addendum entered by Jessika Simpson 06/08/21 13:55: [facility] IS REVIEWING FOR A BED OFFER.IF ACCEPTED, AND A BED IS AVAILABLE, FACILITY WILL ATTEMPT AUTH. Original Note: PATIENT DOES NOT YET HAVE A BED OFFER. REFERRAL NOW PLACED TO [facility] CONTINUING TO FOLLOW
[2021-06-08] MEDS: Furosemide 40 MG TABLET PO (12:20)
[2021-06-08] MEDS: Heparin Sodium,Porcine 5,000 UNIT/ML VIAL 5000 UNIT SUBCUT (12:20)
--- NOTE | 2021-06-08 14:47 | MHC.CLN ---
F/U DIET=2 GRAM SODIUM, NDD2 WITH THIN LIQUIDS. ENSURE BID PROVIDES 700 KCAL, 26-40 G PROTEIN. INTAKE X 3 DAYS APPEARS IMPROVED WITH 5 MEALS X 100%. CONTINUE TO FOLLOW DIET TOLERANCE AND INTAKE.
[2021-06-08] MEDS: Docusate Sodium 100 MG CAPSULE PO (20:37)
[2021-06-09] VITALS (10 sets, daily range): BP systolic 91–135; BP diastolic 50–63; PULSE 71–86; RESP 15–24; TEMP 36.6–37.4; O2SAT 94–99
[2021-06-09] MEDS: Heparin Sodium,Porcine 5,000 UNIT/ML VIAL 5000 UNIT SUBCUT ×3 (01:03→23:32)
[2021-06-09] MEDS: Acetaminophen 325 MG TABLET 650 MG PO (01:06)
[2021-06-09] MEDS: Albuterol/Iprat 2.5/0.5MG 3 ML AMPUL.NEB INHALE ×6 (01:12→23:40)
[2021-06-09] MEDS: Furosemide 20 MG TABLET PO (05:52)
[2021-06-09 06:32] LABS: Anion Gap 14 (12-20); Blood Urea Nitrogen 18 mg/dL (9-16); Calcium 8.8 mg/dL (8.4-10.2); Carbon Dioxide 35 mmol/L (22-29); Chloride 90 mmol/L (96-108); Creatinine Clr Calc Pharmacy 65.5; Estimated Glomerular Filt Rate > 60; Glucose Random 87 mg/dL (60-115); Potassium 3.8 mmol/L (3.3-5.1); Sodium 135 mmol/L (135-145)
[2021-06-09] MEDS: HYDROmorphone HCl 1 MG/ML SYRINGE 0.25 MG IVPUSH ×2 (06:50→10:53)
[2021-06-09] MEDS: predniSONE 20 MG TABLET 40 MG PO (10:10)
[2021-06-09] MEDS: Atorvastatin Calcium 80 MG TABLET PO (10:10)
[2021-06-09] MEDS: Famotidine/PF 20 MG/2 ML VIAL IVPUSH (10:12)
[2021-06-09] MEDS: Bisoprolol Fumarate 5 MG TABLET PO (10:12)
[2021-06-09] MEDS: polyethylene glycoL 3350 17 GM POWD.PACK PO (10:16)
--- NOTE | 2021-06-09 10:49 | P.PNIM_ITS ---
Subjective Subjective Date of Service: 06/10/21 Review of Systems seen and examined this morning breathing at baseline, no shortness of breath reports some improvement in swelling after lasix and albumin yesterday Physical Exam Verdana 4l Vital Signs: Verdana 4d Verdana 4d Vital Signs: Verdana 4d Verdana 4Bd Last Vital Signs Verdana 4d Aquaculture Director New 4d Aquaculture Director New 4d Temp 98.3 F 06/09/21 08:00 Aquaculture Director New 4d Pulse 77 06/09/21 08:25 Aquaculture Director NewNew 4d Resp 18 06/09/21 08:25 BP 107/53 L 06/09/21 08:00 Pulse Ox 99 06/09/21 08:00 BMI result Body Mass Index 29.7 Appearing in no acute distress lung sounds are clear to auscultation, trach present heart regular rate rhythm, clear S1, S2 positive bowel sounds, abdomen is soft, nontender neuro patient is alert x3, no focal deficits Objective Data Active Medications Acetaminophen (Acetaminophen 325 Mg Tablet) 650 mg PO Q6H PRN PRN Reason: Pain, Mild (Pain Scale 1-3) Last Admin: 06/09/21 01:06 Dose: 650 mg Documented by: YOMI Albuterol/Ipratropium (Albuterol/Iprat 2.5/0.5mg 3 Ml Ampul.Neb) 3 ml INHALE RQ4H WHILE AWAKE [facility] Last Admin: 06/09/21 08:23 Dose: 3 ml Documented by: TYESHA Albuterol/Ipratropium (Albuterol/Iprat 2.5/0.5mg 3 Ml Ampul.Neb) 3 ml INHALE RQ4H PRN PRN Reason: sob, wheezing Last Admin: 06/09/21 05:53 Dose: 3 ml Documented by: YOMI Atorvastatin Calcium (Atorvastatin Calcium 80 Mg Tablet) 80 mg PO DAILY [facility] Last Admin: 06/09/21 10:10 Dose: 80 mg Documented by: WAI Bisoprolol Fumarate (Bisoprolol Fumarate 5 Mg Tablet) 5 mg PO DAILY [facility] Last Admin: 06/09/21 10:12 Dose: 5 mg Documented by: WAI Docusate Sodium (Docusate Sodium 100 Mg Capsule) 100 mg PO BEDTIME [facility] Last Admin: 06/08/21 20:37 Dose: 100 mg Documented by: YOMI Famotidine (Famotidine/Pf 20 Mg/2 Ml Vial) 20 mg IVPUSH DAILY [facility] Last Admin: 06/09/21 10:12 Dose: 20 mg Documented by: WAI Furosemide (Furosemide 20 Mg Tablet) 20 mg PO DAILY [facility]; Protocol Last Admin: 06/09/21 05:52 Dose: 20 mg Documented by: YOMI Heparin Sodium (Porcine) (Heparin Sodium,Porcine 5,000 Unit/Ml Vial) 5,000 unit SUBCUT Q12H [facility] Last Admin: 06/09/21 01:03 Dose: 5,000 unit Documented by: YOMI Hydromorphone HCl (Hydromorphone Hcl 1 Mg/Ml Syringe) 0.25 mg IVPUSH Q4H PRN; Protocol PRN Reason: Pain, Mild (Pain Scale 1-3) Last Admin: 06/09/21 06:50 Dose: 0.25 mg Documented by: YOMI Omeprazole (Omeprazole 20 Mg/10 Ml Susp.Recon) 10 mg PO DAILY@0630 [facility] Last Admin: 06/09/21 05:23 Dose: 10 mg Documented by: YOMI Polyethylene Glycol (Polyethylene Glycol 3350 17 Gm Powd.Pack) 17 gm PO DAILY [facility] Last Admin: 06/09/21 10:16 Dose: 17 gm Documented by: WAI Prednisone (Prednisone 20 Mg Tablet) 40 mg PO DAILY [facility] Last Admin: 06/09/21 10:10 Dose: 40 mg Documented by: WAI Vitamin D (Cholecalciferol (Vitamin D3) 25 Mcg Tablet) 50 mcg PO Q2D [facility] Last Admin: 06/07/21 18:24 Dose: 50 mcg Documented by: RUTHY Labs CBC & Chem 7: 06/08/21 05:24 06/09/21 06:06 Labs: Laboratory Results - last 24 hr 06/09/21 06:06 Anion Gap 14 Estim Creat Clear Calc 65.5 Estimated GFR > 60 Random Glucose 87 Calcium 8.8 Assessment and Plan (1) Tracheitis: Status: Acute Assessment and Plan: ICU course :80-year-old female with coronary disease an episode of Takotsubo? cardiomyopathy that resolved to a normal ejection fraction and an underlying hypertensive and COPD patient who had a tracheostomy 2 and half years ago and since D cannulated and nonhealing stoma brought in electively 2 days ago to have a flap closure done by CT surgery the surgery went successfully extubated doing well at 15-20 minutes later following a did a deep cough she developed severe respiratory distress unable to move air became dense lead cyanotic with subcutaneous air and had a clear-cut acute pneumomediastinum and the no the question of course is whether not the might have been a bleed hematoma but 1 way of the other required emergent reopening of the tracheostomy placement of a 8. Cuffed tube and she was on the ventilator and weaned spent 6 hours yesterday on a a tracheostomy cuff and today as well so currently has the balloon down and is on the tracheostomy cuff with oxygen saturations in the mid 90s respiratory rates in the 20s without any respiratory effort or distress did not have her swallow evaluation and the strict instructions from Cardiothoracic surgery was not to touch the tube until the site heals completely and that is weeks down the line so apparently this is not going to be replaced by a down sized tube at any point so some evaluation in the next 1 or 2 days possibly in conjunction with Dr. Caba is a advice needs to take place as far as the ability to feed and she is refusing a PEG tube ultimately she said she would agree to an NG tube for feeding purposes if need be. Doing well stable under 7 hours of observation on a trach cuff with low FiO2 in the 30% range L flow at about the 7-8 liters/minute no respiratory distress no stridor with the cuff down and this is a 8.? Tracheostomy tube and cardiothoracic surgery will follow at least from a distance but does not want to tube replaced or tampered with at at this point in time s/p emergent Tracheostomy 05/25 due to progressive hypoxia following tracheal closure Stable, with trach mask on, CT surgery following repeat cxr from 06/01 unremarkable seen by pulmonology, diagnosed with tracheitis, continue IV levaquin and doxycycline day 11/22 sputum culture mixed speech re-eval rec ground diet, total supervision, thin liquids, if issues persist with aspiration consider MBBS Seen by Dr. Burris, vaccine manager, [place] 8 cuffed tracheostomy changed at the bedside over bougie to [place] 8 uncuffed tracheostomy with no complications. anasarca no evidence of DVT likely related to poor nutritional status, albumin low improved somewhat with lasix and albumin continue few days of po lasix, nutritional supplements acute COPD exacerbation continue scheduled breathing treatments change solu-medrol to po prednisone Hypertension stable blood pressure constipation bowel regimen DISPO? to pulmonary rehab when bed available DVT prophylaxis with subq heparin Attending Dr. Arrieta Full code Quality Stroke Does the patient have a stroke diagnosis?: No VTE Prior VTE?: No VTE Risk Level:: Medical - moderate - high VTE Device Contraindication: N/A - Device Ordered VTE Drug Contraindication: Treatment Not Indicated
[2021-06-09] MEDS: Cholecalciferol (Vitamin D3) 25 MCG TABLET 50 MCG PO (18:42)
[2021-06-09] MEDS: Docusate Sodium 100 MG CAPSULE PO (21:33)
[2021-06-10] VITALS (12 sets, daily range): BP systolic 109–135; BP diastolic 55–67; PULSE 68–100; RESP 16–21; TEMP 36.1–37.5; O2SAT 95–99
[2021-06-10] MEDS: Acetaminophen 325 MG TABLET 650 MG PO ×2 (00:28→13:35)
--- NOTE | 2021-06-10 03:18 | PC.NURSE ---
pt c/o constipation.requesting an enema.states no bm since may 23. notified.ordered [id number].500CC given yash well.had mod soft brown stool on bedpan
[2021-06-10] MEDS: Albuterol/Iprat 2.5/0.5MG 3 ML AMPUL.NEB INHALE ×6 (05:01→23:48)
[2021-06-10] MEDS: predniSONE 20 MG TABLET 40 MG PO (09:25)
[2021-06-10] MEDS: Bisoprolol Fumarate 5 MG TABLET PO (09:25)
[2021-06-10] MEDS: polyethylene glycoL 3350 17 GM POWD.PACK PO (09:25)
[2021-06-10] MEDS: Furosemide 20 MG TABLET PO (09:25)
[2021-06-10] MEDS: Atorvastatin Calcium 80 MG TABLET PO (09:25)
[2021-06-10] MEDS: Famotidine/PF 20 MG/2 ML VIAL IVPUSH (09:25)
--- NOTE | 2021-06-10 09:57 | P.PNIM_ITS ---
Subjective Subjective Date of Service: 06/10/21 Review of Systems seen and examined this morning breathing at baseline, no shortness of breath reports some improvement in swelling after lasix and albumin yesterday Physical Exam Vital Signs: Vital Signs: Last Vital Signs Temp 98.2 F 06/10/21 07:41 Pulse 80 06/10/21 08:22 Resp 16 06/10/21 08:22 BP 127/60 06/10/21 07:41 Pulse Ox 99 06/10/21 07:41 BMI result Body Mass Index 29.7 Appearing in no acute distress lung sounds are clear to auscultation, trach heart regular rate rhythm, clear S1, S2 positive bowel sounds, abdomen is soft, nontender neuro patient is alert x3, no focal deficits Objective Data Active Medications Acetaminophen (Acetaminophen 325 Mg Tablet) 650 mg PO Q6H PRN PRN Reason: Pain, Mild (Pain Scale 1-3) Last Admin: 06/10/21 00:28 Dose: 650 mg Documented by: YOMI Albuterol/Ipratropium (Albuterol/Iprat 2.5/0.5mg 3 Ml Ampul.Neb) 3 ml INHALE RQ4H WHILE AWAKE [facility] Last Admin: 06/10/21 08:22 Dose: 3 ml Documented by: KAMERON Albuterol/Ipratropium (Albuterol/Iprat 2.5/0.5mg 3 Ml Ampul.Neb) 3 ml INHALE RQ4H PRN PRN Reason: sob, wheezing Last Admin: 06/10/21 05:01 Dose: 3 ml Documented by: YOMI Atorvastatin Calcium (Atorvastatin Calcium 80 Mg Tablet) 80 mg PO DAILY [facility] Last Admin: 06/10/21 09:25 Dose: 80 mg Documented by: RONAL Bisoprolol Fumarate (Bisoprolol Fumarate 5 Mg Tablet) 5 mg PO DAILY [facility] Last Admin: 06/10/21 09:25 Dose: 5 mg Documented by: RONAL Docusate Sodium (Docusate Sodium 100 Mg Capsule) 100 mg PO BEDTIME [facility] Last Admin: 06/09/21 21:33 Dose: 100 mg Documented by: YOMI Famotidine (Famotidine/Pf 20 Mg/2 Ml Vial) 20 mg IVPUSH DAILY [facility] Last Admin: 06/10/21 09:25 Dose: 20 mg Documented by: RONAL Furosemide (Furosemide 20 Mg Tablet) 20 mg PO DAILY [facility]; Protocol Last Admin: 06/10/21 09:25 Dose: 20 mg Documented by: RONAL Heparin Sodium (Porcine) (Heparin Sodium,Porcine 5,000 Unit/Ml Vial) 5,000 unit SUBCUT Q12H [facility] Last Admin: 06/09/21 23:32 Dose: 5,000 unit Documented by: YOMI Hydromorphone HCl (Hydromorphone Hcl 1 Mg/Ml Syringe) 0.25 mg IVPUSH Q4H PRN; Protocol PRN Reason: Pain, Mild (Pain Scale 1-3) Last Admin: 06/09/21 10:53 Dose: 0.25 mg Documented by: WAI Omeprazole (Omeprazole 20 Mg/10 Ml Susp.Recon) 10 mg PO DAILY@0630 [facility] Last Admin: 06/10/21 05:06 Dose: 10 mg Documented by: YOMI Polyethylene Glycol (Polyethylene Glycol 3350 17 Gm Powd.Pack) 17 gm PO DAILY [facility] Last Admin: 06/10/21 09:25 Dose: 17 gm Documented by: RONAL Prednisone (Prednisone 20 Mg Tablet) 40 mg PO DAILY [facility] Last Admin: 06/10/21 09:25 Dose: 40 mg Documented by: RONAL Vitamin D (Cholecalciferol (Vitamin D3) 25 Mcg Tablet) 50 mcg PO Q2D [facility] Last Admin: 06/09/21 18:42 Dose: 50 mcg Documented by: WAI Labs CBC & Chem 7: 06/08/21 05:24 06/09/21 06:06 Assessment and Plan (1) Tracheitis: Status: Acute Assessment and Plan: ICU course :80-year-old female with coronary disease an episode of Takotsubo? cardiomyopathy that resolved to a normal ejection fraction and an underlying hypertensive and COPD patient who had a tracheostomy 2 and half years ago and since D cannulated and nonhealing stoma brought in electively 2 days ago to have a flap closure done by CT surgery the surgery went successfully extubated doing well at 15-20 minutes later following a did a deep cough she developed severe respiratory distress unable to move air became dense lead cyanotic with subcu taneous air and had a clear-cut acute pneumomediastinum and the no the question of course is whether not the might have been a bleed hematoma but 1 way of the other required emergent reopening of the tracheostomy placement of a 8. Cuffed tube and she was on the ventilator and weaned spent 6 hours yesterday on a a tracheostomy cuff and today as well so currently has the balloon down and is on the tracheostomy cuff with oxygen saturations in the mid 90s respiratory rates in the 20s without any respiratory effort or distress did not have her swallow evaluation and the strict instructions from Cardiothoracic surgery was not to touch the tube until the site heals completely and that is weeks down the line so apparently this is not going to be replaced by a down sized tube at any point so some evaluation in the next 1 or 2 days possibly in conjunction with Dr. Caba is a advice needs to take place as far as the ability to feed and she is refusing a PEG tube ultimately she said she would agree to an NG tube for feeding purposes if need be. Doing well stable under 7 hours of observation on a trach cuff with low FiO2 in the 30% range L flow at about the 7-8 liters/minute no respiratory distress no stridor with the cuff down and this is a 8.? Tracheostomy tube and cardiothoracic surgery will follow at least from a distance but does not want to tube replaced or tampered with at at this point in time s/p emergent Tracheostomy 05/25 due to progressive hypoxia following tracheal closure Stable, with trach mask on seen by pulmonology, diagnosed with tracheitis, completed treatment with Le vaquin and doxycycline Seen by Dr. Burris, shut off worker, [place] 8 cuffed tracheostomy changed at the bedside over bougie to [place] 8 uncuffed tracheostomy with no complications. anasarca. improving no evidence of DVT likely related to poor nutritional status, albumin low improved somewhat with lasix and albumin continue few days of po lasix, nutritional supplements acute COPD exacerbation. resolved continue scheduled breathing treatments change solu-medrol to po prednisone Hypertension stable blood pressure constipation bowel regimen DISPO? to pulmonary rehab when bed available DVT prophylaxis with subq heparin Attending Full code Quality Stroke Does the patient have a stroke diagnosis?: No VTE Prior VTE?: No VTE Risk Level:: Medical - moderate - high VTE Device Contraindication: N/A - Device Ordered VTE Drug Contraindication: Treatment Not Indicated
[2021-06-10] MEDS: Heparin Sodium,Porcine 5,000 UNIT/ML VIAL 5000 UNIT SUBCUT (13:14)
[2021-06-10] MEDS: Docusate Sodium 100 MG CAPSULE PO (19:55)
[2021-06-10] MEDS: bisacodyL 5 MG TABLET.DR 10 MG PO (19:55)
[2021-06-10] MEDS: Melatonin 3 MG TABLET 6 MG PO (19:55)
[2021-06-11] VITALS (9 sets, daily range): BP systolic 103–128; BP diastolic 53–62; PULSE 67–95; RESP 15–95; TEMP 36.3–37.6; O2SAT 95–99
[2021-06-11] MEDS: Heparin Sodium,Porcine 5,000 UNIT/ML VIAL 5000 UNIT SUBCUT ×3 (01:24→23:58)
[2021-06-11] MEDS: Albuterol/Iprat 2.5/0.5MG 3 ML AMPUL.NEB INHALE ×4 (08:03→20:40)
[2021-06-11] MEDS: Famotidine/PF 20 MG/2 ML VIAL IVPUSH (08:52)
[2021-06-11] MEDS: polyethylene glycoL 3350 17 GM POWD.PACK PO (08:55)
[2021-06-11] MEDS: Atorvastatin Calcium 80 MG TABLET PO (08:55)
[2021-06-11] MEDS: predniSONE 20 MG TABLET 40 MG PO (08:56)
[2021-06-11] MEDS: Bisoprolol Fumarate 5 MG TABLET PO (08:56)
[2021-06-11] MEDS: Furosemide 20 MG TABLET PO (08:58)
--- NOTE | 2021-06-11 10:58 | P.PNIM_ITS ---
Subjective Subjective Date of Service: 06/11/21 Review of Systems seen and examined this morning breathing at baseline, no shortness of breath reports some improvement in swelling after lasix Physical Exam Vital Signs: Vital Signs: Last Vital Signs Temp 98.3 F 06/11/21 08:00 Pulse 83 06/11/21 09:26 Resp 95 H 06/11/21 08:03 BP 122/57 L 06/11/21 08:00 Pulse Ox 98 06/11/21 08:00 BMI result Body Mass Index 29.7 Appearing in no acute distress lung sounds are clear to auscultation, tach mask heart regular rate rhythm, clear S1, S2 positive bowel sounds, abdomen is soft, nontender neuro patient is alert x3, no focal deficits Objective Data Active Medications Acetaminophen (Acetaminophen 325 Mg Tablet) 650 mg PO Q6H PRN PRN Reason: Pain, Mild (Pain Scale 1-3) Last Admin: 06/10/21 13:35 Dose: 650 mg Documented by: RONAL Albuterol/Ipratropium (Albuterol/Iprat 2.5/0.5mg 3 Ml Ampul.Neb) 3 ml INHALE RQ4H WHILE AWAKE [facility] Last Admin: 06/11/21 08:03 Dose: 3 ml Documented by: KATY Albuterol/Ipratropium (Albuterol/Iprat 2.5/0.5mg 3 Ml Ampul.Neb) 3 ml INHALE RQ4H PRN PRN Reason: sob, wheezing Last Admin: 06/10/21 23:48 Dose: 3 ml Documented by: LEO Atorvastatin Calcium (Atorvastatin Calcium 80 Mg Tablet) 80 mg PO DAILY [facility] Last Admin: 06/11/21 08:55 Dose: 80 mg Documented by: JANETH Bisacodyl (Bisacodyl 5 Mg Tablet.) 10 mg PO BEDTIME PRN PRN Reason: Constipation Last Admin: 06/10/21 19:55 Dose: 10 mg Documented by: AUNG Bisoprolol Fumarate (Bisoprolol Fumarate 5 Mg Tablet) 5 mg PO DAILY [facility] Last Admin: 06/11/21 08:56 Dose: 5 mg Documented by: JANETH Docusate Sodium (Docusate Sodium 100 Mg Capsule) 100 mg PO BEDTIME [facility] Last Admin: 06/10/21 19:55 Dose: 100 mg Documented by: AUNG Famotidine (Famotidine/Pf 20 Mg/2 Ml Vial) 20 mg IVPUSH DAILY [facility] Last Admin: 06/11/21 08:52 Dose: 20 mg Documented by: JANETH Furosemide (Furosemide 20 Mg Tablet) 20 mg PO DAILY [facility]; Protocol Last Admin: 06/11/21 08:58 Dose: 20 mg Documented by: JANETH Heparin Sodium (Porcine) (Heparin Sodium,Porcine 5,000 Unit/Ml Vial) 5,000 unit SUBCUT Q12H [facility] Last Admin: 06/11/21 01:24 Dose: 5,000 unit Documented by: GILSON Melatonin (Melatonin 3 Mg Tablet) 6 mg PO BEDTIME PRN PRN Reason: Insomnia Last Admin: 06/10/21 19:55 Dose: 6 mg Documented by: AUNG Omeprazole (Omeprazole 20 Mg/10 Ml Susp.Recon) 10 mg PO DAILY@0630 [facility] Last Admin: 06/11/21 06:39 Dose: 10 mg Documented by: GILSON Polyethylene Glycol (Polyethylene Glycol 3350 17 Gm Powd.Pack) 17 gm PO DAILY [facility] Last Admin: 06/11/21 08:55 Dose: 17 gm Documented by: JANETH Prednisone (Prednisone 20 Mg Tablet) 40 mg PO DAILY [facility] Last Admin: 06/11/21 08:56 Dose: 40 mg Documented by: JANETH Vitamin D (Cholecalciferol (Vitamin D3) 25 Mcg Tablet) 50 mcg PO Q2D [facility] Last Admin: 06/09/21 18:42 Dose: 50 mcg Documented by: WAI Labs CBC & Chem 7: 06/08/21 05:24 06/09/21 06:06 Assessment and Plan (1) Tracheitis: Status: Acute Assessment and Plan: ICU course :80-year-old female with coronary disease an episode of Takotsubo? cardiomyopathy that resolved to a normal ejection fraction and an underlying hypertensive and COPD patient who had a tracheostomy 2 and half years ago and since D cannulated and nonhealing stoma brought in electively 2 days ago to have a flap closure done by CT surgery the surgery went successfully extubated doing well at 15-20 minutes later following a did a deep cough she developed severe respiratory distress unable to move air became dense lead cyanotic with subcutaneous air and had a clear-cut acute pneumomediastinum and the no the question of course is whether not the might have been a bleed hematoma but 1 way of the other required emergent reopening of the tracheostomy placement of a 8. Cuffed tube and she was on the ventilator and weaned spent 6 hours yesterday on a a tracheostomy cuff and today as well so currently has the balloon down and is on the tracheostomy cuff with oxygen saturations in the mid 90s respiratory rates in the 20s without any respiratory effort or distress did not have her swallow evaluation and the strict instructions from Cardiothoracic surgery was not to touch the tube until the site heals completely and that is weeks down the line so apparently this is not going to be replaced by a down sized tube at any point so some evaluation in the next 1 or 2 days possibly in conjunction with Dr. Caba is a advice needs to take place as far as the ability to feed and she is refusing a PEG tube ultimately she said she would agree to an NG tube for feeding purposes if need be. Doing well stable under 7 hours of observation on a trach cuff with low FiO2 in the 30% range L flow at about the 7-8 liters/minute no respiratory distress no stridor with the cuff down and this is a 8.? Tracheostomy tube and cardiothoracic surgery will follow at least from a distance but does not want to tube replaced or tampered with at at this point in time s/p emergent Tracheostomy 05/25 due to progressive hypoxia following tracheal closure Stable, with trach mask on, CT surgery following repeat cxr from 06/01 unremarkable seen by pulmonology, diagnosed with tracheitis, continue IV levaquin and doxycycline day 11/22 sputum culture mixed speech re-eval rec ground diet, total supervision, thin liquids, if issues persist with aspiration consider MBBS Seen by Dr. Burris, marketing research analyst, [place] 8 cuffed tracheostomy changed at the bedside over bougie to [place] 8 uncuffed tracheostomy with no complications. anasarca no evidence of DVT likely related to poor nutritional status, albumin low improved somewhat with lasix and albumin continue few days of po lasix, nutritional supplements acute COPD exacerbation continue scheduled breathing treatments change solu-medrol to po prednisone Hypertension stable blood pressure constipation bowel regimen DISPO? to rehab when bed available DVT prophylaxis with subq heparin Attending Dr. Love Full code Quality Stroke Does the patient have a stroke diagnosis?: No VTE Prior VTE?: No VTE Risk Level:: Medical - moderate - high VTE Device Contraindication: N/A - Device Ordered VTE Drug Contraindication: Treatment Not Indicated
--- NOTE | 2021-06-11 13:28 | MHC.CM.PN ---
PATIENT IS OFFERED A BED AT [facility]. FACILITY IS ATTEMPTING AUTH NOW AND EXPECTS IT BY Friday06/12/21. PATIENT AND HOSPITALIST MADE AWARE.
--- NOTE | 2021-06-11 13:40 | MHC.CLN ---
F/U DIET=2 GRAM SODIUM, NDD2 WITH THIN LIQUIDS. ENSURE BID PROVIDES 700 KCAL, 26-40 G PROTEIN. INTAKE VARIABLE, 25-100%, WITH MOST MEALS GREATER THAN 50%. CONTINUE TO FOLLOW DIET TOLERANCE AND INTAKE.
--- NOTE | 2021-06-11 16:34 | MHC.SLORD ---
Speech Language Pathology Order Status: SHOP GIRL checked in with RN this afternoon- Per RN, patient has been tolerating current diet ground/mech altered (NDD2) solids and nectar thick liquids without difficulty. SHOP GIRL to see patient for dysphagia treatment tomorrow morning.
[2021-06-11] MEDS: Cholecalciferol (Vitamin D3) 25 MCG TABLET 50 MCG PO (17:01)
[2021-06-11] MEDS: Docusate Sodium 100 MG CAPSULE PO (20:36)
[2021-06-11] MEDS: Melatonin 3 MG TABLET 6 MG PO (20:36)
[2021-06-11] MEDS: Acetaminophen 325 MG TABLET 650 MG PO (20:36)
[2021-06-12] MEDS: Albuterol/Iprat 2.5/0.5MG 3 ML AMPUL.NEB INHALE ×3 (03:51→12:24)
[2021-06-12 03:53] VITALS: PULSE 80; RESP 17; O2SAT 97
[2021-06-12 03:59] VITALS: BP 126/60; PULSE 52; RESP 17; TEMP 36.8; O2SAT 98
[2021-06-12] MEDS: Acetaminophen 325 MG TABLET 650 MG PO ×2 (04:21→10:28)
[2021-06-12 06:18] LABS: Hematocrit 36.9 % (37.0-47.0); Hemoglobin 12.4 g/dl (12.0-16.0); Mean Corpuscular HGB Conc 33.6 g/dl (31.0-35.0); Mean Corpuscular Hemoglobin 31.5 pg (27.0-33.0); Mean Corpuscular Volume 93.7 fL (80.0-98.0); Mean Platelet Volume 10.6 fL (9.4-12.3); Platelet Count 259 X10*3/uL (160-400); Red Blood Count 3.94 X10*6/uL (4.20-5.50); Red Cell Distribution Width 12.3 % (11.0-16.0); White Blood Count 13.8 X10*3/uL (4.8-10.8)
[2021-06-12 06:36] LABS: Anion Gap 10 (12-20); Blood Urea Nitrogen 12 mg/dL (9-16); Calcium 8.5 mg/dL (8.4-10.2); Carbon Dioxide 38 mmol/L (22-29); Chloride 89 mmol/L (96-108); Creatinine Clr Calc Pharmacy 69.8; Estimated Glomerular Filt Rate > 60; Glucose Random 96 mg/dL (60-115); Potassium 3.4 mmol/L (3.3-5.1); Sodium 134 mmol/L (135-145)
[2021-06-12 07:54] VITALS: BP 132/62; PULSE 85; RESP 20; TEMP 36.7; O2SAT 100
[2021-06-12 08:42] VITALS: PULSE 70; RESP 18; O2SAT 98
[2021-06-12] MEDS: Furosemide 20 MG TABLET PO (09:30)
[2021-06-12] MEDS: Famotidine/PF 20 MG/2 ML VIAL IVPUSH (09:30)
[2021-06-12] MEDS: predniSONE 20 MG TABLET 40 MG PO (09:30)
[2021-06-12] MEDS: Atorvastatin Calcium 80 MG TABLET PO (09:31)
[2021-06-12] MEDS: Bisoprolol Fumarate 5 MG TABLET PO (09:31)
--- NOTE | 2021-06-12 10:12 | PM.DS ---
DS: Providers Provider Date of Service: 06/12/21 Date of admission: 05/25/21 17:36 Primary care physician: VLADIMIR Garcia Consults: 05/30/21 09:30 Consult to Hospitalist Routine Consulting Provider: Hospitalist Reason For Exam: change in attending 06/01/21 07:48 Consult to Pulmonology Routine Consulting Provider: Robert Blunt Reason for consultation: urgent trach following closure 05/25; copious secretions, sob Has provider been notified: No Attending physician on discharge: Vinay Love Discharging clinician: Anay Blunt DS: Diagnosis Discharge Diagnosis (1) Tracheitis: Status: Acute (2) Acquired pneumomediastinum: Status: Acute (3) Acute respiratory failure with hypoxia and hypercarbia: Status: Acute (4) COPD (chronic obstructive pulmonary disease): Status: Acute DS: Summary Hospital Course Hospital Course: 80-year-old female with coronary disease an episode of Takotsubo? cardiomyopathy that resolved to a normal ejection fraction and an underlying hypertensive and COPD patient who had a tracheostomy 2 and half years ago and since D cannulated and nonhealing stoma brought in electively 2 days ago to have a flap closure done by CT surgery the surgery went successfully extubated doing well at 15-20 minutes later following a did a deep cough she developed severe respiratory distress unable to move air became dense lead cyanotic with subcutaneous air and had a clear-cut acute pneumomediastinum and the no the question of course is whether not the might have been a bleed hematoma but 1 way of the other required emergent reopening of the tracheostomy placement of a 8. Cuffed tube and she was on the ventilator and weaned spent 6 hours yesterday on a a tracheostomy cuff and today as well so currently has the balloon down and is on the tracheostomy cuff with oxygen saturations in the mid 90s respiratory rates in the 20s without any respiratory effort or distress did not have her swallow evaluation and the strict instructions from Cardiothoracic surgery was not to touch the tube until the site heals completely and that is weeks down the line so apparently this is not going to be replaced by a down sized tube at any point so some evaluation in the next 1 or 2 days possibly in conjunction with Dr. Caba is a advice needs to take place as far as the ability to feed and she is refusing a PEG tube ultimately she said she would agree to an NG tube for feeding purposes if need be. Doing well stable under 7 hours of observation on a trach cuff with low FiO2 in the 30% range L flow at about the 7-8 liters/minute no respiratory distress no stridor with the cuff down and this is a 8.? Tracheostomy tube and cardiothoracic surgery will follow at least from a distance but does not want to tube replaced or tampered with at at this point in time s/p emergent Tracheostomy 05/25 due to progressive hypoxia following tracheal closure. Stable, with trach mask on, CT surgery following but no further intervention warranted. Seen by pulmonology, diagnosed with tracheitis, treated with IV levaquin and doxycycline day 11/22. putum culture mixed. Speech re-eval rec ground diet, total supervision, thin liquids. Seen by Dr. Burris, draw machine operator, [place] 8 cuffed tracheostomy changed at the bedside over bougie to [place] 8 uncuffed tracheostomy with no complications. She will follow up with Dr. Robert Blunt, pulmonology for smaller trach change. nasarca. no evidence of DVT. Likely related to poor nutritional status, albumin low, improved somewhat with lasix and albumin Will continue lasix as outpatient. Acute COPD exacerbation. Treated with Solumedrol and duonebs. Resolved. Time Spent with Patient Time attestation: Total time spent providing and/or coordinating discharge services: Discharge coordination time: Greater than 30 minutes Quality: Stroke Does the patient have a stroke diagnosis?: No Physical Exam Vital Signs: Vital Signs: Last Vital Signs Temp 98.0 F 06/12/21 07:54 Pulse 70 06/12/21 08:42 Resp 18 06/12/21 08:42 BP 132/62 06/12/21 07:54 Pulse Ox 100 06/12/21 07:54 BMI result Body Mass Index 29.7 Appearing in no acute distress head is normocephalic atraumatic eyes pupils are PERRLA sclera is anicteric mouth throat mucous membranes are intact and moist neck is supple no lymphadenopathy, no JVD noted lung sounds are clear to auscultation, trach intact heart regular rate rhythm, clear S1, S2 positive bowel sounds, abdomen is soft, nontender neuro patient is alert x3, no focal deficits DS: Data Data Completed and Pending Labs on day of discharge: Laboratory Results - last 24 hr 06/12/21 06/12/21 05:45 05:45 WBC 13.8 H RBC 3.94 L Hgb 12.4 Hct 36.9 L MCV 93.7 MCH 31.5 MCHC 33.6 RDW 12.3 Plt Count 259 MPV 10.6 Absolute Nucleated RBC 0.000 Nucleated RBC % (auto) 0.0 Sodium 134 L Potassium 3.4 Chloride 89 L Carbon Dioxide 38 H Anion Gap 10 L BUN 12 Creatinine 0.60 Estim Creat Clear Calc 69.8 Estimated GFR > 60 Random Glucose 96 Calcium 8.5 Discharge Plan Discharge Anticipated Discharge Date/Time: 06/12/21 10:09 Patient Disposition: Xfer Inpatient Rehab Fac Discharge Diagnosis: Tracheitis Acute on chronic respiratory failure COPDexacerbation Referrals: Francisco Plata FNP- [Primary Care Provider] - 1 Week Robert Blunt MD [Physician] - 1 Week Discharge Medications: New furosemide 20 mg Tablet 20 mg PO DAILY Qty: 30 RF: 0 Continued atorvastatin 80 mg tablet 1 tab PO DAILY RF: 0 ipratropium-albuterol 0.5 mg-3 mg(2.5 mg base)/3 mL solution for nebulization 3 ml inhalation QID RF: 0 albuterol sulfate 2.5 mg /3 mL (0.083 %) solution for nebulization 1 vial inhalation Q4H PRN (Reason: wheezing) RF: 0 bisoprolol fumarate 5 mg tablet 1 tab PO DAILY RF: 0 albuterol sulfate [ProAir HFA] 90 mcg/actuation HFA aerosol inhaler 2 puff inhalation Q6H PRN (Reason: wheezing) RF: 0 Spiriva with HandiHaler 18 mcg capsule, w/inhalation device 1 cap PO DAILY RF: 0 budesonide-formoterol [Symbicort] 160-4.5 mcg/actuation HFA aerosol inhaler 2 puff PO BID RF: 0 omeprazole 10 mg Capsule,Delayed Release(Dr/Ec) 10 mg PO DAILY RF: 0 cholecalciferol (vitamin D3) [Vitamin D3] 50 mcg (2,000 unit) Capsule 50 mcg PO Q OTHER DAY RF: 0 Discharge Orders: Discharge Order (Routine); Ordered 06/12/21 Ordered By: Anay Blunt Diet: advance to usual diet and other Activity on Discharge: As tolerated Stand Alone Forms: Patient Portal Discharge page Care Plan Goals: Resolution of pain to trach site full rehabilitation after hospitalization Health Concerns: Tracheitis Acute on chronic respiratory failure COPDexacerbation Plan of Treatment: Follow up with Dr. Blunt for tracheostomy change Assessment: See discharge summary
[2021-06-12 11:07] LABS: COVID-19 Test Negative (Negative)
--- NOTE | 2021-06-12 11:24 | MHC.CM.PN ---
PATIENT TO TRANSFER TO [facility]IA [facility] ( DISCUSSED WITH LIAISON FOR [facility]) PATIENT IS ABLE TO SELF-SUCTION IF NEEDED DURING TRANSPORT. IMM 06/11 IN CHART. RN AND UNIT AWARE OF PLAN
--- NOTE | 2021-06-12 12:50 | MHC.SL.SWA ---
Speech Pathologist Impression: Risk of Aspiration Risk of Aspiration Due to: Tracheostomy Dysphasia Diet Status: No Change Liquid Consistency and Strategies for Safe Swallow: Liquid Intake Recommendation: Thin Liquid Intake Strategies: Small Sips Solid Food Consistency: Dietary Recommendations: Grnd/Mech Altered (NDD2) Additional Modifications to Solid Foods: Oral Medication Intake: Crushed with Puree Compensatory Strategies and Precautions to be Taken for Safe Swallow: Sitting Upright (90 deg) Small Bites and Sips Alternate Liquids/Solids Rate of Ingestion Change Oral Check Avoid Specific Foods Supervision While Eating and Drinking for Safe Swallow: Total Supervision (1:1) Foods to Avoid: tough, sticky foods Swallowing Recommended Treatments: Compens. Strategy Educat. Recommendation for Speech: Further Testing Needed Comment: On 06/12/21, Pt was seen to assess toleration of current diet (Ground Mechanical/Altered (NDD2) w/ Thin Liquids). Pt was sitting up in bed, awake and alert, lights off in room. Pt reported that she was going to be discharged this P.M. to Rehab. Pt reported that she had eaten some breakfast and had no difficulties. Tray was still present, and it was evident Pt had eaten Cream of Wheat, yogurt and some of the juices from the tray. Pt did not see need to re-assess her swallow, but cooperated w/ taking some straw sips of water. Pt managed three chain straw sips of water well w/no clinical signs of aspiration. Pt then requested end of liquid/food trials. Recommend Pt continue on current diet of Ground Mechanical/Altered w/thin liquids, Pills crushed in Puree on transition to Rehab facility. Pt will continue to need TOTAL SUPERVISION, CLOSE MONITORING OF TOLERANCE, AND ASPIRATION PRECAUTIONS during meals. Patient must have dentures in when eating meals. Oral care before meals. Reviewed aspiration precautions with patient. Hold PO if there are any clinical signs of aspiration, decrease in 02 sat, or increased need for suctioning. Patient would benefit from repeat-MBSS (inpatient or outpatient). Recommend continue speech therapy for dysphagia at next level of care. Frequency/Duration: Date Range for Service Req: Timeline to reassess: Grain Farmworker Clinican/Clinical Fellow: No Supervisory Statement: I have reviewed and agree with the student/clinical fellow's documentation: N/A Speech Language Pathologist: Bety Copeland M.A., CCC-JOB CAPTAIN
--- NOTE | 2021-06-12 12:54 | PC.NURSE ---
Attempted to call [facility] [place] [id number] for report on patient. Substation Engineer even tried nursing supervision unable to answer call. Was on hold with floor for 5 minutes first time.
== END 2021-06-12 12:30 | DRG 4 ==
LOC: HO.ICU 18:14 → HO.S3 05-28 13:46
PROVIDERS: Internal Medicine Cardiovascular Disease; Physician Assistant; Physician Assistant Medical; Surgery; Admitting Provider Anesthesiology; PCP Nurse Practitioner Family; Visit Provider Nurse Practitioner Acute Care
PROC: 0BJ08ZZ Inspection of Tracheobronchial Tree, Via Natural or Artificial Opening Endoscopic (ICD-10-PCS; CPT 31622; principal; 2021-05-25 12:30)
PROC: 0WQ Anatomical Regions, General, Repair (ICD-10-PCS; 2021-05-25 12:30)
DX: Z43.0 Encounter for attention to tracheostomy (principal); J04.11 Acute tracheitis with obstruction; J95.822 Acute and chronic postprocedural respiratory failure; J44.1 Chronic obstructive pulmonary disease with (acute) exacerbation; I10 Essential (primary) hypertension; R09.02 Hypoxemia; J98.2 Interstitial emphysema; J38.00 Paralysis of vocal cords and larynx, unspecified; K59.00 Constipation, unspecified; E78.5 Hyperlipidemia, unspecified; Z87.891 Personal history of nicotine dependence; Z23 Encounter for immunization; Z86.74 Personal history of sudden cardiac arrest; Z20.822 Contact with and (suspected) exposure to COVID-19; Z88.5 Allergy status to narcotic agent; Z79.899 Other long term (current) drug therapy
CPT/HCPCS: 36415; 71045; 80048; 80076; 82803; 83735; 83880; 84100; 85025; 85027; 87070; 87205; 87635; 87640; 87641; 90686; 92526; 92610; 93970; 93971; 94002; 94003; 94799; 97110; 97116; 97162; 97530; C1758; J0690; J1100; J1170; J1940; J1956; J2060; J2370; J2405; J2920; J3010; P9047

== ENCOUNTER → 2021-07-23 14:29 | Outpatient (BNVA) | payer MEDICARE, MEDICAID, SELFPAY | PROVIDERS: PCP Nurse Practitioner Family; Visit Provider Hospitalist | DX: J43.2 Centrilobular emphysema (principal); J38.00 Paralysis of vocal cords and larynx, unspecified; Z78.0 Asymptomatic menopausal state; Z93.0 Tracheostomy status | CPT/HCPCS: 99212 ==

== ENCOUNTER → 2021-08-27 10:29 | Outpatient (BNVA) | payer MEDICARE, MEDICAID, SELFPAY | PROVIDERS: PCP Nurse Practitioner Family; Visit Provider Hospitalist | DX: J43.2 Centrilobular emphysema (principal); J38.00 Paralysis of vocal cords and larynx, unspecified; Z93.0 Tracheostomy status | CPT/HCPCS: 99212 ==

== ENCOUNTER → 2021-10-01 12:57 | Outpatient (BNVA) | payer MEDICARE, MEDICAID, SELFPAY | PROVIDERS: PCP Nurse Practitioner Family; Visit Provider Hospitalist | DX: Z23 Encounter for immunization (principal); J43.2 Centrilobular emphysema; J38.00 Paralysis of vocal cords and larynx, unspecified; Z93.0 Tracheostomy status | CPT/HCPCS: 90471; 90732; 99212 ==

== ENCOUNTER → 2021-11-05 10:30 | Outpatient (BNVA) | payer MEDICARE, MEDICAID, SELFPAY | PROVIDERS: PCP Nurse Practitioner Family; Visit Provider Hospitalist | DX: J43.2 Centrilobular emphysema (principal); J38.00 Paralysis of vocal cords and larynx, unspecified; Z93.0 Tracheostomy status | CPT/HCPCS: 99212 ==

== ENCOUNTER 2022-01-23 14:05 | Outpatient (REF) | payer MEDICARE, MEDICAID, SELFPAY ==
--- NOTE | ~2022-01-23 | MM_ITS ---
EXAMINATION: BONE DENSITOMETRY CLINICAL INDICATION: Asymptomatic menopausal state. COMPARISON: None (current study represents initial baseline exam). TECHNIQUE: Using a Convozine DXA System (software version: 13.1) manufactured by [employer], dual-energy x-ray absorptiometry was performed of the lumbar spine and left hip. The images are of good technical quality. Summary results are attached. FINDINGS: AP SPINE L1-L4: BMD 0.981 g/cm2, Z-score -0.4, T-score -1.7, osteopenia. LEFT FEMUR, NECK: BMD 0.747 g/cm2, Z-score -0.8, T-score -2.1, osteopenia. LEFT FEMUR, TOTAL: BMD 0.799 g/cm2, Z-score -0.6, T-score -1.7, osteopenia. IDENTIFIED RISK FACTORS: Early menopause, secondary osteoporosis. HISTORY OF FRACTURE: None listed. MEDICATIONS: Vitamin D. MM/XR DEXA axial skeleton IMPRESSION: 1. DIAGNOSIS: Osteopenia based on the lowest T-score value of -2.1 in the femoral neck applying World Health Organization criteria. 2. 10-YEAR FRACTURE RISK PREDICTION, FRAX: Major osteoporotic fracture (clinical spine, forearm, hip or shoulder) 7.4%. Hip fracture 2.2%. 3. Treatment Recommendations: NOF guidelines recommend consideration for treatment in postmenopausal women and men age 50 and older presenting with the following: -A hip or vertebral (clinical or morphometric) fracture. -T-score less than or equal to -2.5 at the femoral neck or spine after appropriate evaluation to exclude secondary causes. -Low bone mass at the hip or spine and a 10-year fracture probability by FRAX of greater than or equal to 3% for hip fracture or greater than or equal to 20% for major osteoporotic fracture based on the [place] adapted WHO algorithm. 4. Other Recommendations: All treatment decisions require clinical judgment and consideration of individual patient factors, including patient preferences, comorbidities, previous drug use, risk factors not captured in the FRAX model (e.g. frailty, falls, vitamin D deficiency, increased bone turnover, interval significant decline in bone density) and possible under or overestimation of fracture risk by FRAX. Additional medical evaluation for secondary cause of low bone mineral density may be appropriate. FUTURE SCAN RECOMMENDATION: People with diagnosed cases of osteoporosis or at high risk for fracture should have regular bone mineral density tests. For patients eligible for Medicare, routine testing is allowed once every 2 years. The testing frequency can be increased to one year for patients who have rapidly progressing disease, those who are receiving or discontinuing medical therapy to restore bone mass, or have additional risk factors.
== END 2022-01-23 14:06 | disposition home or self-care (01) ==
LOC: HO.MAMMO 14:05
PROVIDERS: PCP Nurse Practitioner Family; Visit Provider Nurse Practitioner Family
DX: Z13.820 Encounter for screening for osteoporosis (principal); Z78.0 Asymptomatic menopausal state
CPT/HCPCS: 77080

== ENCOUNTER → 2022-03-25 08:59 | Outpatient (BNVA) | payer MEDICARE, MEDICAID, SELFPAY | PROVIDERS: PCP Nurse Practitioner Family; Visit Provider Hospitalist | DX: Z23 Encounter for immunization (principal); J43.2 Centrilobular emphysema; J38.00 Paralysis of vocal cords and larynx, unspecified; Z93.0 Tracheostomy status | CPT/HCPCS: 90471; 90686; 99212 ==

== ENCOUNTER → 2022-04-17 11:31 | Outpatient (BNVA) | payer MEDICARE, MEDICAID, SELFPAY | PROVIDERS: PCP Nurse Practitioner Family; Visit Provider Hospitalist | DX: J38.00 Paralysis of vocal cords and larynx, unspecified (principal); J43.2 Centrilobular emphysema; Z93.0 Tracheostomy status | CPT/HCPCS: 99212 ==

== ENCOUNTER 2022-09-03 10:52 | Outpatient (REF) | payer MEDICARE, MEDICAID, SELFPAY ==
[2022-09-03 14:06] LABS: MANUAL DIFF FLAG NO
[2022-09-03 14:11] LABS: Basophils Percent Auto 0.3 % (0-2); Eosinophils Absolute Auto 0.3 X10*3/uL (0.0-0.4); Eosinophils Percent Auto 3.7 % (0-4); Hematocrit 46.9 % (37.0-47.0); Hemoglobin 15.3 g/dl (12.0-16.0); Imm Gran Abs Auto 0.03 X10*3/uL (0.00-0.03); Imm Gran Pct Auto 0.3 % (0.0-0.4); Lymphocytes Percent Auto 33.2 % (20-40); Mean Corpuscular HGB Conc 32.6 g/dl (31.0-35.0); Mean Corpuscular Volume 94.9 fL (80.0-98.0); Mean Platelet Volume 10.8 fL (9.4-12.3); Monocytes Absolute Auto 0.8 X10*3/uL (0.1-1.2); Monocytes Percent Auto 8.5 % (2-11); Neutrophils Absolute Auto 4.9 x10*3/uL (2.0-8.3); Platelet Count 300 X10*3/uL (160-400); Red Blood Count 4.94 X10*6/uL (4.20-5.50); Red Cell Distribution Width 12.7 % (11.0-16.0); White Blood Count 9.2 X10*3/uL (4.8-10.8)
[2022-09-03 14:22] LABS: Appearance Urine Clear; Color Urine Yellow; Glucose Urine UA Negative (Negative); Leukocyte Esterase Urine Negative (Negative); Nitrite Urine Negative (Negative); Urine Blood Negative (Negative); Urine Ketones Negative (Negative); Urine Protein Negative (Neg-Trace)
[2022-09-03 14:37] LABS: Alanine Aminotransferase 15 U/L (0-31); Albumin Level 3.8 g/dL (3.5-5.0); Alkaline Phosphatase 69 U/L (39-117); Anion Gap 11 (12-20); Aspartate Amino Transferase 22 U/L (5-31); Bilirubin Total 1.4 mg/dL (0.0-1.0); Blood Urea Nitrogen 10 mg/dL (9-16); Calcium 9.5 mg/dL (8.4-10.2); Carbon Dioxide 32 mmol/L (22-29); Chloride 98 mmol/L (96-108); Cholesterol 146 mg/dL; Estimated Glomerular Filt Rate > 60; Glucose Fasting 100 mg/dL (60-99); HDL Cholesterol 43 mg/dL; LDL Cholesterol Calculated 88 mg/dl; Potassium 5.6 mmol/L (3.3-5.1); Sodium 135 mmol/L (135-145); Total Protein 6.6 g/dL (6.5-8.0); Triglycerides 78 mg/dL
[2022-09-03 14:53] LABS: TSH reflex Free T4 0.81 uIU/mL (0.32-4.0); Vitamin D 25-OH Total 70.9 ng/mL (>30)
== END 2022-09-03 10:53 | disposition home or self-care (01) ==
LOC: HO.HMGCLDS 10:52
PROVIDERS: PCP Nurse Practitioner Family; Visit Provider Nurse Practitioner Family
DX: Z00.00 Encounter for general adult medical examination without abnormal findings (principal); Z78.0 Asymptomatic menopausal state; E78.5 Hyperlipidemia, unspecified; E87.5 Hyperkalemia; E55.9 Vitamin D deficiency, unspecified
CPT/HCPCS: 36415; 80053; 80061; 81003; 82306; 84443; 85025

== ENCOUNTER 2022-09-04 10:11 | Outpatient (REF) | payer MEDICARE, MEDICAID, SELFPAY ==
--- NOTE | ~2022-09-04 | MM_ITS ---
EXAMINATION: MM SCREENING DIGITAL BREAST TOMOSYNTHESIS, BILATERAL CLINICAL INFORMATION: Screening. Asymptomatic. The lifetime risk of breast cancer based on the Tyrer-Cuzick Model is 1.7%. COMPARISON: Mammography: April 01, 2016 TECHNIQUE: Digital breast tomosynthesis is performed in both the craniocaudal and mediolateral oblique views along with computer-aided detection (CAD). Synthesized 2D images are generated from the tomosynthesis. FINDINGS: There are scattered areas of fibroglandular density (ACR BI-RADS breast composition Category b). There are no significant masses, abnormal calcifications, or other abnormalities. MM/MM tomosynthesis screening BI IMPRESSION: No significant changes from prior exam. ASSESSMENT: BI-RADS 1: Negative RECOMMENDATION: Routine annual mammography screening. This patient's information was entered into a reminder system with a target due date for their next mammogram.
[2022-09-04 12:24] LABS: Anion Gap 13 (12-20); Carbon Dioxide 29 mmol/L (22-29); Chloride 98 mmol/L (96-108); Potassium 5.2 mmol/L (3.3-5.1); Sodium 135 mmol/L (135-145)
== END 2022-09-04 10:12 | disposition home or self-care (01) ==
LOC: HO.MAMMO 10:11
PROVIDERS: Absent Provider Nurse Practitioner Family; PCP Nurse Practitioner Family; Visit Provider Internal Medicine
DX: Z12.31 Encounter for screening mammogram for malignant neoplasm of breast (principal); E87.5 Hyperkalemia
CPT/HCPCS: 36415; 77063; 77067; 80051

== ENCOUNTER 2023-05-13 13:20 | Outpatient (REF) | payer MEDICARE, OTHER, SELFPAY | END 2023-05-13 13:21 | disposition home or self-care (01) | LOC: HO.XRAY 13:20 | PROVIDERS: PCP Nurse Practitioner Family; Visit Provider Hospitalist | DX: Z23 Encounter for immunization (principal); J43.2 Centrilobular emphysema; J38.00 Paralysis of vocal cords and larynx, unspecified; Z93.0 Tracheostomy status | CPT/HCPCS: 71046; 90471; 90686; 99212 ==

== ENCOUNTER 2023-05-13 13:20 | Outpatient (AMB) | payer MEDICARE, MEDICAID, SELFPAY ==
--- NOTE | 2023-05-13 13:37 | A.OFFVIS_ITS ---
Intake Vital Signs 05/13/23 13:38 05/13/23 15:46 Height 5 ft 1 in Weight 138 lb BMI 26.1 26.1 BP 128/70 Blood Pressure Location Lt brachial Position Sitting Pulse 69 Pulse Source Pulse Oximeter Pulse Oximetry (%) 95 Oxygen Delivery Method Room Air Intake Visit Reasons: Trach change Ostomy Care Nurse Required: No Allergies codeine Allergy (Severe, Verified 05/13/23 13:41) rash/itching HPI HPI Comments History of Present Illness Details The patient is a 82-year-old woman known COPD in addition to vocal cord paralysis at some point. She did in the needed tracheostomy and ultimately was decannulated. After worse her still months maintain open after more than a year still open. She does have productive cough that she feels a is hindering the healing of that area. Sometimes the plugs up with a clot but then the clot removed and then her breathing becomes a little more labored because of the open stoma. Sometimes is hard for her to cough and also to speak because of the open stoma. No trouble eating. At some point she was referred to thoracic surgery to consider actually closing the stoma. At this point the patient will be staying home taking care cell specially with coronavirus therefore will try using the butterfly technique for the next several weeks and see if there is any significant benefit. Also try to treat her tracheitis that is causing some mucus burden. 07/23/2021 the patient is here for a pulmonary follow-up visit. The patient had a very eventful few months. 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 Upon closure of the stoma she develops stridor and could not be intubated. Therefore she did undergo an urgent redo tracheostomy and required ICU level of care. She now has a 8. Portex DIC tracheostomy in place. She is tolerating the Passy Jacinto valve although with some difficulties. The patient and her daughter frustrated now going back on the tracheostomy. we talked about different alternatives moving forward but at this point I will downsize her trach and allow her to be able to breathe better around it and tolerated Passy Orlando valve better with hopes that in future she can follow-up with thoracic surgery again in consider a Acosta t tube or continue with the tracheostomy. The patient continues on her nebulized therapy. The therapy has been affecting beneficial. She is also using oxygen through the trach collar. Overall she is doing well although she appears to have lost weight and has been decondition after prolonged hospitalization and rehabilitation. Now she is back living at home she tries to stay independent as much as possible. In the office we did downsize her tracheostomy to a 6. Portex DIC. The patient tolerated the change well. She tolerated her PMV well. Her oxygen stayed above 90%. She was suction after worse and she did breathe better. I will request the Portex DIC from her DME company, [employer]. 08/27/2021 the patient is here for a pulmonary follow-up visit. Overall she is doing well. She is getting some irritation at the area of the stoma. She does have the 6 DIC Portex on cough tracheostomy in place. Her breathing has improved since the last visit. She is tolerating the PMV a lot better. She is getting stronger as well which is reassuring. We did request supplies and also a tracheostomy kit from her DME company, [employer]. However [employer] sent to the wrong tracheostomy and also did not send her any supplies for the tracheostomy because apparently we had not sent the prescription. However, we have everything documented about requesting tracheostomy supplies and also the actual type and size the tracheostomy needed. Fortunately she did bring the tracheostomy in and was able to recognize that the given of the I and we did provide her with the right tracheostomy from our own supplies. We then called also the [employer] company the center of the wrong quit minute which could have been very serious if the wrong tracheostomy had been placed. Not clear if the Gertrude understands the seriousness of the matter so therefore which make a formal complaint to try to avoid further in the future. We were able to change the tracheostomy at the bedside. She did have some mucus secretions and we were able to suction afterwards. She tolerated the change well. I did secure the tracheostomy in place. And I did add that the patient should keep it nice and tight to avoid too much movement of the tracheostomy that can result in irritation of the stoma. I will try to get her some lidocaine ointment that she cannot to the area to alleviate some of the discomfort her breathing has been well. She has been tolerating her nebulized therapies very well. 10/01/2021 the patient is here for a pulm onary follow-up visit. Overall the patient has been doing well. She is tolerating her 6 DIC Portex tracheostomy. She is also tolerating the PMV throughout the day. She is not using her trach collar therefore she is not getting any humidification. I will request an HME for her tracheostomy from her [employer] company. She is also not getting sponges and therefore she is running how I will also request that she gets tracheostomy sponges delivered through her [employer] company. Her nebulized therapy has been helping her underlying respiratory symptoms. She is responding well to the therapy. She continues using nebulizer as prescribed. She has not had to use her rescue therapy. Today we change her tracheostomy. We did provide suctioning prior to a change in it. She tolerated that well she did have some mucoid secretions that were easily suction. After worse her tracheostomy was changed without any complications. 11/05/2021 the patient is here for a pulmonary follow-up visit. Overall the patient is doing well. Today she change her own tracheostomy with my help. She is open to continue changing her own tracheostomy with the help of her VNA. The patient did very well without any difficulties. She can continue providing his of trach care. She continues on her respiratory therapy. She does continue to use trach collar. During the daytime she is using a Passy Jacinto valve. She is going to try capping altogether for few hours if she can during the daytime. She is wondering if the tracheostomy can come out by then is summer. She was able to be without the tracheostomy for many years with stoma open. She is wondering if she can go back to that. This point on a do not to feel comfortable her doing so unless she had a larger stoma that will potentially still been more regularly. 03/25/2022 the patient is here for a pulmonary follow-up visit. She is overall doing well. She does complain that her voice is not as good as before. She feels like her vocal cords got injured after to her initial attempt for decannulation requiring emergent intubation. She has not followed up with ENT regarding her vocal cord paralysis. I did recommend she can be referred to ENT for additional Botox injections. She would like to hold off at this time. If she notices any worsening symptoms she will go ahead and do that. She currentl has #6 DIC Portex uncuffed tracheostomy. In the office I did remove the inner cannula and she did cough up some secretions and therefore I suction her. Her mucus was clear. She continues with her nebulized therapy. As far supplies from her DME company she was having difficulties getting her tracheostomy but she is getting it now. She does need trach collar masks and she also needs Passy Orlando valve. We will order those for her. 04/17/2022 the patient is here for a pulmonary follow-up visit. The patient is concerned because she has not been able to get her trach change now in several months. She has not been able to get any supplies from her DME company. We did call [facility] and they state that the tracheostomy is out of stock with they are tender. There is going to be looking for different vendors. In the meantime she is struggling with and all tracheostoma. She has been having more shortness of breath. Therefore will have her come in we did provide with a tracheostomy in the office that we expect to get reimbursed from [facility]. The patient has a 6. DIC Portex. We changed at the bedside without any complications. She did have some coughing and some chest congestion. We did provide suctioning with good effect. Patient tolerated the procedure well. She does use her Passy Orlando valve. Denies any significant shortness of breath wheezing. She does use her nebulized therapy as prescribed. 05/13/2023 the patient is here for a pulmonary follow-up visit. Overall she has been doing okay. She had recently lower respiratory infection likely viral syndrome that resulted in worsening cough and mucus production. Moderate severity. She still has been taking care of her tracheostomy. Currently has a 6 Portex DIC. Although with the inner cannula is really more of a some numbers 5. Which makes it hard for her to expectorate. She has a hard time coughing up her secretions through her mouth. For the most part she does cough from after her trach. I do believe that she will do little bit better with a slightly bigger trach. I did have available a VIVAtronic 7 mm trach in the office. Therefore just switched over and she did well. She did desaturate after the trach change him she did require some oxygen. She does have oxygen at home that she should be using as well. Will go ahead and have her get an x-ray just to make sure that there isn't anything else going on acutely or subacutely that is resulting in significant hypoxia. In the meantime will go ahead and treat her for bronchitis in view of her significant mucus burden. She is feeling better with the bigger size tracheostomy. The tracheostomy is not affecting her voice which is 1 of the biggest issues. Therefore I will send a prescription to her [employer] company, [employer] in order to get the new trach in addition to that she gets sponges and a Passy Jacinto valve that she uses regularly. She continues use her respiratory therapy with good effect. She has been on Breo and also Spiriva. I think she would do better on Trelegy. Therefore I will send a prescription to the pharmacy. [facility] Medical History Chronic respiratory failure COPD (chronic obstructive pulmonary disease) Cough Elevated cholesterol Endocrine alopecia GERD (gastroesophageal reflux disease) HTN (hypertension) Insomnia Low back pain Myocardial infarction Pulmonary HTN Takotsubo syndrome Tracheostomy dependence Vocal cord paralysis Surgical History Hx of colonoscopy Hx of tonsillectomy Hx of tracheostomy Hx of umbilical hernia repair Social History Household Members: None Housing: Apartment Are you a primary career resource technician to a significant other at home: No Do you presently have visiting nurse or other home services: Yes Patient Tobacco Use Status: Former Tobacco user Quit Date: 2015 Tobacco use type: Cigarette Years Smoked: 30+ years e-Cigarette/Vaping Use: Never Used Second Hand Smoke Exposure: No Review of Systems Const Denies night sweats and Reports weight loss ENT Reports change in voice, Denies lip swelling, Denies mouth pain, Reports nasal congestion, Reports nasal discharge, Reports sore throat and Denies tongue swelling Card Denies chest pain and Reports dyspnea on exertion Resp Reports change in phlegm color, Reports chest congestion, Reports cough, Reports dyspnea on exertion and Denies stridor GI Denies abdominal pain Musc Reports muscle weakness Skin/Breast Denies rash Neuro Denies Neuro-related abnormal movements Psych Denies no additional complaints Hilton/Lymph Denies easy bleeding and Denies lymphadenopathy Aller/Immun Denies lip swelling and Denies tongue swelling Physical Exam Vital Signs: Last Vital Signs Pulse 69 05/13/23 13:38 BP 128/70 05/13/23 13:38 Pulse Ox 95 05/13/23 13:38 Oxygen Delivery Method Room Air 05/13/23 13:38 BMI result Body Mass Index 26.1 Const General: alert Neck Neck: Yes normal visual inspection, Yes full ROM, Yes no lymphadenopathy and Yes tracheostomy present Chest Chest palpation & inspection: normal inspection of the chest Resp Auscultation: diminished lung sounds Cardio Rate: regular rate Rhythm: regular rhythm Heart sounds: S1 normal heart sound present and S2 normal heart sound present GI Palpation (GI): Soft to palpation and nontender Auscultation: normal bowel sounds Skin General skin exam: rashes and/or lesions noted Office Procedures Flu Questionnaire Does the patient have a severe egg allergy?: No Does the patient have severe life threatening allergies?: No Does the patient have a fever or illness today?: No Has the patient ever had Guillain-Arpin Syndrome?: No Has the patient ever had any past reaction to a flu shot?: No Immunizations flu vacc [id number] 6mos up(PF) 60 mcg(15 mcgx4)/0.5 mL IM syringe Performing Provider: Robert Blunt MD Performing Location: [facility] [place] Pulmonology Services Administered by: Marii Varela LPN on 05/13/23 15:30 Dose Route Admin Location Dispensed Lot Number Expiration Date NDC Enterprise Application Administrator 0.5 mL IM Left Deltoid 0.5 mL [id number] 11/16/23 99663-640-28 [employer] VIS Given Date VIS Provided VIS Publication Date 05/13/23 Single Vaccine 20 Eligibility Eligibility Date Funding Source Not [facility] Eligible 05/13/23 Private Assessment & Plan Assessment & Plan (1) COPD (chronic obstructive pulmonary disease): Code(s): J44.9 - Chronic obstructive pulmonary disease, unspecified Qualifiers: COPD type: emphysema Emphysema type: centrilobular Qualified Code(s): J43.2 - Centrilobular emphysema (2) Tracheostomy dependence: Comment: decannulation 2017-continues w/open stoma, then upper airway obstruction when the stoma closed requiring stat redo tracheostomy. Code(s): Z93.0 - Tracheostomy status (3) Vocal cord paralysis: Code(s): J38.00 - Paralysis of vocal cords and larynx, unspecified Plan continue with trach care. We did change her tracheostomy at the bedside. Placed a Medtronic 7 mm tracheostomy without any complications. requesting new tracheostomy and supplies to her [employer] company CXR continue nebulized therapy twice a day as needed with albuterol stop spiriva handihaler start Trelegy short-acting beta agonist as needed oxygen supplementation with activity and sleep follow-up in 4 months Orders: Orders Influenza [id number] Immunization Today Z23 - Encounter for immunization XR chest 2V Today J44.9 - Chronic obstructive pulmonary disease, unspecified Medications: New nkochpskuvv-gjpzaukxm-gwlkmgmd 100-62.5-25 mcg (Trelegy Ellipta) 1 inh inhalation DAILY 30 days 60 ea 11RF J44.9 - Chronic obstructive pulmonary disease, unspecified doxycycline hyclate 100 mg PO BID 10 days 20 caps 0RF Refilled albuterol sulfate 90 mcg/actuation 2 puffs inhalation Q6H 30 days PRN 1 ea 11RF shortness of breath or wheezing Discontinued tiotropium bromide (Spiriva with HandiHaler) Discontinued Reason: Doctor's Order 1 cap PO DAILY 30 caps 0RF formoterol fumarate Discontinued Reason: Doctor's Order 2 mL inhalation Q12H 30 days 120 mL 12RF J43.2 - Centrilobular emphysema budesonide Discontinued Reason: Doctor's Order 0.5 mg (2 mL) inhalation BID 360 mL 0RF J44.9 - Chronic obstructive pulmonary disease, unspecified Coding Level of Care Code Est Pt Level 5 (23103) Diagnoses Centrilobular emphysema J43.2 COPD type: emphysema Emphysema type: centrilobular Tracheostomy dependence Z93.0 Vocal cord paralysis J38.00 Time Spent (min) 40
[2023-05-13 13:38] VITALS: BP 128/70; PULSE 69; O2SAT 95; BMI 26.1
--- NOTE | 2023-05-13 15:42 | MHC.OFFVIS ---
Intake Vital Signs 05/13/23 13:38 Height 5 ft 1 in Weight 138 lb BMI 26.1 BP 128/70 Blood Pressure Location Lt brachial Position Sitting Pulse 69 Pulse Source Pulse Oximeter Pulse Oximetry (%) 95 Oxygen Delivery Method Room Air Intake Visit Reasons: Trach change Allergies codeine Allergy (Severe, Verified 05/13/23 13:41) rash/itching PFSH Medical History Chronic respiratory failure COPD (chronic obstructive pulmonary disease) Cough Elevated cholesterol Endocrine alopecia GERD (gastroesophageal reflux disease) HTN (hypertension) Insomnia Low back pain Myocardial infarction Pulmonary HTN Takotsubo syndrome Tracheostomy dependence Vocal cord paralysis Surgical History Hx of colonoscopy Hx of tonsillectomy Hx of tracheostomy Hx of umbilical hernia repair Social History Household Members: None Housing: Apartment Are you a primary transitional care manager to a significant other at home: No Do you presently have visiting nurse or other home services: Yes Patient Tobacco Use Status: Former Tobacco user Quit Date: 2015 Tobacco use type: Cigarette Years Smoked: 30+ years e-Cigarette/Vaping Use: Never Used Second Hand Smoke Exposure: No Physical Exam Vital Signs: Last Vital Signs Pulse 69 05/13/23 13:38 BP 128/70 05/13/23 13:38 Pulse Ox 95 05/13/23 13:38 Oxygen Delivery Method Room Air 05/13/23 13:38 BMI result Body Mass Index 26.1 Office Procedures Flu Questionnaire Does the patient have a severe egg allergy?: No Does the patient have severe life threatening allergies?: No Does the patient have a fever or illness today?: No Has the patient ever had Guillain-[place] Syndrome?: No Has the patient ever had any past reaction to a flu shot?: No Immunizations flu vacc [id number] 6mos up(PF) 60 mcg(15 mcgx4)/0.5 mL IM syringe Performing Provider: Robert Blunt MD [place] [facility] [place] Administered by: Marii Varela LPN on 05/13/23 15:30 Dose Route Admin Location Dispensed Lot Number Expiration Date NDC Chief Crna 0.5 mL IM Left Deltoid 0.5 mL [id number] 11/16/23 04361-763-20 [employer] VIS Given Date VIS Provided VIS Publication Date 05/13/23 Single Vaccine 20 Eligibility Eligibility Date Funding Source Not [facility] Eligible 05/13/23 Private Assessment & Plan Assessment & Plan (1) COPD (chronic obstructive pulmonary disease): Code(s): J44.9 - Chronic obstructive pulmonary disease, unspecified Qualifiers: COPD type: emphysema Emphysema type: centrilobular Qualified Code(s): J43.2 - Centrilobular emphysema Orders: Orders Influenza [id number] Immunization Today Z23 - Encounter for immunization XR chest 2V Today J44.9 - Chronic obstructive pulmonary disease, unspecified Medications: New pkfyyzmpach-ltkdkrixf-mkkijfhc 100-62.5-25 mcg (Trelegy Ellipta) 1 inh inhalation DAILY 30 days 60 ea 11RF J44.9 - Chronic obstructive pulmonary disease, unspecified doxycycline hyclate 100 mg PO BID 10 days 20 caps 0RF Quality Reporting (2019) Adult ([facility] 138/2//69) Body Mass Index: 26.1 Coding Diagnoses Centrilobular emphysema J43.2 COPD type: emphysema Emphysema type: centrilobular
== END 2023-05-13 14:40 | disposition home or self-care (01) ==
PROVIDERS: PCP Nurse Practitioner Family; Visit Provider Hospitalist
DX: Z23 Encounter for immunization (principal); J43.2 Centrilobular emphysema; Z93.0 Tracheostomy status; J38.00 Paralysis of vocal cords and larynx, unspecified
CPT/HCPCS: 99215

== ENCOUNTER 2023-11-10 10:09 | Outpatient (AMB) | payer MEDICARE, SELFPAY ==
[2023-11-10 10:37] VITALS: PULSE 67; O2SAT 92; BMI 25.7
--- NOTE | 2023-11-10 10:37 | A.OFFVIS_ITS ---
Vital Signs 11/10/23 10:37 Height 5 ft 1 in Weight 136 lb BMI 25.7 Pulse 67 Pulse Source Pulse Oximeter Pulse Oximetry (%) 92 Oxygen Delivery Method Room Air Intake Visit Reasons: trach change Aggregate Conveyor Operator Required: No Allergies codeine Allergy (Severe, Verified 11/10/23 10:38) rash/itching HPI Comments Details: The patient is a 82-year-old woman known COPD in addition to vocal cord paralysis at some point. She did in the needed tracheostomy and ultimately was decannulated. After worse her still months maintain open after more than a year still open. She does have productive cough that she feels a is hindering the healing of that area. Sometimes the plugs up with a clot but then the clot removed and then her breathing becomes a little more labored because of the open stoma. Sometimes is hard for her to cough and also to speak because of the open stoma. No trouble eating. At some point she was referred to thoracic surgery to consider actually closing the stoma. At this point the patient will be staying home taking care cell specially with coronavirus therefore will try using the butterfly technique for the next several weeks and see if there is any significant benefit. Also try to treat her tracheitis that is causing some mucus burden. 07/23/2021 the patient is here for a pulmonary follow-up visit. The patient had a very eventful few months. 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 Upon closure of the stoma she develops stridor and could not be intubated. Therefore she did undergo an urgent redo tracheostomy and required ICU level of care. She now has a 8. Portex DIC tracheostomy in place. She is tolerating the Passy Holloway valve although with some difficulties. The patient and her daughter frustrated now going back on the tracheostomy. we talked about different alternatives moving forward but at this point I will downsize her trach and allow her to be able to breathe better around it and tolerated Passy Jacinto valve better with hopes that in future she can follow-up with thoracic surgery again in consider a Acosta t tube or continue with the tracheostomy. The patient continues on her nebulized therapy. The therapy has been affecting beneficial. She is also using oxygen through the trach collar. Overall she is doing well although she appears to have lost weight and has been decondition after prolonged hospitalization and rehabilitation. Now she is back living at home she tries to stay independent as much as possible. In the office we did downsize her tracheostomy to a 6. Portex DIC. The patient tolerated the change well. She tolerated her PMV well. Her oxygen stayed above 90%. She was suction after worse and she did breathe better. I will request the Portex DIC from her DME company, [employer]. 08/27/2021 the patient is here for a pulmonary follow-up visit. Overall she is doing well. She is getting some irritation at the area of the stoma. She does have the 6 DIC Portex on cough tracheostomy in place. Her breathing has improved since the last visit. She is tolerating the PMV a lot better. She is getting stronger as well which is reassuring. We did request supplies and also a tracheostomy kit from her DME company, [employer]. However [employer] sent to the wrong tracheostomy and also did not send her any supplies for the tracheostomy because apparently we had not sent the prescription. However, we have everything documented about requesting tracheostomy supplies and also the actual type and size the tracheostomy needed. Fortunately she did bring the tracheostomy in and was able to recognize that the given of the I and we did provide her with the right tracheostomy from our own supplies. We then called also the [employer] company the center of the wrong quit minute which could have been very serious if the wrong tracheostomy had been placed. Not clear if the [employer] understands the seriousness of the matter so therefore which make a formal complaint to try to avoid further in the future. We were able to change the tracheostomy at the bedside. She did have some mucus secretions and we were able to suction afterwards. She tolerated the change well. I did secure the tracheostomy in place. And I did add that the patient should keep it nice and tight to avoid too much movement of the tracheostomy that can result in irritation of the stoma. I will try to get her some lidocaine ointment that she cannot to the area to alleviate some of the discomfort her breathing has been well. She has been tolerating her nebulized therapies very well. 10/01/2021 the patient is here for a pulmonary follow-up visit. Overall the patient has been doing well. She is tolerating her 6 DIC Portex tracheostomy. She is also tolerating the PMV throughout the day. She is not using her trach collar therefore she is not getting any humidification. I will request an HME for her tracheostomy from her [employer] company. She is also not getting sponges and therefore she is running how I will also request that she gets tracheostomy sponges delivered through her [employer] company. Her nebulized therapy has been helping her underlying respiratory symptoms. She is responding well to the therapy. She continues using nebulizer as prescribed. She has not had to use her rescue therapy. Today we change her tracheostomy. We did provide suctioning prior to a change in it. She tolerated that well she did have some mucoid secretions that were easily suction. After worse her tracheostomy was changed without any complications. 11/05/2021 the patient is here for a pulmonary follow-up visit. Overall the patient is doing well. Today she change her own tracheostomy with my help. She is open to continue changing her own tracheostomy with the help of her VNA. The patient did very well without any difficulties. She can continue providing his of trach care. She continues on her respiratory therapy. She does continue to use trach collar. During the daytime she is using a Passy Holloway valve. She is going to try capping altogether for few hours if she can during the daytime. She is wondering if the tracheostomy can come out by then is summer. She was able to be without the tracheostomy for many years with stoma open. She is wondering if she can go back to that. This point on a do not to feel comfortable her doing so unless she had a larger stoma that will potentially still been more regularly. 03/25/2022 the patient is here for a pulmonary follow-up visit. She is overall doing well. She does complain that her voice is not as good as before. She feels like her vocal cords got injured after to her initial attempt for decannulation requiring emergent intubation. She has not followed up with ENT regarding her vocal cord paralysis. I did recommend she can be referred to ENT for additional Botox injections. She would like to hold off at this time. If she notices any worsening symptoms she will go ahead and do that. She currentl has #6 DIC Portex uncuffed tracheostomy. In the office I did remove the inner cannula and she did cough up some secretions and therefore I suction her. Her mucus was clear. She continues with her nebulized therapy. As far supplies from her [employer] company she was having difficulties getting her tracheostomy but she is getting it now. She does need trach collar masks and she also needs Passy Holloway valve. We will order those for her. 04/17/2022 the patient is here for a pulmonary follow-up visit. The patient is concerned because she has not been able to get her trach change now in several months. She has not been able to get any supplies from her DME company. We did call [facility] and they state that the tracheostomy is out of stock with they are tender. There is going to be looking for different vendors. In the meantime she is struggling with and all tracheostoma. She has been having more shortness of breath. Therefore will have her come in we did provide with a tracheostomy in the office that we expect to get reimbursed from [facility]. The patient has a 6. DIC Portex. We changed at the bedside without any complications. She did have some coughing and some chest congestion. We did provide suctioning with good effect. Patient tolerated the procedure well. She does use her Passy Holloway valve. Denies any significant shortness of breath wheezing. She does use her nebulized therapy as prescribed. 05/13/2023 the patient is here for a pulmonary follow-up visit. Overall she has been doing okay. She had recently lower respiratory infection likely viral syndrome that resulted in worsening cough and mucus production. Moderate severity. She still has been taking care of her tracheostomy. Currently has a 6 Portex DIC. Although with the inner cannula is really more of a some numbers 5. Which makes it hard for her to expectorate. She has a hard time coughing up her secretions through her mouth. For the most part she does cough from after her trach. I do believe that she will do little bit better with a slightly bigger trach. I did have available a ReCoTechtronic 7 mm trach in the office. Therefore just switched over and she did well. She did desaturate after the trach change him she did require some oxygen. She does have oxygen at home that she should be using as well. Will go ahead and have her get an x-ray just to make sure that there isn't anything else going on acutely or subacutely that is resulting in significant hypoxia. In the meantime will go ahead and treat her for bronchitis in view of her significant mucus burden. She is feeling better with the bigger size tracheostomy. The tracheostomy is not affecting her voice which is 1 of the biggest issues. Therefore I will send a prescription to her [employer] company, [employer] in order to get the new trach in addition to that she gets sponges and a Passy Holloway valve that she uses regularly. She continues use her respiratory therapy with good effect. She has been on Breo and also Spiriva. I think she would do better on Trelegy. Therefore I will send a prescription to the pharmacy. 11/10/2023 the patient is here for a pulmonary follow-up visit. She continues to do well. She changes her own tracheostomy. She has not had any difficulty with the changes. She needs to get a replacement Passy Jacinto valve. I will send prescription to the [employer]. In addition to that she does continue on her nebulizer therapy. She did not tolerate the Trelegy. She responds well to the budesonide and also the formoterol that she takes twice a day. She is concerned about the possibility of losing power and electricity not having her ability to give her some medication. Therefore I will send a prescription for Breztri and she can try instead and see if this is effective for her. She can let me know what she prefers. No recent imaging studies to review that she did have a chest x-ray back on April which was stable without any acute changes. Full ventilator with the current plan will request additional try supplies from [employer]. She will follow-up in early spring. If she has not issues prior to that she will call for an earlier assessment. [facility] Medical History Chronic respiratory failure COPD (chronic obstructive pulmonary disease) Cough Elevated cholesterol Endocrine alopecia GERD (gastroesophageal reflux disease) HTN (hypertension) Insomnia Low back pain Myocardial infarction Pulmonary HTN Takotsubo syndrome Tracheostomy dependence Vocal cord paralysis Surgical History Hx of colonoscopy Hx of tonsillectomy Hx of tracheostomy Hx of umbilical hernia repair Social History Household Members: None Housing: Apartment Are you a primary point of care technician to a significant other at home: No Do you presently have visiting nurse or other home services: Yes Patient Tobacco Use Status: Former Tobacco user Tobacco use type: Cigarette Years Smoked: 30+ years e-Cigarette/Vaping Use: Never Used Second Hand Smoke Exposure: No Review of Systems Const Denies night sweats and Denies weight loss ENT Reports change in voice, Denies lip swelling, Denies mouth pain, Reports nasal congestion, Reports nasal discharge, Reports sore throat and Denies tongue swelling Card Denies chest pain and Reports dyspnea on exertion Resp Reports change in phlegm color, Reports chest congestion, Reports cough, Reports dyspnea on exertion and Denies stridor GI Denies abdominal pain Musc Reports muscle weakness Skin/Breast Denies rash Neuro Denies Neuro-related abnormal movements Psych Denies no additional complaints Hilton/Lymph Denies easy bleeding and Denies lymphadenopathy Aller/Immun Denies lip swelling and Denies tongue swelling Physical Exam Vital Signs: Last Vital Signs Pulse 67 11/10/23 10:37 Pulse Ox 92 11/10/23 10:37 Oxygen Delivery Method Room Air 11/10/23 10:37 BMI result Body Mass Index 25.7 Const General: alert Neck Neck: Yes normal visual inspection, Yes full ROM, Yes no lymphadenopathy and Yes tracheostomy present Chest Chest palpation & inspection: normal inspection of the chest Resp Effort & Inspection: normal respiratory effort Auscultation: diminished lung sounds Cardio Rate: regular rate Rhythm: regular rhythm Heart sounds: S1 normal heart sound present and S2 normal heart sound present GI Palpation (GI): Soft to palpation and nontender Auscultation: normal bowel sounds Skin General skin exam: rashes and/or lesions noted Assessment & Plan Assessment & Plan (1) COPD (chronic obstructive pulmonary disease): Code(s): J44.9 - Chronic obstructive pulmonary disease, unspecified Category: Medical Qualifiers: COPD type: emphysema Emphysema type: centrilobular Qualified Code(s): J43.2 - Centrilobular emphysema (2) Tracheostomy dependence: Comment: decannulation 2018-continues w/open stoma, then upper airway obstruction when the stoma closed requiring stat redo tracheostomy. Code(s): Z93.0 - Tracheostomy status Category: Medical (3) Vocal cord paralysis: Code(s): J38.00 - Paralysis of vocal cords and larynx, unspecified Category: Medical Plan continue with [facility] care. Medtronic 7 mm tracheostomy without any complications. requesting new tracheostomy and supplies to her [employer] company continue nebulized therapy twice a day as needed with albuterol continue Brovana and brovana BID, but will trial Breztri short-acting beta agonist as needed oxygen supplementation with activity and sleep follow-up in 6-8 months Medications: New [id number] 160-9-4.8 mcg/actuation (Breztri Aerosphere) 2 inhalations inhalation BID 10.7 grams 0RF 30 days Coding Level of Care Code Est Pt Level 4 (40908) Diagnoses Centrilobular emphysema J43.2 COPD type: emphysema Emphysema type: centrilobular Tracheostomy dependence Z93.0 Vocal cord paralysis J38.00 Time Spent (min) 16
== END 2023-11-10 11:02 | disposition home or self-care (01) ==
PROVIDERS: PCP Nurse Practitioner Family; Visit Provider Hospitalist
DX: J43.2 Centrilobular emphysema (principal); Z93.0 Tracheostomy status; J38.00 Paralysis of vocal cords and larynx, unspecified
CPT/HCPCS: 99214

== ENCOUNTER → 2023-11-10 10:09 | Outpatient (BNVA) | payer MEDICARE, OTHER, SELFPAY | PROVIDERS: PCP Nurse Practitioner Family; Visit Provider Hospitalist | DX: J43.2 Centrilobular emphysema (principal); J38.00 Paralysis of vocal cords and larynx, unspecified; Z93.0 Tracheostomy status | CPT/HCPCS: 99212 ==

== ENCOUNTER 2023-12-12 09:09 | Outpatient (REF) | payer MEDICARE, SELFPAY ==
[2023-12-12 13:07] LABS: MANUAL DIFF FLAG NO
[2023-12-12 13:13] LABS: Basophils Percent Auto 0.4 % (0-2); Eosinophils Absolute Auto 0.2 X10*3/uL (0.0-0.4); Eosinophils Percent Auto 1.8 % (0-4); Hematocrit 47.2 % (37.0-47.0); Hemoglobin 15.5 g/dl (12.0-16.0); Imm Gran Abs Auto 0.02 X10*3/uL (0.00-0.03); Imm Gran Pct Auto 0.2 % (0.0-0.4); Lymphocytes Absolute Auto 2.5 X10*3/uL (1.2-4.9); Lymphocytes Percent Auto 28.8 % (20-40); Mean Corpuscular HGB Conc 32.8 g/dl (31.0-35.0); Mean Corpuscular Hemoglobin 31.4 pg (27.0-33.0); Mean Corpuscular Volume 95.5 fL (80.0-98.0); Mean Platelet Volume 10.4 fL (9.4-12.3); Monocytes Absolute Auto 0.7 X10*3/uL (0.1-1.2); Monocytes Percent Auto 7.6 % (2-11); Neutrophils Absolute Auto 5.2 x10*3/uL (2.0-8.3); Neutrophils Percent Auto 61.2 % (45-73); Platelet Count 334 X10*3/uL (160-400); Red Blood Count 4.94 X10*6/uL (4.20-5.50); Red Cell Distribution Width 12.7 % (11.0-16.0); White Blood Count 8.5 X10*3/uL (4.8-10.8)
[2023-12-12 13:16] LABS: Appearance Urine Clear; Color Urine Dark Yellow; Glucose Urine UA Negative (Negative); Leukocyte Esterase Urine Small (1+) (Negative); Nitrite Urine Negative (Negative); PH 5.5 (5.0-9.0); Specific Gravity - Urine 1.025 (1.005-1.025); UMIC TRIGGER UACC YES; Urine Blood Negative (Negative); Urine Ketones Negative (Negative); Urine Protein Negative (Neg-Trace)
[2023-12-12 13:30] LABS: Alanine Aminotransferase 13 U/L (0-31); Albumin Level 3.8 g/dL (3.5-5.0); Alkaline Phosphatase 68 U/L (39-117); Anion Gap 13 (12-20); Aspartate Amino Transferase 19 U/L (5-31); Bilirubin Total 1.1 mg/dL (0.0-1.0); Blood Urea Nitrogen 14 mg/dL (9-16); Calcium 9.9 mg/dL (8.4-10.2); Carbon Dioxide 28 mmol/L (22-29); Chloride 102 mmol/L (96-108); Cholesterol 127 mg/dL (<200); Estimated Glomerular Filt Rate > 60; Glucose Fasting 100 mg/dL (60-99); HDL Cholesterol 50 mg/dL (>40); LDL Cholesterol Calculated 65 mg/dL (<100); Potassium 4.7 mmol/L (3.3-5.1); Sodium 138 mmol/L (135-145); Total Protein 7.1 g/dL (6.5-8.0); Triglycerides 61 mg/dL (<150)
[2023-12-12 13:39] LABS: Bacteria Urine None Seen (None Seen); Hyaline Casts Urine 0-2 /LPF (0-2); RBC Urine 0-2 /HPF (0-2); Squamous Epithelial Cell Urine 0-2 /HPF (0-2); UACC Culture Trigger YES
[2023-12-12 13:53] LABS: TSH reflex Free T4 0.87 uIU/mL (0.32-4.0); Vitamin D 25-OH Total 38.3 ng/mL (>30)
== END 2023-12-12 09:10 | disposition home or self-care (01) ==
LOC: HO.HMGCLDS 09:09
PROVIDERS: PCP Nurse Practitioner Family; Visit Provider Nurse Practitioner Family
DX: J43.2 Centrilobular emphysema (principal); Z78.0 Asymptomatic menopausal state; R82.90 Unspecified abnormal findings in urine
CPT/HCPCS: 36415; 80053; 80061; 81001; 82306; 84443; 85025; 87086

== ENCOUNTER 2023-12-24 08:48 | Outpatient (AMB) | payer MEDICARE, MEDICAID, SELFPAY ==
[2023-12-24 09:01] VITALS: BP 132/80; PULSE 68; O2SAT 96
--- NOTE | 2023-12-24 09:01 | MHC.PC.OV ---
Vital Signs 12/24/23 09:01 Height 5 ft 1 in BP 132/80 Blood Pressure Location Rt brachial Position Sitting Pulse 68 Pulse Source Pulse Oximeter Pulse Oximetry (%) 96 Oxygen Delivery Method Room Air Intake Visit Reasons: Annual PE - see comments Intake Note: pt is here for annual exam Wet Inspector Optical Glass Required: No Accompanied by: Self / Same As Patient Allergies codeine Allergy (Severe, Verified 12/24/23 09:39) rash/itching Medication List - Last Reconciled 12/24/23 by NITESH Ardon- albuterol sulfate 1 vial inhalation Q4H PRN albuterol sulfate 90 mcg/actuation 2 puffs inhalation Q6H PRN 30 days aspirin (Adult Low Dose Aspirin) 81 mg PO DAILY atorvastatin 1 tab PO DAILY betamethasone valerate 0.1% 1 appl topical DAILY PRN bisoprolol fumarate 1 tab PO DAILY budesonide 0.5 mg (2 mL) inhalation BID 30 days oknbqifbel-qyrxxvzr-omslvgrycb 160-9-4.8 mcg/actuation (Breztri Aerosphere) 2 inhalations inhalation BID 30 days calcium carbonate (Calcium 600) 600 mg PO DAILY cholecalciferol (vitamin D3) (Vitamin D3) 50 mcg PO Q OTHER DAY nebulizers As directed omeprazole 10 mg PO DAILY ProAir HFA 90 mcg/actuation (albuterol sulfate) 2 puffs inhalation Q6H PRN NS tiotropium-olodaterol 2.5-2.5 mcg/actuation (Stiolto Respimat) 2 puffs inhalation DAILY 30 days Tobacco use date assessed: 12/24/23 Fall risk assessment: No Falls in past year Last assessed Fall Risk: 12/24/23 Dental Screening Dental Screen Date: 12/24/23 Did you have a dental visit in the last 12 months?: No Did you have a dental problem in the last 6 months where you did not have access to dental care?: No Was dental information given to patient?: Patient declined HPI Annual PE - see comments HPI Details Pt is here for a PE. Labs were already performed. Ramiro is up to date. Pt will schedule her own mammogram. Due for bone density, will order. She follows up with pulmonology. Pt reports a slightly raised erythematous rash to her right saldivar. Will send cream. [facility] Medical History (Updated 12/24/23 @ 09:37 by Francisco Plata, [facility]) Cardiomyopathy CAD (coronary artery disease) Pulmonary HTN Low back pain Cough Insomnia Endocrine alopecia Takotsubo syndrome Myocardial infarction HTN (hypertension) GERD (gastroesophageal reflux disease) Elevated cholesterol Tracheostomy dependence Chronic respiratory failure COPD (chronic obstructive pulmonary disease) Vocal cord paralysis Surgical History Hx of umbilical hernia repair Hx of tonsillectomy Hx of colonoscopy Hx of tracheostomy Social History Household Members: None Housing: Apartment Are you a primary customer care team coach to a significant other at home: No Do you presently have visiting nurse or other home services: Yes Patient Tobacco Use Status: Former Tobacco user Tobacco use type: Cigarette Years Smoked: 30+ years e-Cigarette/Vaping Use: Never Used Second Hand Smoke Exposure: No Cognitive needs: No Hearing needs: No Vision needs: No Questionnaire PHQ-9 Over the last 2 weeks, how often have you been bothered by any of the following problems? 1. Little interest or pleasure in doing things: not at all 2. Feeling down, depressed, or hopeless: not at all 3. Trouble falling or staying asleep, or sleeping too much: not at all 4. Feeling tired or having little energy: not at all 5. Poor appetite or overeating: not at all 6. Feeling bad about yourself - or that you are a failure or have let yourself or your family down: not at all 7. Trouble concentrating on things, such as reading the newspaper or watching television: not at all 8. Moving or speaking so slowly that other people could have noticed. Or the opposite - being so fidgety or restless that you have been moving around a lot more than usual: not at all 9. Thoughts that you would be better off or of hurting yourself in some way: not at all Total score: 0 Depression Screening Interpretation: Negative Depression Screening Done: Yes 61103 - PHQ-9 Billing: Yes Source: Developed by Drs. Milton Sheppard, Nabila Gutiérrez, Adriano Almanza and colleagues, with an educational alina from [employer]. Thrive Questionnaire Date Thrive assessed: 12/24/23 I am a: Patient What is your living situation today?: I have a steady place to live Within the past 12 months, did the food you bought not last and you didn't have the money to get more?: I choose not to answer this question Within the past 12 months, did you worry whether your food would run out before you got money to buy more?: I choose not to answer this question Do you have trouble paying for medicines?: No Do you have trouble getting transportation to medical appointments?: No Do you have trouble paying your heating and electricity bill?: No Do you have trouble taking care of your child, family member or friend?: No Do you have trouble with day-to-day activities such as bathing, preparing meals, shopping, managing finances, etc.?: I choose not to answer this question Are you currently unemployed and looking for a job?: No Are you interested in more education?: No Please select the resources that you would like help with: Housing/Fdc Currently or been in a relationship where the following occur: I choose not to answer THRIVE Score: 0 AUDIT C Alcohol Use Questionnaire (AUDIT-C) 1. How often do you have a drink containing alcohol?: 2-4 times a month 2. How many drinks containing alcohol do you have on a typical day when you are drinking?: 1 or 2 3. How often do you have six or more drinks on one occasion?: Never Total Score: 2 Score Reviewed/Action Taken: Yes TARA-7 AMB Questionnaire TARA-7 Date TARA - 7 assessed: 12/24/23 Feeling nervous, anxious, or on edge: 0 = Not at all Not being able to stop or control worryin = Not at all Worrying too much about different things: 0 = Not at all Trouble relaxin = Not at all Being so restless that it is hard to sit still: 0 = Not at all Becoming easily annoyed or irritable: 0 = Not at all Feeling afraid as if something awful might happen: 0 = Not at all Total TARA-7 score (0-4 normal; 5-9 mild; 10-14 moderate; 15-21 severe): 0 Source: Developed by Drs. Milton Sheppard, Nabila Gutiérrez, Adriano Almanza and colleagues, with an educational alina from [employer]. TARA-7 Assessment Billing TARA-7 Assessment Tool: TARA-7 Assessment 92988 Review of Systems Const Denies chills and Denies fever(s) Eyes Denies blurry vision ENT Denies vertigo, Denies dizziness and Denies sore throat Card Denies chest pain at rest, Denies chest pain with activity, Denies diaphoresis, Denies dyspnea and Denies dyspnea on exertion Resp Denies cough, Denies dyspnea, Denies dyspnea on exertion and Denies wheezing GI Denies abdominal pain, Denies melena, Denies hematochezia, Denies constipation, Denies diarrhea and Denies loose stools Denies hematuria Musc Denies numbness and Denies tingling Skin/Breast Denies lesions Neuro Denies vertigo, Denies dizziness, Denies numbness and Denies tingling Psych Denies anxiety, Denies depression, Denies homicidal ideation, Denies suicidal ideation and Denies other (substance abuse) Aller/Immun Denies wheezing Physical exam (Primary Care) Vital Signs: Last Vital Signs Pulse 68 12/24/23 09:01 BP 132/80 12/24/23 09:01 Pulse Ox 96 12/24/23 09:01 Oxygen Delivery Method Room Air 12/24/23 09:01 Tobacco/Smoking Status: Tobacco use Status Tobacco use date assessed 12/24/23 12/24/23 09:02 Patient Tobacco Use Status Former Tobacco user 12/24/23 09:02 Tobacco use type Cigarette 12/24/23 09:02 e-Cigarette/Vaping Use Never Used 12/24/23 09:02 PHQ-9: PHQ-9 Score PHQ-9: Total score 0 12/24/23 09:26 Depression Screening Interpretation: Negative Thrive Assessment: Date of Thrive Assessment Date Thrive assessed 12/24/23 12/24/23 09:02 Currently or been in a relationship where the following occur: I choose not to answer Const General: cooperative Nutritional Appearance: well nourished Orientation/consciousness: patient oriented x3 Limitations: wheelchair HENMT Head: Yes normal to inspection, Yes normocephalic and Yes atraumatic Ears: TM's normal bilaterally Eyes General: appearance normal, both eyes and all related structures Alignment and Position: alignment normal and position normal Neck Neck: Yes normal visual inspection and Yes no lymphadenopathy Thyroid: Thyroid normal Resp Other: scattered crackles Effort & Inspection: normal respiratory effort Cardio Rate: regular rate Rhythm: regular rhythm Heart sounds: S1 normal heart sound present, S2 normal heart sound present and no murmurs GI Palpation (GI): Soft to palpation and nontender Auscultation: normal bowel sounds Skin Other: slightly raised, slightly erythematous raised rash to anterior right saldivar Neuro General: patient oriented x3, moves all extremities, no focal motor deficits and deep tendon reflexes 2+ bilaterally Romberg Test: Negative Psych Appearance: grossly normal Mental Status: mental status grossly normal Speech and movement: Normal speech and movement present Affect: normal affect Attitude: cooperative Thought process: Normal thought process present Thought content: Normal thought content present Insight: Good insight present (Psych) Judgement: Good judgement present (Psych) Assessment and Plan Assessment & Plan (1) Postmenopausal: Code(s): Z78.0 - Asymptomatic menopausal state Plan: Bone density ordered (2) Encounter for routine adult physical exam with abnormal findings: Code(s): Z00.01 - Encounter for general adult medical examination with abnormal findings Plan: Labs performed (3) Dermatitis: Code(s): L30.9 - Dermatitis, unspecified Plan: cream sent Plan The patient agreed to the use of a biomedical equipment technician for this encounter. Scribed for VLADIMIR Buckley by Zeinab Lanza biomedical equipment technician, on 12/24/2023 at 09:25 EST. Orders: Orders XR DEXA axial skeleton Today Z78.0 - Asymptomatic menopausal state Medications: New betamethasone valerate 0.1% 1 appl topical DAILY PRN 45 grams 0RF skin irritation Coding Level of Care Code Est Pt Prev Care >65y(58086) Diagnoses Postmenopausal Z78.0 Encounter for routine adult physical exam with abnormal findings Z00.01 Dermatitis L30.9 Additional Codes TARA-7 Assessment Billing - TARA-7 Assessment Tool: TARA-7 Assessment 71028 ([id number])
== END 2023-12-24 09:41 | disposition home or self-care (01) ==
PROVIDERS: PCP Nurse Practitioner Family; Visit Provider Nurse Practitioner Family
DX: Z00.01 Encounter for general adult medical examination with abnormal findings (principal); L30.9 Dermatitis, unspecified; Z78.0 Asymptomatic menopausal state
CPT/HCPCS: 99213; 99397

== ENCOUNTER 2024-05-11 08:54 | Outpatient (REF) | payer MEDICARE, SELFPAY ==
--- NOTE | ~2024-05-11 | MM_ITS ---
EXAMINATION: MM SCREENING DIGITAL BREAST TOMOSYNTHESIS, BILATERAL CLINICAL INFORMATION: Screening. Asymptomatic. COMPARISON: Mammography: Comparison is made with available priors TECHNIQUE: Digital breast mammography with tomosynthesis is performed in both the craniocaudal and mediolateral oblique views along with computer-aided detection (CAD). FINDINGS: There are scattered areas of fibroglandular density (ACR BI-RADS breast composition Category b). There are no significant masses, abnormal calcifications, or other abnormalities. MM/MM tomosynthesis screening BI IMPRESSION: No mammographic evidence of malignancy. ASSESSMENT: BI-RADS BI-RADS 1 - Negative RECOMMENDATION: Routine annual mammography screening. 1 year F/U This examination should not preclude the clinical evaluation of a suspicious palpable abnormality. This patient's information was entered into a reminder system with a target due date for their next mammogram. Electronically signed by: Mana Akhtar DO 05/25/2024 09:19 AM [facility]
--- NOTE | ~2024-05-11 | MM_ITS ---
EXAMINATION: BONE DENSITOMETRY CLINICAL INDICATION: Asymptomatic menopausal state. COMPARISON: Baseline BD dated 01/23/2022. TECHNIQUE: Using a [employer] DXA System (software version: 13.1) manufactured by [employer], dual-energy x-ray absorptiometry was performed of the lumbar spine and left hip. The images are of good technical quality. Summary results are attached. FINDINGS: AP SPINE L1-L2 (excluding L3 and L4): The data of L1-L4 has been changed to exclude the L3 and L4 vertebral bodies, because at these levels may cause overestimation of lumbar spine density. Current: BMD 0.718 g/cm2, Z-score -2.4, T-score -3.7, osteoporosis, 16.1% decrease from baseline (<5% change is not significant). Baseline: BMD 0.856 g/cm2. LEFT FEMUR, NECK: Current: BMD 0.835 g/cm2, Z-score -0.1, T-score -1.5, osteopenia. Baseline: BMD 0.747 g/cm2. LEFT FEMUR, TOTAL: Current: BMD 0.813 g/cm2, Z-score -0.4, T-score -1.5, osteopenia, 1.8% increase from baseline (<5% change is not significant). Baseline: BMD 0.799 g/cm2. IDENTIFIED RISK FACTORS: Secondary osteoporosis (early menopause). HISTORY OF FRACTURE: None listed. MEDICATIONS: Calcium supplement and/or multivitamin. Vitamin D. MM/XR DEXA axial skeleton IMPRESSION: 1. DIAGNOSIS: Osteoporosis based on the lowest T-score value of -3.7 in the lumbar spine applying World Health Organization criteria. 2. 10-YEAR FRACTURE RISK PREDICTION, FRAX: According to the guidelines, FRAX calculation should only be performed on patients in the osteopenia bone density category. Therefore, FRAX was not performed on this patient. 3. Treatment Recommendations: NOF guidelines recommend consideration for treatment in postmenopausal women and men age 50 and older presenting with the following: -A hip or vertebral (clinical or morphometric) fracture. -T-score less than or equal to -2.5 at the femoral neck or spine after appropriate evaluation to exclude secondary causes. -Low bone mass at the hip or spine and a 10-year fracture probability by FRAX of greater than or equal to 3% for hip fracture or greater than or equal to 20% for major osteoporotic fracture based on the [place] adapted WHO algorithm. 4. Other Recommendations: All treatment decisions require clinical judgment and consideration of individual patient factors, including patient preferences, comorbidities, previous drug use, risk factors not captured in the FRAX model (e.g. frailty, falls, vitamin D deficiency, increased bone turnover, interval significant decline in bone density) and possible under or overestimation of fracture risk by FRAX. Additional medical evaluation for secondary cause of low bone mineral density may be appropriate. FUTURE SCAN RECOMMENDATION: People with diagnosed cases of osteoporosis or at high risk for fracture should have regular bone mineral density tests. For patients eligible for Medicare, routine testing is allowed once every 2 years. The testing frequency can be increased to one year for patients who have rapidly progressing disease, those who are receiving or discontinuing medical therapy to restore bone mass, or have additional risk factors. Electronically signed by: Tawanna Muñoz MD 05/11/2024 10:[address]
== END 2024-05-11 08:55 | disposition home or self-care (01) ==
LOC: HO.MAMMO 08:54
PROVIDERS: PCP Nurse Practitioner Family; Visit Provider Nurse Practitioner Family
DX: Z12.31 Encounter for screening mammogram for malignant neoplasm of breast (principal); M81.0 Age-related osteoporosis without current pathological fracture; Z78.0 Asymptomatic menopausal state
CPT/HCPCS: 77063; 77067; 77080

== ENCOUNTER → 2024-05-11 09:00 | Outpatient (BNV) | payer MEDICARE, SELFPAY | PROVIDERS: PCP Nurse Practitioner Family; Visit Provider Internal Medicine | DX: Z12.31 Encounter for screening mammogram for malignant neoplasm of breast (principal) | CPT/HCPCS: 77063; 77067 ==

== ENCOUNTER 2024-12-27 10:05 | Outpatient (AMB) | payer MEDICARE, SELFPAY ==
[2024-12-27 10:10] VITALS: PULSE 68; O2SAT 90
--- NOTE | 2024-12-27 10:10 | MHC.OFFVIS ---
Vital Signs 12/27/24 10:10 Height 5 ft 1 in BMI Reason not done Patient refused/unable Pulse 68 Pulse Source Pulse Oximeter Pulse Oximetry (%) 90 L Oxygen Delivery Method Room Air Intake Visit Reasons: trach change Airplane Pilot Chief Required: No Accompanied by: Self / Same As Patient Allergies codeine Allergy (Severe, Verified 12/27/24 10:17) rash/itching HPI Comments Details: The patient is a 84-year-old woman known COPD in addition to vocal cord paralysis at some point. She did in the needed tracheostomy and ultimately was decannulated. After worse her still months maintain open after more than a year still open. She does have productive cough that she feels a is hindering the healing of that area. Sometimes the plugs up with a clot but then the clot removed and then her breathing becomes a little more labored because of the open stoma. Sometimes is hard for her to cough and also to speak because of the open stoma. No trouble eating. At some point she was referred to thoracic surgery to consider actually closing the stoma. At this point the patient will be staying home taking care cell specially with coronavirus therefore will try using the butterfly technique for the next several weeks and see if there is any significant benefit. Also try to treat her tracheitis that is causing some mucus burden. 07/23/2021 the patient is here for a pulmonary follow-up visit. The patient had a very eventful few months. 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 Upon closure of the stoma she develops stridor and could not be intubated. Therefore she did undergo an urgent redo tracheostomy and required ICU level of care. She now has a 8. Portex DIC tracheostomy in place. She is tolerating the Passy [place] valve although with some difficulties. The patient and her daughter frustrated now going back on the tracheostomy. we talked about different alternatives moving forward but at this point I will downsize her trach and allow her to be able to breathe better around it and tolerated Passy [place] valve better with hopes that in future she can follow-up with thoracic surgery again in consider a Acosta t tube or continue with the tracheostomy. The patient continues on her nebulized therapy. The therapy has been affecting beneficial. She is also using oxygen through the trach collar. Overall she is doing well although she appears to have lost weight and has been decondition after prolonged hospitalization and rehabilitation. Now she is back living at home she tries to stay independent as much as possible. In the office we did downsize her tracheostomy to a 6. Portex DIC. The patient tolerated the change well. She tolerated her PMV well. Her oxygen stayed above 90%. She was suction after worse and she did breathe better. I will request the Portex DIC from her DME company, [employer]. 08/27/2021 the patient is here for a pulmonary follow-up visit. Overall she is doing well. She is getting some irritation at the area of the stoma. She does have the 6 DIC Portex on cough tracheostomy in place. Her breathing has improved since the last visit. She is tolerating the PMV a lot better. She is getting stronger as well which is reassuring. We did request supplies and also a tracheostomy kit from her DME company, [employer]. However [employer] sent to the wrong tracheostomy and also did not send her any supplies for the tracheostomy because apparently we had not sent the prescription. However, we have everything documented about requesting tracheostomy supplies and also the actual type and size the tracheostomy needed. Fortunately she did bring the tracheostomy in and was able to recognize that the given of the I and we did provide her with the right tracheostomy from our own supplies. We then called also the [employer] company the center of the wrong quit minute which could have been very serious if the wrong tracheostomy had been placed. Not clear if the [employer] understands the seriousness of the matter so therefore which make a formal complaint to try to avoid further in the future. We were able to change the tracheostomy at the bedside. She did have some mucus secretions and we were able to suction afterwards. She tolerated the change well. I did secure the tracheostomy in place. And I did add that the patient should keep it nice and tight to avoid too much movement of the tracheostomy that can result in irritation of the stoma. I will try to get her some lidocaine ointment that she cannot to the area to alleviate some of the discomfort her breathing has been well. She has been tolerating her nebulized therapies very well. 10/01/2021 the patient is here for a pulmonary follow-up visit. Overall the patient has been doing well. She is tolerating her 6 DIC Portex tracheostomy. She is also tolerating the PMV throughout the day. She is not using her trach collar therefore she is not getting any humidification. I will request an HME for her tracheostomy from her [employer] company. She is also not getting sponges and therefore she is running how I will also request that she gets tracheostomy sponges delivered through her [employer] company. Her nebulized therapy has been helping her underlying respiratory symptoms. She is responding well to the therapy. She continues using nebulizer as prescribed. She has not had to use her rescue therapy. Today we change her tracheostomy. We did provide suctioning prior to a change in it. She tolerated that well she did have some mucoid secretions that were easily suction. After worse her tracheostomy was changed without any complications. 11/05/2021 the patient is here for a pulmonary follow-up visit. Overall the patient is doing well. Today she change her own tracheostomy with my help. She is open to continue changing her own tracheostomy with the help of her VNA. The patient did very well without any difficulties. She can continue providing his of trach care. She continues on her respiratory therapy. She does continue to use trach collar. During the daytime she is using a Passy [place] valve. She is going to try capping altogether for few hours if she can during the daytime. She is wondering if the tracheostomy can come out by then is summer. She was able to be without the tracheostomy for many years with stoma open. She is wondering if she can go back to that. This point on a do not to feel comfortable her doing so unless she had a larger stoma that will potentially still been more regularly. 03/25/2022 the patient is here for a pulmonary follow-up visit. She is overall doing well. She does complain that her voice is not as good as before. She feels like her vocal cords got injured after to her initial attempt for decannulation requiring emergent intubation. She has not followed up with ENT regarding her vocal cord paralysis. I did recommend she can be referred to ENT for additional Botox injections. She would like to hold off at this time. If she notices any worsening symptoms she will go ahead and do that. She currentl has #6 DIC Portex uncuffed tracheostomy. In the office I did remove the inner cannula and she did cough up some secretions and therefore I suction her. Her mucus was clear. She continues with her nebulized therapy. As far supplies from her DME company she was having difficulties getting her tracheostomy but she is getting it now. She does need trach collar masks and she also needs Passy [place] valve. We will order those for her. 04/17/2022 the patient is here for a pulmonary follow-up visit. The patient is concerned because she has not been able to get her trach change now in several months. She has not been able to get any supplies from her DME company. We did call [facility] and they state that the tracheostomy is out of stock with they are tender. There is going to be looking for different vendors. In the meantime she is struggling with and all tracheostoma. She has been having more shortness of breath. Therefore will have her come in we did provide with a tracheostomy in the office that we expect to get reimbursed from [facility]. The patient has a 6. DIC Portex. We changed at the bedside without any complications. She did have some coughing and some chest congestion. We did provide suctioning with good effect. Patient tolerated the procedure well. She does use her Passy [place] valve. Denies any significant shortness of breath wheezing. She does use her nebulized therapy as prescribed. 05/13/2023 the patient is here for a pulmonary follow-up visit. Overall she has been doing okay. She had recently lower respiratory infection likely viral syndrome that resulted in worsening cough and mucus production. Moderate severity. She still has been taking care of her tracheostomy. Currently has a 6 Portex DIC. Although with the inner cannula is really more of a some numbers 5. Which makes it hard for her to expectorate. She has a hard time coughing up her secretions through her mouth. For the most part she does cough from after her trach. I do believe that she will do little bit better with a slightly bigger trach. I did have available a [employer] 7 mm trach in the office. Therefore just switched over and she did well. She did desaturate after the trach change him she did require some oxygen. She does have oxygen at home that she should be using as well. Will go ahead and have her get an x-ray just to make sure that there isn't anything else going on acutely or subacutely that is resulting in significant hypoxia. In the meantime will go ahead and treat her for bronchitis in view of her significant mucus burden. She is feeling better with the bigger size tracheostomy. The tracheostomy is not affecting her voice which is 1 of the biggest issues. Therefore I will send a prescription to her [employer] company, [employer] in order to get the new trach in addition to that she gets sponges and a Passy [place] valve that she uses regularly. She continues use her respiratory therapy with good effect. She has been on Breo and also Spiriva. I think she would do better on Trelegy. Therefore I will send a prescription to the pharmacy. 11/10/2023 the patient is here for a pulmonary follow-up visit. She continues to do well. She changes her own tracheostomy. She has not had any difficulty with the changes. She needs to get a replacement Passy [place] valve. I will send prescription to the [employer] company. In addition to that she does continue on her nebulizer therapy. She did not tolerate the Trelegy. She responds well to the budesonide and also the formoterol that she takes twice a day. She is concerned about the possibility of losing power and electricity not having her ability to give her some medication. Therefore I will send a prescription for Breztri and she can try instead and see if this is effective for her. She can let me know what she prefers. No recent imaging studies to review that she did have a chest x-ray back on April which was stable without any acute changes. Full ventilator with the current plan will request additional try supplies from [employer]. She will follow-up in early spring. If she has not issues prior to that she will call for an earlier assessment. 12/27/2024 the patient is here for pulmonary follow-up visit. Overall the patient has been doing okay. She does have a tracheostomy in place and she does change it on a regular basis without any complications. She provide her own trach care. The patient does tolerate the Passy [place] valve well. She still has some air leakage around the tracheostomy. She does continue with respiratory inhalers including her Breztri inhaler and her rescue inhaler and Combivent. Does have been very affecting beneficial. I will make sure to send to the pharmacy. Today during the visit the patient's blood pressure was elevated initially hard to read because she was having pain when using the cough. I did rechecked the blood pressure still elevated 160/90 although she does not have a history of high blood pressure. She did have lower extremity edema. Therefore I center some Lasix to take for few days and the patient hopefully will be called by the primary care doctor's office for blood pressure check. She also has a cuff at home that she should use and check and also should bring her to her primary care appointment to make sure that is accurate. Otherwise from the pulmonary standpoint the patient is doing well plan to follow-up sometime in the spring. If any issues arise she will call for further recommendations. [facility] Medical History (Updated 12/27/24 @ 21:41 by Robert Blunt MD) Cardiomyopathy CAD (coronary artery disease) Pulmonary HTN Low back pain Cough Insomnia Endocrine alopecia Takotsubo syndrome Myocardial infarction HTN (hypertension) GERD (gastroesophageal reflux disease) Elevated cholesterol Tracheostomy dependence Chronic respiratory failure COPD (chronic obstructive pulmonary disease) Vocal cord paralysis Surgical History Hx of umbilical hernia repair Hx of tonsillectomy Hx of colonoscopy Hx of tracheostomy Social History Household Members: None Housing: Apartment Are you a primary family day care worker to a significant other at home: No Do you presently have visiting nurse or other home services: Yes Patient Tobacco Use Status: Former Tobacco user Tobacco use type: Cigarette Years Smoked: 30+ years e-Cigarette/Vaping Use: Never Used Second Hand Smoke Exposure: No Cognitive needs: No Hearing needs: No Vision needs: No Review of Systems Const Denies night sweats and Denies weight loss ENT Reports change in voice, Denies lip swelling, Denies mouth pain, Reports nasal congestion, Reports nasal discharge, Reports sore throat and Denies tongue swelling Card Denies chest pain and Reports dyspnea on exertion Resp Reports change in phlegm color, Reports chest congestion, Reports cough, Reports dyspnea on exertion and Denies stridor GI Denies abdominal pain Musc Reports muscle weakness Skin/Breast Denies rash Neuro Denies Neuro-related abnormal movements Psych Denies no additional complaints Hilton/Lymph Denies easy bleeding and Denies lymphadenopathy Aller/Immun Denies lip swelling and Denies tongue swelling Physical Exam Vital Signs: Last Vital Signs Pulse 68 12/27/24 10:10 Pulse Ox 90 L 12/27/24 10:10 Oxygen Delivery Method Room Air 12/27/24 10:10 Const General: alert Neck Neck: Yes normal visual inspection, Yes full ROM, Yes no lymphadenopathy and Yes tracheostomy present Chest Chest palpation & inspection: normal inspection of the chest Resp Effort & Inspection: normal respiratory effort Auscultation: diminished lung sounds Cardio Rate: regular rate Rhythm: regular rhythm Heart sounds: S1 normal heart sound present and S2 normal heart sound present GI Palpation (GI): Soft to palpation and nontender Auscultation: normal bowel sounds Skin General skin exam: rashes and/or lesions noted Extrem General: No clubbing, No cyanosis and Yes edema Assessment & Plan Assessment & Plan (1) COPD (chronic obstructive pulmonary disease): Code(s): J44.9 - Chronic obstructive pulmonary disease, unspecified Category: Medical Qualifiers: COPD type: emphysema Emphysema type: centrilobular Qualified Code(s): J43.2 - Centrilobular emphysema (2) Tracheostomy dependence: Comment: decannulation 2017-continues w/open stoma, then upper airway obstruction when the stoma closed requiring stat redo tracheostomy. Code(s): Z93.0 - Tracheostomy status Category: Medical (3) Vocal cord paralysis: Code(s): J38.00 - Paralysis of vocal cords and larynx, unspecified Category: Medical (4) HTN (hypertension): Code(s): I10 - Essential (primary) hypertension Category: Medical Qualifiers: Hypertension type: primary hypertension Qualified Code(s): I10 - Essential (primary) hypertension Plan continue with the [facility] care. [employer] 7 mm tracheostomy without any complications. requesting new tracheostomy and supplies to her [employer] continue nebulized therapy twice a day as needed with albuterol continue Breztri short-acting beta agonist as needed oxygen supplementation with activity and sleep lasix x 3 days BP check with PCP follow-up in 6-8 months Medications: New furosemide (Lasix) 20 mg PO DAILY 3 tabs 0RF Changed From albuterol sulfate 1 vial inhalation Q4H PRN wheezing J43.2 - Centrilobular emphysema To albuterol sulfate 2.5 mg (3 mL) inhalation BID 180 mL 11RF 30 days J43.2 - Centrilobular emphysema Refilled albuterol sulfate 90 mcg/actuation 2 puffs inhalation Q6H PRN 8.5 grams 11RF for wheezing ipratropium-albuterol 20-100 mcg/actuation (Combivent Respimat) space evenly during waking hours 1 puff inhalation QID 4 grams 11RF wnoorqxcbe-zolvvgjn-vchzurhevl 160-9-4.8 mcg/actuation (Breztri Aerosphere) 2 inhalations inhalation BID 10.7 grams 11RF 30 days Coding Level of Care Code Est Pt Level 5 (85504) Complex EM visit Add On G2211 Diagnoses Centrilobular emphysema J43.2 COPD type: emphysema Emphysema type: centrilobular Tracheostomy dependence Z93.0 Vocal cord paralysis J38.00 Primary hypertension I10 Hypertension type: primary hypertension Time Spent (min) 45
--- OUTSIDE RECORDS SUMMARY | 2024-12-27 10:47 | XMS_ITS ---
Author Organization [facility] on Care Team Providers Care Software Test Automation Engineer Name Role Phone Tabitha Lorenzana Unavailable Unavailable Jessika Santiago Unavailable Unavailable Alina Vergara Unavailable Unavailable Milton Ruiz Unavailable Unavailable Allergies and adverse reactions Code CodeSystem Substance Reaction Severity StartDate Concern Status 2670 RXNORM Codeine Unknown 06/12/2021 active Care Team Name Role Address Phone Organization Dates Tabitha Lorenzana PCP [address] [place] [address], [address], [place] (Office): : [facility] 06/12/2021 - 06/26/2021 Jessika Santiago [address] [place] [address], [id number], [place] (Office): [facility] 06/12/2021 - 06/26/2021 Alina Vergara [address] [place], [address], [place] (Office): : [facility] 06/12/2021 - 06/26/2021 Milton Joseph [address] [place] [address], [place], [place], [facility], [place] (Office): : [facility] 06/12/2021 - 06/26/2021 Immunizations Immunization Status Vaccine Details Vaccine Code CodeSystem Date Notes TB 2 Step Mantoux Skin Test completed tuberculin skin test; unspecified formulation lotNumber: [id number] expiry: 09/07/2022 Mfg: [employer] Given 0.1 ml Left Forearm intradermally Step 1 of Multi-step 98 CVX created date: 06/22/2021 consent date: 06/21/2021 administere d date: 06/22/2021 TB 2 Step Mantoux Skin Test completed tuberculin skin test; unspecified formulation lotNumber: [id number] expiry: 10/19/2022 Mfg: [employer] Given 0.1 ml Left Forearm intradermally Step 1 of Multi-step 98 CVX created date: 06/12/2021 consent date: 06/12/2021 administere d date: 06/12/2021 SARS-COV-2 (COVID-19) completed SARS-COV-2 (COVID-19) vaccine, mRNA, spike protein, LNP, preservative free, 100 mcg/0.5mL dose or 50 mcg/0.25mL dose Mfg: [email or web address] Step 1 of Multi-step 207 CVX created date: 06/12/2021 consent date: 06/12/2021 administere d date: 04/21/2021 Booster SARS-COV-2 (COVID-19) completed SARS-COV-2 (COVID-19) vaccine, mRNA, spike protein, LNP, preservative free, 100 mcg/0.5mL dose or 50 mcg/0.25mL dose Mfg: [employer] Step 1 of Multi-step 207 CVX created date: 06/12/2021 administere d date: 08/14/2020 Mental Status Section Date Assessment Total Score Description 06/26/2021 BIMS 15 cognitively int act CAM 0 No delirium ind icated PHQ-9 12 moderate depres gina 06/18/2021 BIMS 15 cognitively int act CAM 0 No delirium ind icated PHQ-9 12 moderate depres gina Problems Problem # Description Date of onset Resolved Date Code CodeSystem Concern Status 1 ACUTE TRACHEITIS WITHOUT OBSTRUCTION 06/12/[address] active 2 CHRONIC OBSTRUCTIVE PULMONARY DISEASE WITH (ACUTE) EXACERBATION 06/12/[address] active 3 EMPHYSEMA (SUBCUTANEOUS) RESULTING FROM A PROCEDURE, SUBSEQUENT ENCOUNTER 06/12/[address] active 4 ENCOUNTER FOR ATTENTION TO TRACHEOSTOMY 06/12/[address] active 5 GASTRO-ESOPHAGEAL REFLUX DISEASE WITHOUT ESOPHAGITIS 06/12/[address] active 6 HYPERLIPIDEMIA, UNSPECIFIED 06/12/[address] active 7 INSOMNIA, UNSPECIFIED 06/12/[address] active 8 LOW BACK PAIN, UNSPECIFIED 06/12/[address] active 9 PARALYSIS OF VOCAL CORDS AND LARYNX, BILATERAL 06/12/[address] active 10 RESPIRATORY FAILURE, UNSPECIFIED, UNSPECIFIED WHETHER WITH HYPOXIA OR HYPERCAPNIA 06/12/[address] active 11 TAKOTSUBO SYNDROME 06/12/2021 779482173 SNOMED C T active Reason for Referral No Reasons for Referral Entered Social History Social History Observation Description Start Date End Date Code Code System Current Smoking Status Tobacco smoking consumption unknown 663751022 SNOMED CT Sex Assigned At Female 1940 [address]-8 [facility] Gender Identity Vital Signs Code Code System Vitals Name Values and Units Timing Information 9279-1 LOINC Respiratory Rate Value=22.0 Units=/m in 06/26/2021 8462-4 LOINC Blood Pressure-Diastolic Value=66 Un its=mmHg 06/26/2021 8480-6 LOINC Blood Pressure-Systolic Pzrns=452 Un its=mmHg 06/26/2021 8310-5 LOINC Body Temperature Value=97.2 Units= F 06/26/2021 8867-4 LOINC Heart rate Jxrld=859.0 Units=/min 06/26/2021 25587-0 LOINC O2 % BldC Oximetry Value=97.0 Units= % 06/26/2021 46961-7 LOINC Pain Level Value=0.0 06/26/2021 25421-4 LOINC Weight Vwiei=114.0 Units=Lbs 12/2021 2339-0 LOINC Blood Sugar Value=91.0 Units=mg/dL 06/12/2021 8302-2 LOINC Height Value=63.0 Units=Inches 06/12/2021
--- OUTSIDE RECORDS SUMMARY | 2024-12-27 10:47 | XMS_ITS ---
Author Organization [facility] Care Team Providers Care Cattle Trader Name Role Phone Irene Freeman Unavailable Unavailable Khloe Foss Unavailable Unavailable Jelena Adrono Unavailable Unavailable Jessika Otero Unavailable Unavailable Alina Baez Unavailable Unavailable Allergies and adverse reactions Code CodeSystem Substance Reaction Severity StartDate Concern Status 2670 RXNORM Codeine Unknown Unknown active Care Team Name Role Address Phone Organization Dates Jelena Adorno PCP [address] [facility] [address], [place], [address], [facility] (Office): [facility] 03/22/2017 - 04/05/2017 Irene Freeman [address] [place] [address], [facility] (Office): [facility] 03/22/2017 - 04/05/2017 Khloe Foss [address], [address], [facility] (Office): [facility] 03/22/2017 - 04/05/2017 Jessika Otero [address] [address], [facility] (Office): [facility] 03/22/2017 - 04/05/2017 Alina Baez [address], [address], [facility] (Office): [facility] 03/22/2017 - 04/05/2017 Mental Status Section Date Assessment Total Score Description 04/05/2017 BIMS 15 cognitively int act CAM 0 No delirium ind icated PHQ-9 00 04/03/2017 BIMS 15 cognitively int act CAM 0 No delirium ind icated PHQ-9 00 Problems Problem # Description Date of onset Resolved Date Code CodeSystem Concern Status 1 ACUTE RESPIRATORY FAILURE WITH HYPOXIA 11/12/2016 12/27/[address] completed 2 CHRONIC OBSTRUCTIVE PULMONARY DISEASE WITH (ACUTE) EXACERBATION 11/12/2016 12/27/[address] completed 3 CHRONIC OBSTRUCTIVE PULMONARY DISEASE, UNSPECIFIED 11/12/[address] active 4 DIFFICULTY IN WALKING, NOT ELSEWHERE CLASSIFIED 11/12/[address] active 5 DYSPHAGIA, OROPHARYNGEAL PHASE 11/12/2016 12/27/[address] completed 6 ENCOUNTER FOR OTHER SPECIFIED SURGICAL AFTERCARE 11/12/2016 12/27/[address] completed 7 GENERALIZED ANXIETY DISORDER 11/12/[address] active 8 HEART FAILURE, UNSPECIFIED 11/12/[address] active 9 MUSCLE WEAKNESS (GENERALIZED) 11/12/[address] active 10 OTHER LACK OF COORDINATION 11/12/[address] active 11 SHORTNESS OF BREATH 11/12/[address] active 12 TRACHEOSTOMY STATUS 11/12/[address] active Reason for Referral No Reasons for Referral Entered Social History Social History Observation Description Start Date End Date Code Code System Current Smoking Status Tobacco smoking consumption unknown 904251373 SNOMED CT Sex Assigned At Female 1940 [address][birth year]-5 [facility] Gender Identity Vital Signs Code Code System Vitals Name Values and Units Timing Information 9279-1 LOINC Respiratory Rate Value=20.0 Units=/m in 04/04/2017 8462-4 LOINC Blood Pressure-Diastolic Value=72 Un its=mmHg 04/04/2017 8480-6 LOINC Blood Pressure-Systolic Qbpgk=444 Un its=mmHg 04/04/2017 8310-5 LOINC Body Temperature Value=98.4 Units= F 04/04/2017 8867-4 [facility] Heart rate Value=81.0 Units=/min 79099-1 [facility] O2 % dC Oximetry Value=95.0 Units= % 04/04/2017 59875-8 [facility] Weight Mqfbx=935.0 Units=Lbs 8302-2 [facility] Height Value=61.0 Units=Inches 11/13/2016 65166-8 [facility] Pain Level Value=3.0 11/13/2016
== END 2024-12-27 10:44 | disposition home or self-care (01) ==
LOC: HO.HPS 10:06
PROVIDERS: PCP Nurse Practitioner Family; Visit Provider Hospitalist
DX: J43.2 Centrilobular emphysema (principal); Z93.0 Tracheostomy status; J38.00 Paralysis of vocal cords and larynx, unspecified; I10 Essential (primary) hypertension
CPT/HCPCS: 99215; G2211

== ENCOUNTER → 2024-12-27 10:05 | Outpatient (BNVA) | payer MEDICARE, SELFPAY | PROVIDERS: PCP Nurse Practitioner Family; Visit Provider Hospitalist | DX: J43.2 Centrilobular emphysema (principal); Z93.0 Tracheostomy status; J38.00 Paralysis of vocal cords and larynx, unspecified; I10 Essential (primary) hypertension | CPT/HCPCS: 99212 ==

== ENCOUNTER 2025-05-10 13:31 | Outpatient (AMB) | payer MEDICARE, SELFPAY ==
[2025-05-10 13:36] VITALS: BP 150/80; PULSE 56; O2SAT 89
--- NOTE | 2025-05-10 13:36 | MHC.PC.OV ---
Vital Signs 05/10/25 13:36 05/10/25 14:14 Height 5 ft 1 in BMI Reason not done Patient refused/unable BP 150/80 H 120/72 Blood Pressure Location Rt brachial Lt brachial Position Sitting Sitting Pulse 56 Pulse Source Pulse Oximeter Pulse Oximetry (%) 89 L 92 Oxygen Delivery Method Nasal Cannula Nasal Cannula Intake Visit Reasons: PE Intake Note: pt is here for annual exam Loom Fixer Required: No Accompanied by: Self / Same As Patient Allergies codeine Allergy (Severe, Verified 05/10/25 14:45) rash/itching cefprozil (From Cefzil) Allergy (Verified 05/10/25 14:45) Unknown lisinopril Allergy (Verified 05/10/25 14:45) Facial Swelling sulfamethizole Allergy (Verified 05/10/25 14:45) Unknown sulfamethoxazole (From Bactrim) Allergy (Verified 05/10/25 14:45) Unknown trimethoprim (From Bactrim) Allergy (Verified 05/10/25 14:45) Unknown Medication List - Last Reconciled 05/10/25 by NITESH Ardon- albuterol sulfate 90 mcg/actuation 2 puffs inhalation Q6H PRN albuterol sulfate 2.5 mg (3 mL) inhalation BID 30 days aspirin (Adult Low Dose Aspirin) 81 mg PO DAILY atorvastatin 1 tab PO DAILY betamethasone valerate 0.1% 1 appl topical DAILY PRN bisoprolol fumarate 1 tab PO DAILY budesonide 0.5 mg (2 mL) inhalation BID 30 days bscmfnqarv-xhkpxclm-uhltsnpfuq 160-9-4.8 mcg/actuation (Breztri Aerosphere) 2 inhalations inhalation BID 30 days calcium carbonate (Calcium 600) 600 mg PO DAILY cholecalciferol (vitamin D3) (Vitamin D3) 50 mcg PO Q OTHER DAY ipratropium-albuterol 20-100 mcg/actuation (Combivent Respimat) 1 puff inhalation QID nebulizers As directed omeprazole 10 mg PO DAILY ProAir HFA 90 mcg/actuation (albuterol sulfate) 2 puffs inhalation Q6H PRN NS Tobacco use date assessed: 05/10/25 Fall risk assessment: No Falls in past year Last assessed Fall Risk: 05/10/25 Dental Screening Dental Screen Date: 05/10/25 Did you have a dental visit in the last 12 months?: No Did you have a dental problem in the last 6 months where you did not have access to dental care?: No Was dental information given to patient?: Patient declined HPI PE HPI Details History of Present Illness The patient is an 84-year-old female presenting for a physical exam. She sees a rabbit fancier and a caddy/caddie supervisor on a regular basis. She has a history of a periumbilical hernia for years, which she reports is not painful. She has a tracheostomy. She reports weakness in her lower extremities and uses a wheelchair for long distances. Regarding health maintenance, she declines to undergo a colonoscopy or Cologuard at this time. She is aware and she needs to schedule her own mammogram. Her bone density scan is up to date. Health Maintenance - Colon Cancer Screening: The patient declined a colonoscopy or Cologuard. - Breast Cancer Screening: The patient will schedule her own mammogram. - Osteoporosis Screening: Bone density scan is up to date. - Laboratory Studies: The patient will have fasting lab work performed in the near future. - Specialist Care: The patient sees a rabbit fancier and a caddy/caddie supervisor on a regular basis. Social History - Functional Status: The patient uses a wheelchair for long distances due to weakness in her lower extremities. Review of Systems - Cardiovascular: Denies chest pain. - Respiratory: Denies increased shortness of breath. - Gastrointestinal: Denies abdominal pain, blood in stool, constipation, or diarrhea. Physical Exam General: Cooperative, healthy appearing, comfortable, no acute distress and well developed Orientation: Patient oriented x3 Limitations: Uses a wheelchair for long rides Head: Normal to inspection Ears: Hearing grossly normal bilaterally Nose: Normal external nose present Face and sinus: Normal facial exam Eyes: Appearance normal, both eyes and all related structures Neck: Normal visual inspection and Yes full ROM Respiratory: Diminished air movement bilaterally, able to speak in complete sentences without difficulty, trach present, without signs of surrounding infection (portable O2 as well) Cardiovascular: Regular rate and rhythm. Normal S1 and S2 GI: Normal to inspection. Soft to palpation and nontender, except for a werner-umbilical hernia with no pain reported Skin: No rashes or lesions noted, Neuro: Patient oriented x3, positive patellar reflexes, some weakness in lower extremities Extremities: Normal to inspection, no edema noted Results - Bone density scan: Reported as up to date. Plan 1. Annual Physical Examination The patient is doing quite well. She will get fasting lab work in the near future and will schedule her own mammogram. She has declined colonoscopy or Cologuard for colon cancer screening. She will continue to follow with her rabbit fancier and caddy/caddie supervisor as scheduled. 2. Periumbilical Hernia The patient has a longstanding periumbilical hernia which is asymptomatic. No intervention is planned at this time. 3. Muscle Weakness The patient has weakness in her bilateral lower extremities, for which she uses a wheelchair for long distances. Physical exam revealed positive patellar reflexes. Discussion Notes I discussed with the patient her overall good health status. We reviewed health maintenance, and she will proceed with a mammogram and fasting lab work. She understands the recommendation for colon cancer screening but declines to proceed with a colonoscopy or Cologuard at this time, given her age. She will continue to follow with her regular specialists, including her rabbit fancier and caddy/caddie supervisor. encouraged getting labs drawn in the bnear future Patient Instructions - Please get fasting lab work done soon. - Please schedule your mammogram. - You have chosen not to have a colonoscopy or Cologuard test at this time. - Continue to see your lung doctor (rabbit fancier) and heart doctor (caddy/caddie supervisor) as you normally do. [facility] Medical History Cardiomyopathy CAD (coronary artery disease) Pulmonary HTN Low back pain Cough Insomnia Endocrine alopecia Takotsubo syndrome Myocardial infarction HTN (hypertension) GERD (gastroesophageal reflux disease) Elevated cholesterol Tracheostomy dependence Chronic respiratory failure COPD (chronic obstructive pulmonary disease) Vocal cord paralysis Surgical History Hx of umbilical hernia repair Hx of tonsillectomy Hx of colonoscopy Hx of tracheostomy Family History Mother Cancer Father Diabetes Hypertension Social History Household Members: None Housing: Apartment Are you a primary pet care attendant to a significant other at home: No Do you presently have visiting nurse or other home services: Yes Patient Tobacco Use Status: Former Tobacco user Tobacco use type: Cigarette Years Smoked: 30+ years, quit September 2015 e-Cigarette/Vaping Use: Never Used Second Hand Smoke Exposure: No Cognitive needs: No Hearing needs: No Vision needs: No Questionnaire PHQ-9 Over the last 2 weeks, how often have you been bothered by any of the following problems? 1. Little interest or pleasure in doing things: not at all 2. Feeling down, depressed, or hopeless: not at all 3. Trouble falling or staying asleep, or sleeping too much: not at all 4. Feeling tired or having little energy: not at all 5. Poor appetite or overeating: not at all 6. Feeling bad about yourself - or that you are a failure or have let yourself or your family down: not at all 7. Trouble concentrating on things, such as reading the newspaper or watching television: not at all 8. Moving or speaking so slowly that other people could have noticed. Or the opposite - being so fidgety or restless that you have been moving around a lot more than usual: not at all 9. Thoughts that you would be better off or of hurting yourself in some way: not at all Total score: 0 Depression Screening Interpretation: Negative Depression Screening Done: Yes 51016 - PHQ-9 Billing: Yes Source: Developed by Drs. Milton Sheppard, Nabila Gutiérrez, Adriano Almanza and colleagues, with an educational alina from [employer]. Thrive Questionnaire Date Thrive assessed: 05/10/25 I am a: Patient What is your living situation today?: I have a steady place to live Within the past 12 months, did the food you bought not last and you didn't have the money to get more?: I choose not to answer this question Within the past 12 months, did you worry whether your food would run out before you got money to buy more?: I choose not to answer this question Do you have trouble paying for medicines?: No Do you have trouble getting transportation to medical appointments?: No Do you have trouble paying your heating and electricity bill?: No Do you have trouble taking care of your child, family member or friend?: No Do you have trouble with day-to-day activities such as bathing, preparing meals, shopping, managing finances, etc.?: I choose not to answer this question Are you currently unemployed and looking for a job?: No Are you interested in more education?: No Please select the resources that you would like help with: None Currently or been in a relationship where the following occur: I choose not to answer THRIVE Score: 0 AUDIT C Alcohol Use Questionnaire (AUDIT-C) 1. How often do you have a drink containing alcohol?: 2-4 times a month 2. How many drinks containing alcohol do you have on a typical day when you are drinking?: 1 or 2 3. How often do you have six or more drinks on one occasion?: Never Total Score: 2 Score Reviewed/Action Taken: Yes TARA-7 AMB Questionnaire TARA-7 Date TARA - 7 assessed: 05/10/25 Feeling nervous, anxious, or on edge: 0 = Not at all Not being able to stop or control worryin = Not at all Worrying too much about different things: 0 = Not at all Trouble relaxin = Not at all Being so restless that it is hard to sit still: 0 = Not at all Becoming easily annoyed or irritable: 0 = Not at all Feeling afraid as if something awful might happen: 0 = Not at all Total TARA-7 score (0-4 normal; 5-9 mild; 10-14 moderate; 15-21 severe): 0 Source: Developed by Drs. Milton Sheppard, Nabila Gutiérrez, Adriano Almanza and colleagues, with an educational alina from [employer]. TARA-7 Assessment Billing TARA-7 Assessment Tool: TARA-7 Assessment 65025 Physical exam (Primary Care) Vital Signs: Last Vital Signs Pulse 56 05/10/25 13:36 BP 120/72 05/10/25 14:14 Pulse Ox 92 05/10/25 14:14 Oxygen Delivery Method Nasal Cannula 05/10/25 14:14 Tobacco/Smoking Status: Tobacco use Status Tobacco use date assessed 05/10/25 05/10/25 13:54 Patient Tobacco Use Status Former Tobacco user 05/10/25 13:36 Tobacco use type Cigarette 05/10/25 13:36 e-Cigarette/Vaping Use Never Used 05/10/25 13:36 PHQ-9: PHQ-9 Score PHQ-9: Total score 0 05/10/25 14:14 Depression Screening Interpretation: Negative Thrive Assessment: Date of Thrive Assessment Date Thrive assessed 05/10/25 05/10/25 13:54 Currently or been in a relationship where the following occur: I choose not to answer Coding Level of Care Code Est Pt Prev Care >65y(61861) Diagnoses Encounter for routine adult physical exam with abnormal findings Z00. Additional Codes TARA-7 Assessment Billing - TARA-7 Assessment Tool: TARA-7 Assessment 10646 ([id number]) PHQ-9 - 33403 - PHQ-9 Billing: Yes ([id number]) Assessment & Plan Assessment & Plan (1) Encounter for routine adult physical exam with abnormal findings: Code(s): Z00. - Encounter for general adult medical examination with abnormal findings Category: Medical Plan . Orders: Orders Comprehensive [place]. Panel Fast Today Z00. - Encounter for general adult medical examination with abnormal findings TSH reflex Free T4 Today Z00. - Encounter for general adult medical examination with abnormal findings Lipid Panel Today Z00.01 - Encounter for general adult medical examination with abnormal findings Vitamin D 25-OH Total Today Z00. - Encounter for general adult medical examination with abnormal findings Complete Blood Count Auto Diff Today Z00. - Encounter for general adult medical examination with abnormal findings UA CC w/rflx Micro + Cult Today Z00.01 - Encounter for general adult medical examination with abnormal findings
[2025-05-10 14:14] VITALS: BP 120/72; O2SAT 92
== END 2025-05-10 14:34 | disposition home or self-care (01) ==
LOC: HO.HMCC 13:31
PROVIDERS: PCP Nurse Practitioner Family; Visit Provider Nurse Practitioner Family
DX: Z00.01 Encounter for general adult medical examination with abnormal findings (principal)

== ENCOUNTER → 2025-05-10 13:31 | Outpatient (BNVA) | payer MEDICARE, SELFPAY | PROVIDERS: PCP Nurse Practitioner Family; Visit Provider Nurse Practitioner Family | DX: Z00.01 Encounter for general adult medical examination with abnormal findings (principal); Z13.31 Encounter for screening for depression; Z13.39 Encounter for screening examination for other mental health and behavioral disorders | CPT/HCPCS: 96127; 99397 ==